=== PATIENT | male | born 1955 | race Caucasian/White ===

== ENCOUNTER → 2016-09-07 | Outpatient (CLI) | payer BC ==
[~2016-09-07] MED LIST: ALL180 PO; ASPCH81X PO; FLUT0.15 NAE; LISI5TAB3 PO; TPRSR/25 PO; VTMD1000 PO
[2016-09-07 17:47] LABS: URINE APPEARANCE CLEAR (CLEAR); URINE BILIRUBIN NEG (NEG); URINE COLOR YELLOW; URINE NITRITE NEG (NEG); URINE SPECIFIC GRAVITY 1.018 (1.000-1.030); UROBILINOGEN NEG (NEG)
[2016-09-07 17:56] LABS: BLOOD UREA NITROGEN 14 mg/dl (7-18); BUN/CREATININE RATIO 14.5 (10-20); CALCIUM 9.4 mg/dl (8.5-10.1); CARBON DIOXIDE 28 mmol/L (21-32); CHLORIDE 106 mmol/L (98-107); CREATININE 0.98 mg/dl (0.60-1.40); GLUCOSE 93 mg/dl (70-99); POTASSIUM 4.2 mmol/L (3.5-5.1); SODIUM 141 mmol/L (136-145)
[2016-09-07 17:58] LABS: MANUAL MICROSCOPIC REQUIRED? NO; REVIEW REQ? NO
== END | disposition home or self-care (01) ==
LOC: C.LAB 16:54
DX: N40.0 Benign prostatic hyperplasia without lower urinary tract symptoms (principal); R35.1 Nocturia

== ENCOUNTER → 2016-09-25 | Outpatient (CLI) | payer BC ==
--- NOTE | 2016-09-25 15:17 | DIAGNOSTIC IMAGING REPORT ---
KUB HISTORY: Generalized abdominal pain. COMPARISON: None. FINDINGS: The bowel gas pattern is unremarkable. There are no dilated loops of small bowel to suggest an obstruction. No renal calculi. No ureteral calculi. Calcifications in the deep pelvis likely represent phleboliths. No pneumoperitoneum or pneumatosis. Moderate well-formed stool seen within the colon. IMPRESSION: No evidence for bowel obstruction. Moderate well-formed stool seen within the colon. Electronically signed by: Sriram Choi M.D. 09/25/2016 3:16 PM Dictated Date/Time: 09/25/2016 3:15 PM
[2016-09-25 15:56] LABS: URINE APPEARANCE CLEAR (CLEAR); URINE BILIRUBIN NEG (NEG); URINE COLOR YELLOW; URINE NITRITE NEG (NEG); URINE SPECIFIC GRAVITY 1.023 (1.000-1.030); UROBILINOGEN NEG (NEG)
[2016-09-25 16:02] LABS: MANUAL MICROSCOPIC REQUIRED? NO; REVIEW REQ? NO
== END | disposition home or self-care (01) ==
LOC: C.RAD 14:26
DX: R10.9 Unspecified abdominal pain (principal); R30.0 Dysuria; K59.00 Constipation, unspecified

== ENCOUNTER → 2016-10-07 | Outpatient (CLI) | payer BC ==
--- NOTE | 2016-11-08 06:52 | CODING QUERY NO DIAGNOSIS ---
TREATMENT RENDERED WITHOUT A DIAGNOSIS To promote full compliance with coding requirements relating to patient care, physician participation is requested in all cases of drug abuse treatment specialist uncertainty. Please assist us with providing a diagnosis/symptom for the test(s) below: A diagnosis/symptom was not documented on your Order. A valid diagnosis/symptom is required to bill all insurances. Please remember that we are unable to code a diagnosis of rule out, probable, possible, questionable, or suspected. Tests that require a diagnosis: DOS 10/07 * Fecal Occult Blood DIAGNOSIS: Provider Signature: Date: Thank you Izzy Collazo [facility] Information Management Once completed, please kindly fax back to [phone] For questions please call [phone]
== END | disposition home or self-care (01) ==
LOC: C.LABSPEC 21:15
DX: Z01.89 Encounter for other specified special examinations (principal)

== ENCOUNTER → 2017-02-27 | Outpatient (CLI) | payer BC | END | disposition home or self-care (01) | LOC: C.LABSPEC 16:57 | PROVIDERS: ATTEND Urology | DX: R30.0 Dysuria (principal) ==

== ENCOUNTER → 2017-05-22 | Outpatient (CLI) | payer BC ==
--- NOTE | 2017-05-22 19:55 | DIAGNOSTIC IMAGING REPORT ---
KUB CLINICAL HISTORY: 61 years-old Male presenting with ABDOMINAL PAIN, CONSTIPATION. TECHNIQUE: Single supine view of the abdomen was obtained. COMPARISON: 09/25/2016. FINDINGS: Moderate stool burden primarily in the right and transverse colon. No bowel obstruction. No gross evidence of free intraperitoneal gas. Allowing for gas and stool, no calcifications project over the renal shadows or along the courses of the ureters. Left hemipelvis phlebolith noted, unchanged in position. Osseous structures normal. Lung bases clear. IMPRESSION: 1. Moderate stool burden in the right and transverse colon. No bowel obstruction. Electronically signed by: Kj Mcmahon M.D. 05/22/2017 7:54 PM Dictated Date/Time: 05/22/2017 7:52 PM
== END | disposition home or self-care (01) ==
LOC: C.RAD 18:49
DX: R10.9 Unspecified abdominal pain (principal); K59.00 Constipation, unspecified

== ENCOUNTER 2024-10-08 16:39 | Observation (INO) ==
[2024-10-08 17:07] LABS: Basophils # (auto) 0.03 K/uL (0.00-0.20); Basophils % (auto) 0.4 %; Eosinophils # (auto) 0.27 K/uL (0.00-0.50); Eosinophils % (auto) 3.5 %; Hematocrit (blood only) 33.5 % (42.0-52.0); Hemoglobin 10.4 g/dl (14.0-18.0); Immature Granulocytes % (auto) 1.3 %; Lymphocytes # (auto) 1.02 K/uL (1.20-3.40); Lymphocytes % (auto) 13.2 %; Mean Corpuscular Hemoglobin 29.4 pg (25.0-34.0); Mean Corpuscular Volume 94.6 fL (80.0-100.0); Mean Platelet Volume 8.1 fL (9.4-12.4); Monocytes # (auto) 0.99 K/uL (0.11-0.59); Monocytes % (auto) 12.8 %; Neutrophils # (auto) 5.32 K/uL (1.40-6.50); Neutrophils % (auto) 68.8 %; Platelet Count 310 K/uL (130-400); RDW Coefficient of Variation 14.9 % (11.5-14.5); RDW Standard Deviation 52.3 fL (36.4-46.3); Red Blood Count 3.54 M/uL (4.70-6.10); White Blood Count 7.73 K/ul (4.8-10.8)
--- NOTE | 2024-10-08 17:23 | Emergency Department Note ---
History of Present Illness General Chief Complaint: Cardiac Assessment Stated Complaint: CARDIAC ASSESSMENT Time Seen by Provider: 10/08/24 17:08 History of Present Illness Provider Complaint: chest pain Duration: improved and now resolved Onset: during rest Pain Location: substernal Maximum Pain Intensity: 1 Current Pain Intensity: 1 Quality: + sharp Relieved By: + nitroglycerin Exacerbated By: + nothing Context: + recent surgery (Recent type a aortic dissection repair); no recent illness, no recent travel or no trauma/injury Associated symptoms: + nausea; no diaphoresis, no dyspnea, no palpitations, no fever or no cough Patient is also reporting pain in his left lower extremity where he had to have a fasciotomy done after his dissection repair. Patient reports he was on wound VAC until yesterday. Home Medications Medication Instructions Recorded Confirmed Type montelukast 10 mg tablet 10 mg PO HS Congestion 04/29/19 10/08/24 History (Singulair) cholecalciferol (vitamin D3) 25 2,000 unit PO QAM 08/29/22 10/08/24 History mcg (1,000 unit) capsule (Vitamin D3) ezetimibe 10 mg tablet (Zetia) 10 mg PO DAILY 05/03/23 10/08/24 History finasteride 5 mg tablet 5 mg PO QAM 05/03/23 10/08/24 History fluticasone propionate 50 1 spray intranasal DAILY 06/26/24 10/08/24 History mcg/actuation nasal spray,suspension (Flonase Allergy Relief) ipratropium bromide 21 mcg (0.03 2 spray intranasal BID PRN nasal 09/12/24 10/08/24 Rx %) nasal spray drainage 90 days #3 BTLS acetaminophen 325 mg tablet 650 mg PO Q4H PRN Pain (Scale 10/08/24 10/08/24 History (Tylenol) Score 1-3) acetaminophen 500 mg tablet 1,000 mg PO Q4H PRN TEMP > 100.5 F 10/08/24 10/08/24 History (Tylenol Extra Strength) acetaminophen 500 mg tablet 1,000 mg PO Q8H 10/08/24 10/08/24 History (Tylenol Extra Strength) albuterol sulfate 2.5 mg/3 mL 2.5 mg inhalation Q4H PRN Wheezing 10/08/24 10/08/24 History (0.083 %) solution for nebulization albuterol sulfate 90 mcg/actuation 1 inh inhalation Q4H PRN Wheezing 10/08/24 10/08/24 History aerosol inhaler apixaban 5 mg tablet (Eliquis) 5 mg PO BID 10/08/24 10/08/24 History atorvastatin 40 mg tablet 80 mg PO HS 10/08/24 10/08/24 History baclofen 5 mg tablet 5 mg PO TID 10/08/24 10/08/24 History bisacodyl 10 mg rectal suppository 10 mg ME DAILY PRN Constipation 10/08/24 10/08/24 History calcium carbonate 500 mg PO Q8H PRN Indigestion 10/08/24 10/08/24 History carvedilol 6.25 mg tablet 6.25 mg PO BIDM 10/08/24 10/08/24 History cephalexin 500 mg capsule 500 mg PO QID 10/08/24 10/08/24 History docusate sodium 100 mg capsule 100 mg PO BID PRN Constipation 10/08/24 10/08/24 History furosemide 40 mg tablet (Lasix) 40 mg PO DAILY 10/08/24 10/08/24 History guaifenesin 600 mg tablet, 600 mg PO BID 10/08/24 10/08/24 History extended release 12 hr (Mucinex) hydrocortisone 2.5 % topical cream 1 applic topical BID PRN 10/08/24 10/08/24 History Hemorrhoids loratadine 10 mg tablet (Claritin) 10 mg PO DAILY PRN 10/08/24 10/08/24 History CONGESTION/ALLERGY SYMPTOMS lorazepam 0.5 mg tablet 0.5 mg PO TID PRN Anxiety 10/08/24 10/08/24 History naloxone 4 mg/actuation nasal spray 4 mg intranasal DIRECTED PRN 10/08/24 10/08/24 History Opioid Overdose nitroglycerin 0.4 mg sublingual 0.4 mg sublingual DIRECTED PRN 10/08/24 10/08/24 History tablet (Nitrostat) Chest Pain ondansetron HCl 4 mg tablet 4 mg PO Q6H PRN NAUSEA/VOMITING 10/08/24 10/08/24 History oxycodone 5 mg tablet 5 mg PO Q4H PRN Pain (Scale Score 10/08/24 10/08/24 History 4-6) oxycodone 5 mg tablet 10 mg PO Q4H PRN Pain (Scale Score 10/08/24 10/08/24 History 7-10) pantoprazole 40 mg tablet,delayed 40 mg PO DAILYBB 10/08/24 10/08/24 History release polyethylene glycol 3350 17 17 g PO DAILY 10/08/24 10/08/24 History gram/dose oral powder (Miralax) polyethylene glycol 3350 17 17 g PO QDL PRN Constipation 10/08/24 10/08/24 History gram/dose oral powder (Miralax) potassium chloride 20 mEq 20 meq PO BID 10/08/24 10/08/24 History tablet,extended release sennosides 8.6 mg-docusate sodium 1 tab-cap PO QDL PRN Constipation 10/08/24 10/08/24 History 50 mg tablet (Senokot-S) simethicone 80 mg chewable tablet 120 mg PO ACHS PRN GAS DISCOMFORT 10/08/24 10/08/24 History sodium chloride 0.65 % nasal spray 1 spray intranasal .Q 30 MINUTES 10/08/24 10/08/24 History aerosol PRN Congestion sodium phosphates 19 gram-7 118 ml ME DAILY PRN Constipation 10/08/24 10/08/24 History gram/118 mL enema (Fleet Enema) Allergies Allergy/AdvReac Type Severity Reaction Status Date / Time No Known Allergies Allergy Verified 10/08/24 19:00 Past Med/Surg History Problem List Chest pain (Acute) Sensorineural hearing loss, bilateral Left knee DJD Arthritis Bilateral groin pain Hearing difficulty of both ears Upper airway cough syndrome Exertional shortness of breath Chronic cough Allergic rhinitis with postnasal drip Chronic sinusitis Low back pain Nasal septal deviation Chronic rhinitis Pulmonary nodule Arthritis of carpometacarpal (CMC) joint of right thumb Bilateral hand numbness Trigger finger, right middle finger Prostate cancer screening Cervical facet syndrome (Chronic) Cervical spondylosis (Chronic) CAD (coronary artery disease) (Chronic) STENT X 1 TO LCX (2010) Per 06/05/18 records- cardiac cath in Jul 2010- lead to PCI to LCx (had significant and complex LCx disease in a dominant Cx vessel; RCA appeared chronically occluded with left to right collaterals; some residual non obstructive disease to LAD Hx of lipoma (Chronic) S/P EXCISION (BACK) History of herniorrhaphy (Chronic) DOUBLE HERNIA REPAIR Degenerative disc disease (Chronic) CERVICAL Osteoarthritis (Chronic) Sleep apnea (Chronic) PRIOR CPAP; RE-TEST S/P WEIGHT LOSS "NEGATIVE" History of cystoscopy (Chronic) Encounter for pre-operative examination History of bunionectomy (Chronic) RIGHT Osteoarthritis (Chronic) BPH (benign prostatic hyperplasia) (Chronic) H/O hemorrhoidectomy (Chronic) History of surgery (Chronic) ?TURBT History of colonoscopy (Chronic) GERD (gastroesophageal reflux disease) (Chronic) no meds > mild per pt > diet changed to correct History of appendectomy (Chronic) History of tooth extraction (Chronic) WISDOM TEETH History of tonsillectomy (Chronic) History of cardiac cath (Chronic) STENT X 1 TO LCX (2010) Hypertension (Chronic) MANAGED ON MEDICATIONS Hyperlipidemia (Chronic) MANAGED ON MEDICATIONS Asthma (Chronic) SEASONAL > only used res inh one time History of heart artery stent Medical History Adverse effect of anesthesia During one surgery had hard time regaining feeling in legs - possibly hemorrhoidectomy Diverticular disease incidental finding on colonoscopy - no issues/hospitalizations Hx of Lyme disease completed antibiotic tx Cervical spondylosis Limited ROM "I get a lot of crunching and crackles" as per patient Restless leg Pulmonary nodule Hx of sleep apnea "has had 2+ sleep studies - unable to tolerate cpap - recently did at home study and I never heard back. My says I snore." Osteoarthritis Hypertension Hyperlipidemia GERD (gastroesophageal reflux disease) Mild - "I haven't really had much in years, or any" Dyspnea pt denies Hypertrophy of nasal turbinates Chronic rhinitis Deviated septum CAD (coronary artery disease) x1 stent 2010 - [facility] Bronchitis "Chronic in the winter - no issues at present Asthma "it was just once" Ascending aorta dilatation 4.1cm per pt with last echo 06/2024 BPH (benign prostatic hyperplasia) "I put finasteride on temp hold" Surgical History Hx of bilateral inguinal hernia repair S/P excision of lipoma right shoulder Hx of wisdom tooth extraction Hx of tonsillectomy Hx of hemorrhoidectomy Hx of colonoscopy History of bunionectomy Bilateral History of bilateral cataract extraction Hx of appendectomy Status post coronary artery stent placement x1 2011 [facility] Hx of cardiac catheterization (2011) x1 stent [facility] History of transurethral resection of bladder tumor (TURBT) History of transurethral resection of prostate S/P trigger finger release right Hx of foot surgery Left Foot [employer] Bunion Correction Social History Smoking Status: Never smoker Second Hand Exposure: No; Do You Dip or Chew Tobacco: No; Hx Alcohol Use: Yes Alcohol type: beer and wine Hx Substance Use: No Preferred Language: [place] Communication Ability: Effective Visual Impairment: No Limitations Automation Tester Required: No Beliefs That Will Affect Care: Gnosticism Gnosticism Beliefs: CONFUCIANISM Current Living Situation: Spouse current occupational status: employed current occupation: Self employed programmer engineering and scientific Feels Safe at Home: Yes Assistive Devices: Glasses Physical Exam Vital Signs Vital Signs - 24 hr 10/08/24 16:39 10/08/24 16:42 10/08/24 16:42 Temperature 36.7 C Temperature Source Oral Pulse Rate 97 H 98 H Pulse Rate [Apical] Respiratory Rate 18 Respiratory Effort / Characteristics Non-Labored Spontaneous Respiratory Depth Normal Respiratory Pattern Regular Blood Pressure 165/110 H Blood Pressure [Left Arm] Blood Pressure Mean 128 Blood Pressure Mean [Left Arm] Blood Pressure Position [Left Arm] Pulse Oximetry 96 96 Oxygen Delivery Method Room Air Room Air Sepsis Recent Fever Within 48 Hours No Sepsis New/Unexplained Change in Mental Status N/A Sepsis Action Taken by Nursing No Action Required 10/08/24 16:42 10/08/24 16:51 10/08/24 16:51 Temperature Temperature Source Pulse Rate 96 H Pulse Rate [Apical] 96 H Respiratory Rate 17 17 Respiratory Effort / Characteristics Non-Labored Spontaneous Respiratory Depth Normal Respiratory Pattern Blood Pressure Blood Pressure [Left Arm] 160/106 H Blood Pressure Mean Blood Pressure Mean [Left Arm] 124 Blood Pressure Position [Left Arm] Semi-fowlers Pulse Oximetry 97 97 Oxygen Delivery Method Room Air Room Air Room Air Sepsis Recent Fever Within 48 Hours Sepsis New/Unexplained Change in Mental Status Sepsis Action Taken by Nursing 10/08/24 18:00 10/08/24 19:00 10/08/24 19:30 Temperature Temperature Source Pulse Rate Pulse Rate [Apical] 97 H 101 H 112 H Respiratory Rate 18 18 20 Respiratory Effort / Characteristics Non-Labored Spontaneous Respiratory Depth Normal Respiratory Pattern Blood Pressure Blood Pressure [Left Arm] 146/103 H 151/114 H 109/90 Blood Pressure Mean Blood Pressure Mean [Left Arm] 117 126 96 Blood Pressure Position [Left Arm] Semi-fowlers Pulse Oximetry 98 97 97 Oxygen Delivery Method Room Air Room Air Room Air Sepsis Recent Fever Within 48 Hours Sepsis New/Unexplained Change in Mental Status Sepsis Action Taken by Nursing 10/08/24 20:00 10/08/24 20:30 10/08/24 20:35 Temperature Temperature Source Pulse Rate 113 H Pulse Rate [Apical] 106 H 113 H Respiratory Rate 22 20 Respiratory Effort / Characteristics Respiratory Depth Respiratory Pattern Blood Pressure Blood Pressure [Left Arm] 156/113 H 138/102 H Blood Pressure Mean Blood Pressure Mean [Left Arm] 127 114 Blood Pressure Position [Left Arm] Pulse Oximetry 97 97 Oxygen Delivery Method Room Air Sepsis Recent Fever Within 48 Hours Sepsis New/Unexplained Change in Mental Status Sepsis Action Taken by Nursing 10/08/24 21:00 10/08/24 21:30 Temperature Temperature Source Pulse Rate Pulse Rate [Apical] 100 H 104 H Respiratory Rate 20 20 Respiratory Effort / Characteristics Respiratory Depth Respiratory Pattern Blood Pressure Blood Pressure [Left Arm] 136/101 H 150/98 H Blood Pressure Mean Blood Pressure Mean [Left Arm] 112 115 Blood Pressure Position [Left Arm] Pulse Oximetry 96 95 Oxygen Delivery Method Room Air Room Air Sepsis Recent Fever Within 48 Hours Sepsis New/Unexplained Change in Mental Status Sepsis Action Taken by Nursing Physical Exam GENERAL: Patient is in no acute distress listening music on his phone. HENT: Exam performed. - Head: Normocephalic and atraumatic. EYES: Conjunctivae and EOM are normal. Pupils are equal, round, and reactive to light. Right eye exhibits no discharge. Left eye exhibits no discharge. No scleral icterus. NECK: Normal range of motion. Neck supple. No JVD present. CV: Normal rate, regular rhythm, normal heart sounds and intact distal pulses. Palpable radial pulses bue. PULM/CHEST: Effort normal and breath sounds normal. No respiratory distress. No stridor. He has no wheezes. He has no rales. ABD: The abdomen is soft. MUSC/SKEL: Left lower extremity is wrapped in a bandage which he states he does not want me to remove. Under the bandage there is a palpable DP pulse. NEURO: He is alert and oriented to person, place, and time. He has normal strength. No cranial nerve deficit or sensory deficit. Course Course 1707: The patient was evaluated in room B10. A complete history and physical exam was performed Cardiac monitoring: An order was placed for continuous cardiac monitoring. The monitor shows a rate of 90 with sinus rhythm interpreted by me 1852: Vital signs stable. Labs show white blood cell count of 7.73 hemoglobin 10.4 platelet count 310 coagulation studies unremarkable. Electrolytes unremarkable. AST 61 ALT 72 alk phos 172 high-sensitivity troponin 44.3. Imaging shows an ascending thoracic aortic graft repair with surrounding blood products which are most likely postoperative without contrast extravasation or evidence of leak. 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 I discussed these cases with [facility] Dr. Vences. He states he was assisting the surgeon during his initial surgery earlier this month. I read him the reports of the CT verbatim and he states these are expected findings. He stated that the residual dissection was normal and the type of procedure that they performed to repair the patient's aorta. 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 I asked him if the patient need to be transferred to their facility at this time and he stated there is no need to transfer the patient at this time from a cardiothoracic surgery standpoint. Patient will be admitted to the hospitalist team for chest pain rule out ACS. Administered Medications Acetaminophen (Acetaminophen 500 Mg Tab) 1,000 mg PO TID PRN PRN Reason: Pain Stop: 11/07/24 20:59 Last Admin: 10/08/24 19:41 Dose: 1,000 mg Documented By: SHABNAM Discontinued Medications Ioversol (Optiray 320 125ml) 115 ml IV ONCE ONE Stop: 10/08/24 17:34 Last Admin: 10/08/24 17:33 Dose: 115 ml Documented By: MADELEINE Medical Decision Making Laboratory Data Attestation: I reviewed the patient's lab results. 10/08/24 16:46 10/08/24 16:46 Labs: Lab Results 10/08/24 10/08/24 10/08/24 Range/Units 16:46 17:20 18:50 WBC 7.73 (4.8-10.8) K/ul RBC 3.54 L (4.70-6.10) M/uL Hgb 10.4 L (14.0-18.0) g/dl POC Hgb 10.9 L (14.0-18.0) g/dl Hct 33.5 L (42.0-52.0) % POC Hct 32 L (42-52) % MCV 94.6 (80.0-100.0) fL MCH 29.4 (25.0-34.0) pg MCHC 31.0 L (32.0-36.0) g/dL RDW Std Deviation 52.3 H (36.4-46.3) fL RDW Coeff of Derrick 14.9 H (11.5-14.5) % Plt Count 310 (130-400) K/uL MPV 8.1 L (9.4-12.4) fL Immature Gran % (Auto) 1.3 % Neut % (Auto) 68.8 % Lymph % (Auto) 13.2 % Peach % (Auto) 12.8 % Eos % (Auto) 3.5 % Baso % (Auto) 0.4 % Neut # (Auto) 5.32 (1.40-6.50) K/uL Lymph # (Auto) 1.02 L (1.20-3.40) K/uL Peach # (Auto) 0.99 H (0.11-0.59) K/uL Eos # (Auto) 0.27 (0.00-0.50) K/uL Baso # (Auto) 0.03 (0.00-0.20) K/uL Immature Gran # (Auto) 0.10 (0.01-0.20) K/uL PT 11.6 (9.0-12.0) Seconds INR 1.1 (0.9-1.1) APTT 25 (21-31) Seconds PTT Ratio 0.9 POC Sodium 134 L (135-144) mmol/L Sodium 134 L (136-145) mmol/L POC Potassium 3.7 (3.3-5.0) mmol/L Potassium 4.2 (3.5-5.1) mmol/L POC Chloride 90 L (101-112) mmol/L Chloride 93 L (98-107) mmol/L Carbon Dioxide 37 H (21-32) mmol/L POC Total CO2 32 H (24-31) mmol/L Anion Gap 4 (3-11) POC Anion Gap 16.0 (16-25) mmol/L POC BUN 29 H (7-18) mg/dl BUN 33 H (6-23) mg/dl Creatinine 0.97 (0.6-1.4) mg/dl POC Creatinine 1.1 (0.6-1.3) mg/dl Est Cr Clr Drug Dosing 63.9 ml/min eGFR 83.98 BUN/Creatinine Ratio 34.0 H (10-20) Glucose 104 H (70-99(Fasting)) mg/dl POC Glucose (other) 101 H (70-99) mg/dl Calcium 9.6 (8.6-10.3) mg/dl POC Ioniz Calcium Jordan 1.20 (1.12-1.32) mmol/l Total Bilirubin 0.7 (0.2-1.0) mg/dl AST 61 H (13-39) U/L ALT 72 H (7-52) U/L Alkaline Phosphatase 172 H (34-104) U/L Troponin I High Sens 44.3 H 44.3 H (0-20) pg/ml Total Protein 6.4 (6.0-8.3) gm/dl Albumin 3.3 L (3.4-5.0) gm/dl Globulin 3.1 (2.5-4.0) gm/dl Albumin/Globulin Ratio 1.1 (0.9-2) Imaging Data Chest x-ray: Attestation: I personally reviewed and interpreted this imaging study as follows: My impression: Chest x-ray negative. Airway clear. No pneumothorax. No consolidation. No cardiomegaly or cephalization.. No free air under the diaphragm. No fractures of the skeletal structures. Radiologist's impression: Chest radiograph, one view History: Chest pain Comparison: 12/06/2021 Findings: Single AP view of the chest performed. No focal consolidation or pleural effusion. No pneumothorax. The cardiomediastinal silhouette is within normal limits. Normal pulmonary vascularity. No evidence for lymphadenopathy. No visualized bony or soft tissue abnormality. Median sternotomy wires in place. Impression: Normal chest radiograph Electronically signed by Carlos Mcclelland 10-08-2024 5:40 PM Dictated: 10/08/24 3027 Transcribed: CT scan - abdomen: Radiologist's impression: EXAMINATION: CT angiogram of the chest, abdomen and pelvis performed after the administration of IV contrast TECHNIQUE: Helical CT angiogram images from the lung apices through the symphysis pubis were obtained with and without contrast. Coronal and sagittal reformatted images were generated at a workstation for further assessment. Dose reduction techniques were achieved by using automatic exposure control and/or adjustment of mA and/or kV according to patient size and/or use of iterative reconstruction technique. COMPARISON: CT of the chest from September 11, 2024 HISTORY: Chest pain FINDINGS: Lines and tubes: None Mediastinum/Neck Base: The heart is enlarged. Evidence of an ascending thoracic aortic graft repair. High density blood products is seen to surround the ascending thoracic aorta. On the postcontrast angiographic images, there is no evidence for contrast extravasation. A dissection remains beyond the repair, extending from the proximal arch, and into the right brachiocephalic artery as well as the right subclavian artery, and also into the left common carotid artery. The dissection extends distally into the aorta, including the descending thoracic aorta into the abdominal aorta, and extending into the left common iliac and the left external and internal iliac arteries. There is relative decreased enhancement of the left sided iliac arteries, likely as it is supplied primarily by the false lumen. The true lumen is seen to supply the right sided iliac arteries. The true lumen supplies of the celiac artery, SMA, right renal artery, and the BRETT. The left renal artery is supplied by the false lumen. A femorofemoral bypass is seen. Extensive surgical clips seen throughout the left groin, as well as soft tissue fullness and fluid density, likely related to evolving hematoma. Normal thoracic vasculature. No thoracic lymphadenopathy. The heart size is enlarged, especially the right atrium. There are heavy coronary calcifications. Lungs: No consolidation. There are trace pleural effusions. No pneumothorax. There is a solid nodule in the lingula measuring 13 mm not significantly changed from 04/09/2023. Bibasilar subsegmental atelectasis. Liver: No suspicious liver lesions. Portal veins appear patent. Gallbladder: No gallstones. No evidence of acute cholecystitis. Spleen: Normal size. Pancreas: No suspicious pancreatic lesions. The pancreatic duct is not dilated. Adrenal glands: No adrenal nodules. Kidneys: No hydronephrosis or obstructing renal stones. Horseshoe morphology of the kidney. Extensive hypoenhancement throughout the periphery of the left renal moiety, suggesting infarct. Nonobstructing tiny stone is seen in the left renal moiety. Bladder / Pelvic organs: Unremarkable. Bowel: No bowel obstruction. No abnormal bowel wall thickening. The appendix is unremarkable. Lymph nodes: No retroperitoneal, mesenteric, or pelvic lymphadenopathy. Peritoneum / Retroperitoneum: No free fluid or air within the abdomen. Vessels: See above discussion concerning the abdominal aorta and major branch vessels. Bones and soft tissues: Degenerative changes of the spine. No acute osseous normality. Median sternotomy wires are in place. The bones of the sternal portions appear grossly unremarkable without destruction. No overlying fluid collection. IMPRESSION: 1. Interval changes of an ascending thoracic aortic graft repair. There is surrounding blood products, which is likely postoperative without contrast extravasation or evidence for leak. 2. Persistent dissection involving the great vessels, the descending thoracic aorta, abdominal aorta, and branch vessels, as above. 3. Evolving left renal moiety infarct, appears decreased from September 11, 2024. Electronically signed by Carlos Mcclelland 10-08-2024 6:28 PM Dictated: 10/08/24 [id number] Transcribed: CT scan - chest: Radiologist's impression: EXAMINATION: CT angiogram of the chest, abdomen and pelvis performed after the administration of IV contrast TECHNIQUE: Helical CT angiogram images from the lung apices through the symphysis pubis were obtained with and without contrast. Coronal and sagittal reformatted images were generated at a workstation for further assessment. Dose reduction techniques were achieved by using automatic exposure control and/or adjustment of mA and/or kV according to patient size and/or use of iterative reconstruction technique. COMPARISON: CT of the chest from September 11, 2024 HISTORY: Chest pain FINDINGS: Lines and tubes: None Mediastinum/Neck Base: The heart is enlarged. Evidence of an ascending thoracic aortic graft repair. High density blood products is seen to surround the ascending thoracic aorta. On the postcontrast angiographic images, there is no evidence for contrast extravasation. A dissection remains beyond the repair, extending from the proximal arch, and into the right brachiocephalic artery as well as the right subclavian artery, and also into the left common carotid artery. The dissection extends distally into the aorta, including the descending thoracic aorta into the abdominal aorta, and extending into the left common iliac and the left external and internal iliac arteries. There is relative decreased enhancement of the left sided iliac arteries, likely as it is supplied primarily by the false lumen. The true lumen is seen to supply the right sided iliac arteries. The true lumen supplies of the celiac artery, SMA, right renal artery, and the BRETT. The left renal artery is supplied by the false lumen. A femorofemoral bypass is seen. Extensive surgical clips seen throughout the left groin, as well as soft tissue fullness and fluid density, likely related to evolving hematoma. Normal thoracic vasculature. No thoracic lymphadenopathy. The heart size is enlarged, especially the right atrium. There are heavy coronary calcifications. Lungs: No consolidation. There are trace pleural effusions. No pneumothorax. There is a solid nodule in the lingula measuring 13 mm not significantly changed from 04/09/2023. Bibasilar subsegmental atelectasis. Liver: No suspicious liver lesions. Portal veins appear patent. Gallbladder: No gallstones. No evidence of acute cholecystitis. Spleen: Normal size. Pancreas: No suspicious pancreatic lesions. The pancreatic duct is not dilated. Adrenal glands: No adrenal nodules. Kidneys: No hydronephrosis or obstructing renal stones. Horseshoe morphology of the kidney. Extensive hypoenhancement throughout the periphery of the left renal moiety, suggesting infarct. Nonobstructing tiny stone is seen in the left renal moiety. Bladder / Pelvic organs: Unremarkable. Bowel: No bowel obstruction. No abnormal bowel wall thickening. The appendix is unremarkable. Lymph nodes: No retroperitoneal, mesenteric, or pelvic lymphadenopathy. Peritoneum / Retroperitoneum: No free fluid or air within the abdomen. Vessels: See above discussion concerning the abdominal aorta and major branch vessels. Bones and soft tissues: Degenerative changes of the spine. No acute osseous normality. Median sternotomy wires are in place. The bones of the sternal portions appear grossly unremarkable without destruction. No overlying fluid collection. IMPRESSION: 1. Interval changes of an ascending thoracic aortic graft repair. There is surrounding blood products, which is likely postoperative without contrast extravasation or evidence for leak. 2. Persistent dissection involving the great vessels, the descending thoracic aorta, abdominal aorta, and branch vessels, as above. 3. Evolving left renal moiety infarct, appears decreased from September 11, 2024. Electronically signed by Carlos Mcclelland 10-08-2024 6:28 PM Dictated: 10/08/24 [id number] Transcribed: ECG Data Attestation: I personally reviewed and interpreted this ECG as follows: Rate (beats per minute): 96 Rhythm: normal sinus Findings: no ST depression, no ST elevation or no prolonged QT [facility] Narrative 1708: The patient was evaluated in room B10. A complete history and physical exam was performed Cardiac monitoring: An order was placed for continuous cardiac monitoring. The monitor shows a rate of 90 with sinus rhythm interpreted by me 1852: Vital signs stable. Labs show white blood cell count of 7.73 hemoglobin 10.4 platelet count 310 coagulation studies unremarkable. Electrolytes unremarkable. AST 61 ALT 72 alk phos 172 high-sensitivity troponin 44.3. Imaging shows an ascending thoracic aortic graft repair with surrounding blood products which are most likely postoperative without contrast extravasation or evidence of leak. 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 I discussed these cases with [facility] Dr. Vences. He states he was assisting the surgeon during his initial surgery earlier this month. I read him the reports of the CT verbatim and he states these are expected findings. He stated that the residual dissection was normal and the type of procedure that they performed to repair the patient's aorta. 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 I asked him if the patient need to be transferred to their facility at this time and he stated there is no need to transfer the patient at this time from a cardiothoracic surgery standpoint. Patient will be admitted to the hospitalist team for chest pain rule out ACS. Impression & Plan Chest pain Discharge Plan Visit Data Chief Complaint: Cardiac Assessment Stated Complaint: CARDIAC ASSESSMENT ED Provider: Len Snell Discharge Problem: Chest pain Patient Disposition: Admitted As Inpatient Forms Stand Alone Forms: My [facility] Prescriptions Prescriptions: No Action ipratropium bromide 21 mcg (0.03 %) spray,non-aerosol 2 spray intranasal BID PRN (Reason: nasal drainage) 90 Days Qty: 3 4RF Rx Instructions: administer into each nostril cholecalciferol (vitamin D3) [Vitamin D3] 25 mcg (1,000 unit) capsule 2,000 unit PO QAM montelukast [Singulair] 10 mg Tablet 10 mg PO HS ezetimibe [Zetia] 10 mg Tablet 10 mg PO DAILY finasteride 5 mg tablet 5 mg PO QAM Patient Comments: "Temporary hold" fluticasone propionate [Flonase Allergy Relief] 50 mcg/actuation spray,suspension 1 spray intranasal DAILY Rx Instructions: administer into each nostril furosemide [Lasix] 40 mg Tablet 40 mg PO DAILY atorvastatin 40 mg Tablet 80 mg PO HS acetaminophen [Tylenol] 325 mg Tablet 650 mg PO Q4H PRN (Reason: Pain (Scale Score 1-3)) carvedilol 6.25 mg Tablet 6.25 mg PO BIDM Rx Instructions: must administer with a meal/food albuterol sulfate 2.5 mg /3 mL (0.083 %) Solution For Nebulization 2.5 mg INHALATION Q4H PRN (Reason: Wheezing) ondansetron HCl [Zofran] 4 mg Tablet 4 mg PO Q6H PRN (Reason: NAUSEA/VOMITING) sennosides-docusate sodium [Senokot-S] 8.6-50 mg Tablet 1 tab-cap PO QDL PRN (Reason: Constipation) acetaminophen [Tylenol Extra Strength] 500 mg Tablet 1,000 mg PO Q4H PRN (Reason: TEMP > 100.5 F) acetaminophen [Tylenol Extra Strength] 500 mg Tablet 1,000 mg PO Q8H lorazepam 0.5 mg Tablet 0.5 mg PO TID PRN (Reason: Anxiety) bisacodyl 10 mg Suppository 10 mg ME DAILY PRN (Reason: Constipation) cephalexin 500 mg Capsule 500 mg PO QID Rx Instructions: STARTED 10/05/24 pantoprazole 40 mg Tablet,Delayed Release (Dr/Ec) 40 mg PO DAILYBB Fleet Enema 19-7 gram/118 mL Enema 118 ml ME DAILY PRN (Reason: Constipation) nitroglycerin [Nitrostat] 0.4 mg Tablet, Sublingual 0.4 mg sublingual DIRECTED PRN (Reason: Chest Pain) docusate sodium 100 mg Capsule 100 mg PO BID PRN (Reason: Constipation) hydrocortisone 2.5 % Cream 1 applic TOPICAL BID PRN (Reason: Hemorrhoids) calcium carbonate [Tums 500] 500 mg calcium (1,250 mg) Tablet,Chewable 500 mg PO Q8H PRN (Reason: Indigestion) polyethylene glycol 3350 [Miralax] 17 gram/dose Powder 17 g PO QDL PRN (Reason: Constipation) polyethylene glycol 3350 [Miralax] 17 gram/dose Powder 17 g PO DAILY albuterol sulfate 90 mcg/actuation Hfa Aerosol Inhaler 1 inh INHALATION Q4H PRN (Reason: Wheezing) loratadine [Claritin] 10 mg Tablet 10 mg PO DAILY PRN (Reason: CONGESTION/ALLERGY SYMPTOMS) simethicone 80 mg Tablet,Chewable 120 mg PO ACHS PRN (Reason: GAS DISCOMFORT) oxycodone 5 mg Tablet 10 mg PO Q4H PRN (Reason: Pain (Scale Score 7-10)) oxycodone 5 mg Tablet 5 mg PO Q4H PRN (Reason: Pain (Scale Score 4-6)) sodium chloride 0.65 % Aerosol,[place] 1 spray INTRANASAL .Q 30 MINUTES PRN (Reason: Congestion) Eliquis 5 mg Tablet 5 mg PO BID guaifenesin [Mucinex] 600 mg Tablet Extended Release 12hr 600 mg PO BID potassium chloride 20 mEq Tablet Extended Release 20 meq PO BID naloxone 4 mg/actuation [place],Non-Aerosol 4 mg INTRANASAL DIRECTED PRN (Reason: Opioid Overdose) baclofen 5 mg Tablet 5 mg PO TID Referrals Referrals: Renee Perez MD [Primary Care Provider] - Discharge Problem: Chest pain Qualifiers: Chest pain type: unspecified Qualified Code(s): R07.9 - Chest pain, unspecified
[2024-10-08 17:32] LABS: iSTAT Creatinine 1.1 mg/dl (0.6-1.3); iSTAT Hemoglobin 10.9 g/dl (14.0-18.0); iSTAT Ionized Calcium 1.2 mmol/l (1.12-1.32); iSTAT Potassium 3.7 mmol/L (3.3-5.0)
[2024-10-08] MEDS: OPTIRAY 320 125ml IV ONE (17:33)
[2024-10-08 17:41] LABS: INR 1.1 (0.9-1.1); Partial Thromboplastin Ratio 0.9; Partial Thromboplastin Time 25 Seconds (21-31); Prothrombin Time 11.6 Seconds (9.0-12.0)
--- NOTE | 2024-10-08 17:42 | XRay Report ---
Chest radiograph, one view History: Chest pain Comparison: 12/06/2021 Findings: Single AP view of the chest performed. No focal consolidation or pleural effusion. No pneumothorax. The cardiomediastinal silhouette is within normal limits. Normal pulmonary vascularity. No evidence for lymphadenopathy. No visualized bony or soft tissue abnormality. Median sternotomy wires in place. Impression: Normal chest radiograph Electronically signed by Carlos Mcclelland 10-08-2024 5:40 PM
[2024-10-08 18:18] LABS: Albumin Globulin Ratio 1.1 (0.9-2); Albumin Level 3.3 gm/dl (3.4-5.0); Bilirubin,Total 0.7 mg/dl (0.2-1.0); Calcium 9.6 mg/dl (8.6-10.3); Creatinine Clr Calc Pharmacy 63.9 ml/min; Globulin 3.1 gm/dl (2.5-4.0); Potassium 4.2 mmol/L (3.5-5.1); Total Protein 6.4 gm/dl (6.0-8.3)
[2024-10-08 18:21] LABS: Troponin I High Sensitivity 44.3 pg/ml (0-20)
--- NOTE | 2024-10-08 18:28 | CT Scan Report ---
EXAMINATION: CT angiogram of the chest, abdomen and pelvis performed after the administration of IV contrast TECHNIQUE: Helical CT angiogram images from the lung apices through the symphysis pubis were obtained with and without contrast. Coronal and sagittal reformatted images were generated at a workstation for further assessment. Dose reduction techniques were achieved by using automatic exposure control and/or adjustment of mA and/or kV according to patient size and/or use of iterative reconstruction technique. COMPARISON: CT of the chest from September 11, 2024 HISTORY: Chest pain FINDINGS: Lines and tubes: None Mediastinum/Neck Base: The heart is enlarged. Evidence of an ascending thoracic aortic graft repair. High density blood products is seen to surround the ascending thoracic aorta. On the postcontrast angiographic images, there is no evidence for contrast extravasation. A dissection remains beyond the repair, extending from the proximal arch, and into the right brachiocephalic artery as well as the right subclavian artery, and also into the left common carotid artery. The dissection extends distally into the aorta, including the descending thoracic aorta into the abdominal aorta, and extending into the left common iliac and the left external and internal iliac arteries. There is relative decreased enhancement of the left sided iliac arteries, likely as it is supplied primarily by the false lumen. The true lumen is seen to supply the right sided iliac arteries. The true lumen supplies of the celiac artery, SMA, right renal artery, and the BRETT. The left renal artery is supplied by the false lumen. A femorofemoral bypass is seen. Extensive surgical clips seen throughout the left groin, as well as soft tissue fullness and fluid density, likely related to evolving hematoma. Normal thoracic vasculature. No thoracic lymphadenopathy. The heart size is enlarged, especially the right atrium. There are heavy coronary calcifications. Lungs: No consolidation. There are trace pleural effusions. No pneumothorax. There is a solid nodule in the lingula measuring 13 mm not significantly changed from 04/09/2023. Bibasilar subsegmental atelectasis. Liver: No suspicious liver lesions. Portal veins appear patent. Gallbladder: No gallstones. No evidence of acute cholecystitis. Spleen: Normal size. Pancreas: No suspicious pancreatic lesions. The pancreatic duct is not dilated. Adrenal glands: No adrenal nodules. Kidneys: No hydronephrosis or obstructing renal stones. Horseshoe morphology of the kidney. Extensive hypoenhancement throughout the periphery of the left renal moiety, suggesting infarct. Nonobstructing tiny stone is seen in the left renal moiety. Bladder / Pelvic organs: Unremarkable. Bowel: No bowel obstruction. No abnormal bowel wall thickening. The appendix is unremarkable. Lymph nodes: No retroperitoneal, mesenteric, or pelvic lymphadenopathy. Peritoneum / Retroperitoneum: No free fluid or air within the abdomen. Vessels: See above discussion concerning the abdominal aorta and major branch vessels. Bones and soft tissues: Degenerative changes of the spine. No acute osseous normality. Median sternotomy wires are in place. The bones of the sternal portions appear grossly unremarkable without destruction. No overlying fluid collection. IMPRESSION: 1. Interval changes of an ascending thoracic aortic graft repair. There is surrounding blood products, which is likely postoperative without contrast extravasation or evidence for leak. 2. Persistent dissection involving the great vessels, the descending thoracic aorta, abdominal aorta, and branch vessels, as above. 3. Evolving left renal moiety infarct, appears decreased from September 11, 2024. Electronically signed by Carlos Mcclelland 10-08-2024 6:28 PM
--- NOTE | 2024-10-08 19:33 | History & Physical Report ---
Date of Service October 08, 2024 Assessment & Plan (1) CAD (coronary artery disease): (2) Asthma: (3) BPH (benign prostatic hyperplasia): Plan 68-year-old male presents with chest pain after recent aortic dissection repair. Patient had repair done at [facility]. He has residual distal dissection that involve most of his descending aorta. He is a femorofemoral bypass. He had a wound VAC in place from fasciotomy on his lower extremity which is currently on cephalexin for infection. He has a mildly elevated troponin and presentation and an abnormal EKG although has some similar T wave changes to the postoperative EKG to compare. There appears to be no acute curre nt of injury. 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 #Chest pain elevated troponin. Patient has known history of coronary disease with a previous stent to his circumflex artery. Will trend his troponins we will get an echocardiogram will continue his carvedilol. Aspirin. Atorvastatin 40 apixaban 5 Zetia 10. The patient typically follows with [facility] cardiology #Peripheral artery disease with femorofemoral bypass and fasciotomies of his left lower extremity currently on cephalexin for antibiotic therapy with daily wound changes required. #Asthma patient follows with pulmonary medicine he does have pulmonary nodules with are stable. He will continue on his Singulair and have as needed Flonase for nasal congestion. #History of BPH patient has previously been on Proscar therapy but currently not receiving any he has previously had prostate procedures done to improve his flow. #DVT prevention is apixaban therapy at this time History of Present Illness Primary Care Provider: Renee Perez MD 68-year-old male who presented on September [address] [place] [address] was found to have a type B aortic dissection involving the aortic arch and extending to the great vessels. He was transferred emergently to [facility] for repair and was convalescing at [facility] when he developed some chest discomfort. His initial presenting symptoms was chest and jaw discomfort so he presented to our facility. He has a mildly elevated troponin to the 40s and an abnormal EKG although we do not have a postop EKG to compare to. He had a wound VAC on his leg from the bypass insertion site does not appear to be actively infected he is mildly anemic but his hemoglobin in the 10 g range, his renal function is stable and he is a known horseshoe kidney. The emergency room physician Dr. Snell reportedly discussed his imaging of his chest abdomen pelvis with [facility] and they feel his repair is intact. This also notes of femorofemoral bypass and that the dissection is still extended distally through the descending aorta into the iliac arteries including the renal arteries in the arteries of the gut some being supplied by the true lumen some being supplied by the false lumen Allergies Allergy/AdvReac Type Severity Reaction Status Date / Time No Known Allergies Allergy Verified 10/08/24 19:00 Home Medications Medication Instructions Recorded Confirmed Type montelukast 10 mg tablet 10 mg PO HS Congestion 04/29/19 10/08/24 History (Singulair) cholecalciferol (vitamin D3) 25 2,000 unit PO QAM 08/29/22 10/08/24 History mcg (1,000 unit) capsule (Vitamin D3) ezetimibe 10 mg tablet (Zetia) 10 mg PO DAILY 05/03/23 10/08/24 History finasteride 5 mg tablet 5 mg PO QAM 05/03/23 10/08/24 History fluticasone propionate 50 1 spray intranasal DAILY 06/26/24 10/08/24 History mcg/actuation nasal spray,suspension (Flonase Allergy Relief) ipratropium bromide 21 mcg (0.03 2 spray intranasal BID PRN nasal 09/12/24 10/08/24 Rx %) nasal spray drainage 90 days #3 BTLS acetaminophen 325 mg tablet 650 mg PO Q4H PRN Pain (Scale 10/08/24 10/08/24 H istory (Tylenol) Score 1-3) acetaminophen 500 mg tablet 1,000 mg PO Q4H PRN TEMP > 100.5 F 10/08/24 10/08/24 History (Tylenol Extra Strength) acetaminophen 500 mg tablet 1,000 mg PO Q8H 10/08/24 10/08/24 History (Tylenol Extra Strength) albuterol sulfate 2.5 mg/3 mL 2.5 mg inhalation Q4H PRN Wheezing 10/08/24 10/08/24 History (0.083 %) solution for nebulization albuterol sulfate 90 mcg/actuation 1 inh inhalation Q4H PRN Wheezing 10/08/24 10/08/24 History aerosol inhaler apixaban 5 mg tablet (Eliquis) 5 mg PO BID 10/08/24 10/08/24 History atorvastatin 40 mg tablet 80 mg PO HS 10/08/24 10/08/24 History baclofen 5 mg tablet 5 mg PO TID 10/08/24 10/08/24 History bisacodyl 10 mg rectal suppository 10 mg DE DAILY PRN Constipation 10/08/24 10/08/24 History calcium carbonate 500 mg PO Q8H PRN Indigestion 10/08/24 10/08/24 History carvedilol 6.25 mg tablet 6.25 mg PO BIDM 10/08/24 10/08/24 History cephalexin 500 mg capsule 500 mg PO QID 10/08/24 10/08/24 History docusate sodium 100 mg capsule 100 mg PO BID PRN Constipation 10/08/24 10/08/24 History furosemide 40 mg tablet (Lasix) 40 mg PO DAILY 10/08/24 10/08/24 History guaifenesin 600 mg tablet, 600 mg PO BID 10/08/24 10/08/24 History extended release 12 hr (Mucinex) hydrocortisone 2.5 % topical cream 1 applic topical BID PRN 10/08/24 10/08/24 History Hemorrhoids loratadine 10 mg tablet (Claritin) 10 mg PO DAILY PRN 10/08/24 10/08/24 History CONGESTION/ALLERGY SYMPTOMS lorazepam 0.5 mg tablet 0.5 mg PO TID PRN Anxiety 10/08/24 10/08/24 History naloxone 4 mg/actuation nasal spray 4 mg intranasal DIRECTED PRN 10/08/24 10/08/24 History Opioid Overdose nitroglycerin 0.4 mg sublingual 0.4 mg sublingual DIRECTED PRN 10/08/24 10/08/24 History tablet (Nitrostat) Chest Pain ondansetron HCl 4 mg tablet 4 mg PO Q6H PRN NAUSEA/VOMITING 10/08/24 10/08/24 History oxycodone 5 mg tablet 5 mg PO Q4H PRN Pain (Scale Score 10/08/24 10/08/24 History 4-6) oxycodone 5 mg tablet 10 mg PO Q4H PRN Pain (Scale Score 10/08/24 10/08/24 History 7-10) pantoprazole 40 mg tablet,delayed 40 mg PO DAILYBB 10/08/24 10/08/24 History release polyethylene glycol 3350 17 17 g PO DAILY 10/08/24 10/08/24 History gram/dose oral powder (Miralax) polyethylene glycol 3350 17 17 g PO QDL PRN Constipation 10/08/24 10/08/24 History gram/dose oral powder (Miralax) potassium chloride 20 mEq 20 meq PO BID 10/08/24 10/08/24 History tablet,extended release sennosides 8.6 mg-docusate sodium 1 tab-cap PO QDL PRN Constipation 10/08/24 10/08/24 History 50 mg tablet (Senokot-S) simethicone 80 mg chewable tablet 120 mg PO ACHS PRN GAS DISCOMFORT 10/08/24 10/08/24 History sodium chloride 0.65 % nasal spray 1 spray intranasal .Q 30 MINUTES 10/08/24 10/08/24 History aerosol PRN Congestion sodium phosphates 19 gram-7 118 ml DE DAILY PRN Constipation 10/08/24 10/08/24 History gram/118 mL enema (Fleet Enema) Past Med/Surg History Problem List Sensorineural hearing loss, bilateral Left knee DJD Arthritis Bilateral groin pain Hearing difficulty of both ears Upper airway cough syndrome Exertional shortness of breath Chronic cough Allergic rhinitis with postnasal drip Chronic sinusitis Low back pain Nasal septal deviation Chronic rhinitis Pulmonary nodule Arthritis of carpometacarpal (CMC) joint of right thumb Bilateral hand numbness Trigger finger, right middle finger Prostate cancer screening Cervical facet syndrome (Chronic) Cervical spondylosis (Chronic) CAD (coronary artery disease) (Chronic) STENT X 1 TO LCX (2010) Per 06/05/18 records- cardiac cath in Jul 2010- lead to PCI to LCx (had significant and complex LCx disease in a dominant Cx vessel; RCA appeared chronically occluded with left to right collaterals; some residual non obstructive disease to LAD Hx of lipoma (Chronic) S/P EXCISION (BACK) History of herniorrhaphy (Chronic) DOUBLE HERNIA REPAIR Degenerative disc disease (Chronic) CERVICAL Osteoarthritis (Chronic) Sleep apnea (Chronic) PRIOR CPAP; RE-TEST S/P WEIGHT LOSS "NEGATIVE" History of cystoscopy (Chronic) Encounter for pre-operative examination History of bunionectomy (Chronic) RIGHT Osteoarthritis (Chronic) BPH (benign prostatic hyperplasia) (Chronic) H/O hemorrhoidectomy (Chronic) History of surgery (Chronic) ?TURBT History of colonoscopy (Chronic) GERD (gastroesophageal reflux disease) (Chronic) no meds > mild per pt > diet changed to correct History of appendectomy (Chronic) History of tooth extraction (Chronic) WISDOM TEETH History of tonsillectomy (Chronic) History of cardiac cath (Chronic) STENT X 1 TO LCX (2010) Hypertension (Chronic) MANAGED ON MEDICATIONS Hyperlipidemia (Chronic) MANAGED ON MEDICATIONS Asthma (Chronic) SEASONAL > only used res inh one time History of heart artery stent Medical History Adverse effect of anesthesia During one surgery had hard time regaining feeling in legs - possibly hemorr hoidectomy Diverticular disease incidental finding on colonoscopy - no issues/hospitalizations Hx of Lyme disease completed antibiotic tx Cervical spondylosis Limited ROM "I get a lot of crunching and crackles" as per patient Restless leg Pulmonary nodule Hx of sleep apnea "has had 2+ sleep studies - unable to tolerate cpap - recently did at home study and I never heard back. My says I snore." Osteoarthritis Hypertension Hyperlipidemia GERD (gastroesophageal reflux disease) Mild - "I haven't really had much in years, or any" Dyspnea pt denies Hypertrophy of nasal turbinates Chronic rhinitis Deviated septum CAD (coronary artery disease) x1 stent 2010 - [facility] Bronchitis "Chronic in the winter - no issues at present Asthma "it was just once" Ascending aorta dilatation 4.1cm per pt with last echo 06/2024 BPH (benign prostatic hyperplasia) "I put finasteride on temp hold" Surgical History Hx of bilateral inguinal hernia repair S/P excision of lipoma right shoulder Hx of wisdom tooth extraction Hx of tonsillectomy Hx of hemorrhoidectomy Hx of colonoscopy History of bunionectomy Bilateral History of bilateral cataract extraction Hx of appendectomy Status post coronary artery stent placement x1 2011 [facility] Hx of cardiac catheterization (2010) x1 stent [facility] Card[facility] Fragin History of transurethral resection of bladder tumor (TURBT) History of transurethral resection of prostate S/P trigger finger release right Hx of foot surgery Left Foot [employer] Bunion Correction Social History Smoking Status: Never smoker Second Hand Exposure: No; Do You Dip or Chew Tobacco: No; Hx Alcohol Use: Yes Alcohol type: beer and wine Hx Substance Use: No Preferred Language: Slovenian Communication Ability: Effective Visual Impairment: No Limitations Art Specialist Required: No Beliefs That Will Affect Care: Faith Faith Beliefs: WORSHIP Current Living Situation: Spouse current occupational status: employed current occupation: Self employed civil transportation engineer Feels Safe at Home: Yes Assistive Devices: Glasses Review of Systems Review of Systems: Mild distress and fatigue no headache, no visual changes no speech or swallowing issues no chest pain, pressure or palpitations no shortness of breath, cough or wheezes no abdominal pain, nausea or vomiting, diarrhea or constipation no dysuria, hematuria or frequency no focal joint pain or swelling no back pain, CVA tenderness or radicular pain no bruising, bleeding or rashes no focal signs of weakness or numbness or altered sensation no complaints of anxiety or depression.. Physical Exam Physical Exam: The patient appeared well nourished and normally developed. Vital signs as documented. Head exam is normocephalic atraumatic Neck is without JVD, thyromegaly, or carotid bruits. Lungs are clear to auscultation, no focal loss of breath sounds Cardiac exam, Rhythm is regular.. No murmurs, rubs or gallops. Abdominal exam reveals normal bowel sounds, soft non tender, no masses Extremities are nonedematous and both pedal pulses are present Neurologic exam is alert and oriented, no focal loss of strength or sensation Skin is without bruises or rashes Psychologically is without concerns for anxiety or depression.. Results & Data Results & Data Vital Signs (Past 12 Hours) Vital Signs Temp Pulse Pulse Resp BP BP Pulse Ox 10/08/24 18:00 97 H 18 146/103 H 98 10/08/24 16:51 96 H 17 97 10/08/24 16:51 10/08/24 16:42 96 H 17 160/106 H 97 10/08/24 16:42 96 10/08/24 16:42 98.1 F 98 H 18 165/110 H 96 10/08/24 16:39 97 H O2 Del Method 10/08/24 18:00 Room Air 10/08/24 16:51 Room Air 10/08/24 16:51 Room Air 10/08/24 16:42 Room Air 10/08/24 16:42 Room Air 10/08/24 16:42 Room Air 10/08/24 16:39 Code Status & VTE Plan VTE Prophylaxis Plan VTE Prophylaxis will be ordered: Yes PG Care Time/CCT Total # of Minutes Spent Total Time Spent with Patient: Total time spent is greater than 50% in coordination of care (as documented) at patient's floor/unit and/or counseling patient: Coding Level of Care Code 69373 INT INP/OBS CARE 375MIN Diagnoses CAD (coronary artery disease) I25.10 Asthma J45.909 BPH (benign prostatic hyperplasia) N40.0
[2024-10-08] MEDS: ACETAMINOPHEN 500 MG TAB PO PRN (19:41)
[2024-10-08] MEDS ORDERED: MoRPHine SULFATE 2 MG/ML CARP IV PRN (22:39)
[2024-10-08] MEDS ORDERED: hydrALAZINE HCL 20 MG/ML VIAL IV PRN (22:39)
[2024-10-08] MEDS ORDERED: ALUMINUM/MAGNESIUM SUSP 30 ML UDC PO PRN (22:39)
[2024-10-08] MEDS ORDERED: ALBUTEROL HFA 8 GM INHALER INH PRN (22:39)
[2024-10-08] MEDS ORDERED: NITROGLYCERIN SL 0.4 MG/TAB TAB SL PRN (22:39)
[2024-10-08] MEDS ORDERED: ONDANSETRON INJ 2 MG/ML 2 ML VIAL IV PRN (22:39)
[2024-10-08] MEDS: oxyCODONE HCL IR 5 MG TAB (IMMEDIATE RELEASE) PO PRN (23:07)
[2024-10-08] MEDS: LORazepam 0.5 MG TAB PO PRN (23:08)
[2024-10-08] MEDS: MONTELUKAST SODIUM 10 MG TABLET PO SCH (23:09)
[2024-10-08] MEDS: EZETIMIBE 10 MG TAB PO SCH (23:12)
[2024-10-08] MEDS: cephALEXin 500 MG CAP PO SCH (23:12)
[2024-10-08] MEDS: BACLOFEN 10 MG TAB PO SCH (23:12)
[2024-10-08] MEDS: ATORVASTATIN 40 MG TAB PO SCH (23:13)
[2024-10-08] MEDS: guaiFENesin 600 MG TABCR PO SCH (23:14)
[2024-10-08] MEDS: APIXABAN 5 MG TABLET PO SCH (23:14)
[2024-10-08] MEDS: ROSUVASTATIN CALCIUM 20 MG TAB PO SCH (23:15)
[2024-10-08] MEDS: POTASSIUM CHLORIDE CRTAB 20 MEQ TABCR PO SCH (23:24)
[2024-10-08] MEDS: ACETAMINOPHEN 500 MG TAB PO SCH (23:28)
[2024-10-09] MEDS: ACETAMINOPHEN 500 MG TAB PO SCH (06:04)
--- OUTSIDE RECORDS SUMMARY | 2024-10-09 06:52 | External Medical Summary | Continuity of Care Document ---
Author Name Unknown Organization [facility] Address [address] [place] [address] [phone] Care Team Providers Care Building Rental Superintendent Name Role Phone Renee Perez Primary Care Physician [phone] [facility]counter [facility] [id number] Date(s): 09/11/24 - 09/23/[address] [id number] [phone] Encounter Diagnosis Type A aortic dissection(Discharge Diagnosis) - 09/11/24 S/P aortic dissection repair(Discharge Diagnosis) - 09/11/24 Lactic acidosis(Discharge Diagnosis) - 09/11/24 Hypotension(Discharge Diagnosis) - 09/11/24 Right ventricular dysfunction(Discharge Diagnosis) - 09/11/24 Acute blood loss as cause of postoperative anemia(Discharge Diagnosis) - 09/11/24 Thrombocytopenia(Discharge Diagnosis) - 09/11/24 Hyperglycemia(Discharge Diagnosis) - 09/11/24 Respiratory acidosis(Discharge Diagnosis) - 09/12/24 Hypercarbia(Discharge Diagnosis) - 09/12/24 Aortic aneurysm(Discharge Diagnosis) - 09/11/24 Dissection of ascending aorta(Final) - Postprocedural cardiogenic shock, initial encounter(Final) - Other secondary thrombocytopenia(Final) - Ankylosing spondylitis of multiple sites in spine(Final) - Essential (primary) hypertension(Final) - Acute posthemorrhagic anemia(Final) - Atelectasis(Final) - Acute kidney failure, unspecified(Final) - Hypo-osmolality and hyponatremia(Final) - Other acidosis(Final) - Hyperosmolality and hypernatremia(Final) - Unspecified jaundice(Final) - Hyperlipidemia, unspecified(Final) - Atherosclerotic heart disease of [place] coronary artery without angina pectoris (Final) - Benign prostatic hyperplasia without lower urinary tract symptoms(Final) - Postprocedural hypotension(Final) - Other disorders of electrolyte and fluid balance, not elsewhere classified (Final) - Fluid overload, unspecified(Final) - Solitary pulmonary nodule(Final) - Acute bronchitis, unspecified(Final) - Hyperglycemia, unspecified(Final) - Chronic total occlusion of coronary artery(Final) - exterminator termite (current) use of aspirin(Final) - Other intermediate (current) drug therapy(Final) - Coronary angioplasty status(Final) - Discharge Disposition: Inpatient Rehab Facility/Unit Attending Physician: MD Cesar Jonathan M Admitting Physician: JOSSE Trotter, Susana Croft Referring Physician: MD Kwasi, Aminata Montesinos Encounter Type: Inpatient Allergies, Adverse Reactions, Alerts No Known Medication Allergies Functional Status 09/23/24 Neurological Symptoms Numbness, Tingling, Weakness ADLs Moderate assistance Facial Symmetry Symmetric Gait Shuffling, Unsteady Swallowing Difficulty None Level of Consciousness Neuro Alert Hallucinations Present None Speech Pattern Clear 09/23/24 History of Fall in Last 3 Months Sagastume N o Presence of Secondary Diagnosis Sagastume Ye s Use of Ambulatory Aid Sagastume Crutches/can e/walker IV/Heparin Lock Fall Risk Sagastume Yes Gait/Transferring Fall Risk Sagastume Weak Mental Status Fall Risk Sagastume Oriented t o own ability Sagastume Fall Risk Score 60 Sagastume Fall Risk High risk Immunizations Given and Recorded Vaccine Date Status Refusal Reason SARS-CoV-2 mRNA (arianan 5y-11y) 1 04/04/22 Re corded SARS-CoV-2 (COVID-19) mRNA BNT-162b2 vax 2 04/15/21 Recorded SARS-CoV-2 (COVID-19) mRNA BNT-162b2 vax 3 09/14/20 Recorded SARS-CoV-2 (COVID-19) mRNA BNT-162b2 vax 4 08/17/20 Recorded tetanus/diphtheria/pertuss, acel (Tdap) 02/27/21 R ecorded tetanus/diphtheria/pertuss, acel (Tdap) 08/05/18 R ecorded tetanus/diphtheria/pertuss, acel (Tdap) 06/23/04 R ecorded zoster vaccine, inactivated 05/23/19 Recorded pneumococcal 23-valent vaccine 06/02/15 Recorded pneumococcal 23-valent vaccine 5 05/18/98 Recorded tetanus toxoids-diphtheria, Td (Adult) 6 01/10/94 Recorded 1Result Comment: [facility] 2Result Comment: 2022-01-24: Historical information-source unspecified 3Result Comment: 2022-01-24: Historical information-source unspecified 4Result Comment: 2022-01-24: Historical information-source unspecified 5Result Comment: 2022-01-24: Historical information-source unspecified 6Result Comment: 2022-01-24: Historical information-source unspecified Medications albuterol 0.5% for nebulization Start: 09/23/24 8:45:00 AM EDT, 0.5 mL, NEB, q4h, PRN: wheezing Start Date: 09/23/24 Status: Ordered Repeat number: 1 aspirin 81 mg oral delayed release tablet Start: 09/23/24 8:45:00 AM EDT, 1 tab, PO, Daily Start Date: 09/23/24 Status: Ordered Repeat number: 1 Ativan 0.5 mg oral tablet Start: 09/23/24 8:45:00 AM EDT, 1 tab, PO, tid, PRN: anxiety Start Date: 09/23/24 Status: Ordered Repeat number: 1 calcium gluconate Start: 09/23/24 8:45:00 AM EDT, 2,000 mg =, IV, As indicated, PRN: see order comments Start Date: 09/23/24 Status: Ordered Repeat number: 1 Colace 100 mg oral capsule Start: 09/23/24 8:45:00 AM EDT, 1 cap, PO, bid Start Date: 09/23/24 Status: Ordered Repeat number: 1 Coreg 3.125 mg oral tablet Start: 09/23/24 8:45:00 AM EDT, 1 tab, PO, bid Start Date: 09/23/24 Status: Ordered Repeat number: 1 cyclobenzaprine 5 mg oral tablet Start: 09/23/24 8:45:00 AM EDT, 1 tab, PO, tid, PRN: spasms Start Date: 09/23/24 Status: Ordered Repeat number: 1 Dilaudid 0.2 mg/mL injectable solution Start: 09/23/24 8:45:00 AM EDT, 1 mL, IV Push, ONCE, Refills: 0, PRN: dressing changes Start Date: 09/23/24 Status: Ordered Repeat number: 1 Dulcolax Laxative (vegetable base) 10 mg rectal suppository Start: 09/23/24 8:45:00 AM EDT, 1 supp, IL, Daily Start Date: 09/23/24 Status: Ordered Repeat number: 1 Eliquis 5 mg oral tablet Start: 09/23/24 8:45:00 AM EDT, 1 tab, PO, bid Start Date: 09/23/24 Status: Ordered Repeat number: 1 ezetimibe 10 mg oral tablet Start: 07/01/24 10:26:00 AM EST, 1 tab, PO, Daily, Disp# 90 tab, Refills: 2, Pharmacy: [facility] [id number] Start Date: 07/01/24 Status: Ordered Quantity: 90.0 Unit: tab Repeat number: 1 fexofenadine Start: 12/20/21 10:08:00 AM EDT, 180 mg =, PO, Daily, will prn take BID Start Date: 12/20/21 Status: Ordered Repeat number: 1 finasteride 5 mg oral tablet Start: 09/23/24 8:45:00 AM EDT, 1 tab, PO, Daily Start Date: 09/23/24 Status: Ordered Repeat number: 1 fluticasone 50 mcg/inh nasal spray Start: 12/26/22 11:33:00 AM EDT, 1 spray, each nostril, Daily Start Date: 12/26/22 Status: Ordered Repeat number: 1 guaiFENesin 600 mg oral tablet, extended release Start: 09/23/24 8:45:00 AM EDT, 1 tab, PO, bid Start Date: 09/23/24 Status: Ordered Repeat number: 1 HumaLOG Sliding Scale Low Dose Range: SSI, injection, subQ, 09/16/24 7:30:00 AM EDT, 09/16/24 7:20:04 AM EDT, Estimated correction need for patients using total insulin daily dose between 31 and 60 units., 09/15/24 10:59:00 EDT Start Date: 09/16/24 Stop Date: 09/16/24 Status: Completed Repeat number: 1 HumaLOG Sliding Scale Low Dose Range: SSI, injection, subQ, 09/16/24 4:30:00 PM EDT, 09/16/24 4:26:08 PM EDT, Estimated correction need for patients using total insulin daily dose between 31 and 60 units., 09/15/24 10:59:00 EDT Start Date: 09/16/24 Stop Date: 09/16/24 Status: Completed Repeat number: 1 HumaLOG Sliding Scale Low Dose Range: SSI, injection, subQ, 09/17/24 11:30:00 AM EDT, 09/17/24 12:38:18 PM EDT, Estimated correction need for patients using total insulin daily dose between 31 and 60 units., 09/15/24 10:59:00 EDT Start Date: 09/17/24 Stop Date: 09/17/24 Status: Completed Repeat number: 1 ipratropium 21 mcg/inh (0.03%) nasal spray Start: 12/26/22 11:35:00 AM EDT, 2 spray, each nostril, tid, PRN: as needed for allergy symptoms Start Date: 12/26/22 Status: Ordered Repeat number: 1 ketoconazole 2% topical cream Start: 09/27/23 11:59:00 AM EDT, 1 appl, topical, bid, Disp# 30 g, Refills: 5, to right foot, Pharmacy: [facility]/pharmacy #[id number] Start Date: 09/27/23 Status: Ordered Quantity: 30.0 Unit: g Repeat number: 6 Indication: Tinea pedis loratadine 10 mg oral capsule Start: 06/20/23 11:22:00 AM EST, 1 cap, PO, Daily Start Date: 06/20/23 Status: Ordered Repeat number: 1 magnesium sulfate Start: 09/23/24 8:45:00 AM EDT, 2,000 mg =, IV, As indicated, PRN: see order comments Start Date: 09/23/24 Status: Ordered Repeat number: 1 magnesium sulfate Start: 09/23/24 8:45:00 AM EDT, 4,000 mg =, IV, As indicated, PRN: see order comments Start Date: 09/23/24 Status: Ordered Repeat number: 1 Milk of Magnesia Start: 09/23/24 8:45:00 AM EDT, 30 mL, PO, Daily Start Date: 09/23/24 Status: Ordered Repeat number: 1 MiraLax Start: 09/23/24 8:45:00 AM EDT, 17 g =, PO, Daily Start Date: 09/23/24 Status: Ordered Repeat number: 1 montelukast 10 mg oral tablet Start: 02/22/24 8:27:00 PM EDT, 1 tab, PO, qPM, Disp# 90 tab, Refills: 1, Pharmacy: [facility] [id number] Start Date: 02/22/24 Status: Ordered Quantity: 90.0 Unit: tab Repeat number: 1 oxyCODONE 10 mg oral tablet Start: 09/23/24 8:46:00 AM EDT, 10 mg =, PO, ONCE, Refills: 0, PRN: dressing changes Start Date: 09/23/24 Status: Ordered Repeat number: 1 oxyCODONE 10 mg oral tablet Start: 09/23/24 8:46:00 AM EDT, 10 mg =, PO, q4h, Refills: 0, PRN: pain - severe (7-10) Start Date: 09/23/24 Status: Ordered Repeat number: 1 oxyCODONE 5 mg oral tablet Start: 09/23/24 8:46:00 AM EDT, 5 mg =, PO, q4h, Refills: 0, PRN: pain - moderate (4-6) Start Date: 09/23/24 Status: Ordered Repeat number: 1 potassium chloride Start: 09/23/24 8:46:00 AM EDT, 20 mEq =, IV, As indicated, PRN: see order comments Start Date: 09/23/24 Status: Ordered Repeat number: 1 Protonix 40 mg oral delayed release tablet Start: 09/23/24 8:45:00 AM EDT, 1 tab, PO, Daily Start Date: 09/23/24 Status: Ordered Repeat number: 1 rosuvastatin 40 mg oral tablet Start: 09/23/24 8:45:00 AM EDT, 1 tab, PO, Daily Start Date: 09/23/24 Status: Ordered Repeat number: 1 simethicone 80 mg oral tablet, chewable Start: 09/23/24 8:46:00 AM EDT, 1.5 tab, PO, ac and hs, PRN: Abdominal bloating - gas pain Start Date: 09/23/24 Status: Ordered Repeat number: 1 sodium chloride nasal 0.65% spray ([place]) Start: 09/23/24 8:46:00 AM EDT, 1 spray, each nostril, q30min, PRN: Discomfort Start Date: 09/23/24 Status: Ordered Repeat number: 1 Tylenol 500 mg oral tablet Start: 09/23/24 8:45:00 AM EDT, 2 tab, PO, q6h, PRN: fever/mild pain (1-3) Start Date: 09/23/24 Status: Ordered Repeat number: 1 Vitamin D3 Start: 12/20/21 10:06:00 AM EDT, 50 mcg =, PO, Daily Start Date: 12/20/21 Status: Ordered Repeat number: 1 Zofran 2 mg/mL injectable solution Start: 09/23/24 8:45:00 AM EDT, 2 mL, IV Push, q6h, PRN: nausea and vomiting Start Date: 09/23/24 Status: Ordered Repeat number: 1 Mental Status 09/22/24 Primary Language Yoruba Problem List Condition Confirmation Course Effective Dates Status H ealth Status Informant Acute bronchitis Confirmed Active Acute conjunctivitis Confirmed Active Allergic rhinitis Confirmed Active Ascending aorta dilation Confirmed Active Benign essential HTN Confirmed Active BPH (benign prostatic hyperplasia) Confirmed Active CAD in [place] artery Confirmed Active DDD (degenerative disc disease), cervical Confirmed Active DDD (degenerative disc disease), lumbar Confirmed Active ED (erectile dysfunction) Confirmed Active Hemorrhoid Confirmed Active Hyperlipidemia LDL goal <70 Confirmed Active Groin pain, chronic, left Confirmed Active Lesion of liver Confirmed Active Lipoma of right thigh Confirmed Active Indeterminate pulmonary nodules Confirmed Active Pain of right calf Confirmed Active Annual physical exam Confirmed Active Benign lymphoid polyp of colon Confirmed Active Diagnosis Diagnosis Type Effective Dates Health Status Clinical Service Informant Aortic aneurysm Discharge Diagnosis 09/11/24 Non-Specified Lactic acidosis Discharge Diagnosis 09/11/24 Non-Specified Hypotension Discharge Diagnosis 09/11/24 Non-Specified S/P aortic dissection repair Discharge Diagnosis 09/11/24 Non-Specified Thrombocytopenia Discharge Diagnosis 09/11/24 Non-Specified Hyperglycemia Discharge Diagnosis 09/11/24 Non-Specified Right ventricular dysfunction Discharge Diagnosis 09/11/24 Non-Specified Acute blood loss as cause of postoperative anemia Discharge Diagnosis 09/11/24 Non-Specified Type A aortic dissection Discharge Diagnosis 09/11/24 Non-Specified Respiratory acidosis Discharge Diagnosis 09/12/24 Non-Specified Hypercarbia Discharge Diagnosis 09/12/24 Non-Specified Procedures Procedure Date Related Diagnosis Body Site Status Shave biopsy of skin 09/27/[address] of abdomen 1 04/09/23 Completed Computed tomography (CT) of liver with contrast 2 03/24/[address] of chest without contrast 3 12/14/21 Completed EMG - Electromyography 4 12/06/21 Completed Trigger finger of right hand [address] of cervical spine 6 05/10/20 Co mpleted Plain X-ray of right hand 7 01/23/20 Completed Plain X-ray of sacroiliac joint 8 01/23/20 Completed X-ray of lumbosacral spine 9 01/23/20 Completed TURP - Transurethral resecti on of prostate 2017 Completed Hemorrhoidectomy 2016 Complete d Colonoscopy 10/25/15 Completed Transurethral incision of bladder neck 2015 Completed Repair of inguinal hernia 2011 Completed Angioplasty 2010 Completed Tonsillotomy 1958 Completed Bunionectomy Completed CT of chest 10 Completed Excision of lipoma Comple stephani 11. Numerous hepatic lesions have not significantly changed as compared to the 03/24/2022 examination. The larger lesions represent hemangiomas. The smaller lesions also likely represent hemangiomas but are not definitively characterized. 2. No new or enlarging liver lesion seen. 3. Horseshoe kidney noting bilateral nephrolithiasis. 4. Cardiomegaly with advanced coronary artery atherosclerosis. 5. a 14mm lingular pulmonary nodule is unchanged. See report of chest CT. 6. Additional findings as above. 2numerous hepatic lesions, larger ones c/w hemangiomas, smaller ones more difficult to categorize, but likely hemangiomas; horseshoe kidney, several L calculi; no change in lower lung nodules 3few scattered low suspicion solid pulm nodules up to 4mm; subpleural/fissural nodule in lingula 1.2cm, no change from 2015; 1.8 X 0.9 cm nodulein ant mediastinum, nonenlarged lymph node vs thymic nodule; indeterminant scattered ill-defined hypodense hepatic lesions, up to 4cm; fusiform dilatation of ascending aorta 4.1 X 4.0 cm 4normal 5middle finger 6[facility] Impression: 1. No acute bony abnormality seen involving the cervical spine 2. Multilevel spondylotic change 7[facility] Impression: 1. No fracture 8[facility] Impression: 1. No radiographic evidence of sacroiliitis 9[facility] Impression: 1. No acute findings. Degenerative changes 10[facility] Impression: 1 No acute intrathoracic abnormality 2 Stable scattered low suspicion solid pulmonary nodules measuring up to 4 mm Follow-up guidelines provided below. 3 Subpleural/fissural nodule within the lingula measuring 1 2 cm is also unchanged. As previously stated, in retrospect this nodule was likely present dating back to the 2014 chest radiographs Based on stability a benign lesion is favored 4. Hepatic leions are redemonstrated, previously described as hemangiomata on the 03/24/2022 exam. Results Laboratory List Name Date Basic Metabolic Panel (BMP) 09/23/24 Complete Blood Count (CBC w Platelets) Magnesium Level 09/23/24 Basic Metabolic Panel (BMP) 09/22/24 Complete Blood Count (CBC w Platelets) Magnesium Level 09/22/24 Complete Blood Count (CBC w Platelets) Magnesium Level 09/21/24 Nephrology Panel 09/21/24 Partial Thromboplastin Time (PTT) 5 Added on Lab order 09/20/24 Glucose Meter (GLUCOSE METER) 09/20/24 Nephrology Panel 09/20/24 Partial Thromboplastin Time (PTT) 5 Nephrology Panel (NEPHROLOGY PANEL) 09/20 Glucose Meter (GLUCOSE METER) 09/19/24 Added on Lab order 09/19/24 Partial Thromboplastin Time (PTT) 5 Glucose Meter (GLUCOSE METER) 09/17/24 HIT PF4 IgG Antibody 09/17/24 Complete Blood Count w Differential (CBC w Platelets and Diff) 09/16/24 Hemoglobin A1C 09/16/24 ALT Level (ALT) 09/15/24 AST Level (AST) 09/15/24 Alkaline Phosphatase (ALKALINE PHOSPHATA SE) 09/15/24 Bilirubin, Direct (BILIRUBIN, DIRECT) 05/02 Bilirubin, Total (BILIRUBIN, TOTAL) 09/15 Protein, Total (PROTEIN) 09/15/24 Arterial Blood Gases w/ Hgb and O2 Sat ( ABGs, w/ Hgb and O2 Sat) 09/15/24 Arterial Blood Gases w/ Hgb and O2 Sat ( ABGs, w/ Hgb and O2 Sat) 09/14/24 ALT Level (ALT) 09/14/24 AST Level (AST) 09/14/24 Alkaline Phosphatase (ALKALINE PHOSPHATA SE) 09/14/24 Bilirubin, Direct (BILIRUBIN, DIRECT) 09/14/24 Bilirubin, Total (BILIRUBIN, TOTAL) Protein, Total (PROTEIN) 09/14/24 Venous Blood Gases w/ Hgb, O2Sat (VBG Ve nous Blood Gas with HGB and O2SAT) 09/14/24 Arterial Blood Gases w/ Hgb and O2 Sat ( ABGs, w/ Hgb and O2 Sat) 09/14/24 Lactic Acid Level, Whole Blood 09/14/24 Venous Blood Gases w/ Hgb, O2Sat (VBG Ve nous Blood Gas with HGB and O2SAT) 09/14/24 ALT Level (ALT) 09/14/24 AST Level (AST) 09/14/24 Alkaline Phosphatase (ALKALINE PHOSPHATA SE) 09/14/24 Bilirubin, Direct (BILIRUBIN, DIRECT) 09/14/24 Bilirubin, Total (BILIRUBIN, TOTAL) Protein, Total (PROTEIN) 09/14/24 Blood Type/Antibody Screen (for possible transfusion) (TYPE AND SCREEN) 09/14/24 Lactic Acid Level, Whole Blood 09/14/24 Venous Blood Gases w/ Hgb, O2Sat (VBG Ve nous Blood Gas with HGB and O2SAT) 09/14/24 Lactic Acid Level, Whole Blood 09/13/24 Calcium, Ionized (Ionized Calcium) 5 Arterial Blood Gases w/ Hgb and O2 Sat ( ABGs, w/ Hgb and O2 Sat) 09/12/24 Venous Blood Gases w/ Hgb, O2Sat (VBG Ve nous Blood Gas with HGB and O2SAT) 09/12/24 Prothrombin Time w/ INR (PT/INR) 09/12/24 Arterial Blood Gases w/ Hgb and O2 Sat ( ABGs, w/ Hgb and O2 Sat) 09/12/24 Venous Blood Gases w/ Hgb, O2Sat (VBG Ve nous Blood Gas with HGB and O2SAT) 09/12/24 Venous Blood Gases w/ Hgb, O2Sat (VBG Ve nous Blood Gas with HGB and O2SAT) 09/12/24 Arterial Blood Gases w/ Hgb and O2 Sat ( ABGs, w/ Hgb and O2 Sat) 09/12/24 Potassium Level, Whole Blood (K Level, W hole Blood) 09/12/24 MRSA Surveillance (Nasal Swab) 09/12/24 Prothrombin Time w/ INR (PT/INR) 09/12/24 Arterial Blood Gases w/ Hgb and O2 Sat ( ABGs, w/ Hgb and O2 Sat) 09/12/24 Arterial Blood Gases w/ Hgb and O2 Sat ( ABGs, w/ Hgb and O2 Sat) 09/11/24 Calcium, Ionized (Ionized Calcium) 5 Venous Blood Gases w/ Hgb, O2Sat (VBG Ve nous Blood Gas with HGB and O2SAT) 09/11/24 Prothrombin Time w/ INR (Protime/INR) 09/11/24 Fibrinogen 09/11/24 Calcium, Ionized 09/11/24 Fibrinogen 09/11/24 ACT, by IStat (OR) (ACT KAOLIN ISTAT (OR )) 09/11/24 IStat Testing, Arterial (OR) (I-STAT GUERRERO EL,ART(OR)) 09/11/24 ACT, by IStat (OR) (ACT KAOLIN ISTAT (OR )) 09/11/24 IStat Testing, Arterial (OR) (I-STAT GUERRERO EL,ART(OR)) 09/11/24 ACT, by IStat (OR) (ACT KAOLIN ISTAT (OR )) 09/11/24 IStat Testing, Arterial (OR) (I-STAT GUERRERO EL,ART(OR)) 09/11/24 Prepare Cryoprecipitate. 09/11/24 IStat Testing, Arterial (OR) (I-STAT GUERRERO EL,ART(OR)) 09/11/24 Prepare Cryoprecipitate. 09/11/24 Prepare Platelets. 09/11/24 IStat Testing, Venous (OR) (I-STAT PANEL ,ANGIE(OR)) 09/11/24 Blood Type (ABO/Rh) (ABO/RH) 09/11/24 Blood Type/Antibody Screen (for possible transfusion) (TYPE AND SCREEN) 09/11/24 Blood Type/Antibody Screen (for possible transfusion) (TYPE AND SCREEN) 09/11/24 Most recent to oldest [Reference Range]: 1 2 3 4 Hct, POC [38-51 %] 34 % *LOW* (09/11/24 8:32 PM) 34 % *LOW* (09/11/24 7:51 PM) 35 % *LOW* (09/11/24 6:45 PM) Hgb, POC [12-17 g/dL] 11.6 g/dL *LOW* (09/11/24 8:32 PM) 11.6 g/dL *LOW* (09/11/24 7:51 PM) 11.9 g/dL *LOW* (09/11/24 6:45 PM) ABO/Rh O POSITIVE (09/14/24 3:30 AM) O POSITIVE (09/11/24 1:21 PM) O POSITIVE (09/11/24 1:20 PM) Antibody Scr NEGATIVE (09/14/24 3:30 AM) NEGATIVE (09/11/24 1:20 PM) NOT DONE (09/11/24 1:10 PM) Expires at 0600AM on 09/17/2024 (09/14/24 3:30 AM) 09/14/2024 (09/11/24 1:20 PM) 09/14/2024 (09/11/24 1:10 PM) # Units 2 (09/14/24 3:30 AM) 10 (09/11/24 5:28 PM) 15 (09/11/24 4:00 PM) 2 (09/11/24 4:00 PM) R Number NRQ (09/14/24 3:30 AM) NRQ (09/11/24 1:20 PM) NRQ (09/11/24 1:10 PM) HIT PF4 IgG Antibody Semi-Quantitati ve [<0.399 OD] 0.142 OD 1 (09/17/24 11:08 AM) eGFR CKD-EPI [>60 mL/min/1.73 m2] >90 mL/min/1.73 m2 (09/23/24 4:27 AM) 78 mL/min/1.73 m2 (09/22/24 4:35 AM) 72 mL/min/1.73 m2 (09/21/24 3:56 AM) Base Deficit, POC [0-2 mmol/L] 1 mmol/L (09/11/24 8:32 PM) 1 mmol/L (09/11/24 7:51 PM) 4 mmol/L *HI* (09/11/24 6:45 PM) Base Deficit (v), POC [0-2 mmol/L] 3 mmol/L *HI* (09/11/24 3:15 PM) Blood Glucose [70-120 mg/dL] 131 mg/dL 2 *HI* (09/17/24 12:38 PM) 143 mg/dL 3 *HI* (09/16/24 4:25 PM) 131 mg/dL 4 *HI* (09/16/24 7:19 AM) Estimated Average Glucose 117 mg/dL (09/16/24 3:31 AM) SaO2(a), POC [95-98 %] 100 % *HI* (09/11/24 8:32 PM) 100 % *HI* (09/11/24 7:51 PM) 100 % *HI* (09/11/24 6:45 PM) SaO2(v), POC [20-90 %] 100 % *HI* (09/11/24 3:15 PM) Lactate, Whole Blood [0.6-1.8 mmol/L] 1.5 mmol/L (09/14/24 3:18 AM) 1.6 mmol/L (09/14/24 12:08 AM) 1.7 mmol/L (09/13/24 8:09 PM) Request of Physician CBC with Platelets (09/20/24 5:03 AM) CBC with platelets (09/19/24 4:45 AM) Action Taken YES (09/20/24 5:03 AM) YES (09/19/24 4:45 AM) FiO2 (a) ROOM AIR % (09/12/24 2:00 AM) 60 % (09/11/24 11:43 PM) FiO2 (v) 60 % (09/11/24 11:43 PM) O2 Flow (a) 3 L/min (09/15/24 3:08 AM) 4 L/min (09/14/24 3:16 PM) 4 L/min (09/14/24 3:18 AM) O2 Flow (v) 4 L/min (09/14/24 7:59 AM) 4 L/min (09/14/24 3:18 AM) 4 L/min (09/14/24 12:08 AM) Estimated CrCl 73.19 mL/min (09/23/24 5:17 AM) 63.24 mL/min (09/22/24 11:13 AM) 63.24 mL/min (09/22/24 5:23 AM) MPV [9.0-12.2 fL] 8.4 fL *LOW* (09/23/24 4:27 AM) 8.5 fL *LOW* (09/22/24 4:35 AM) 8.9 fL *LOW* (09/21/24 2:10 PM) Immature Gran% 3.0 % (09/16/24 6:36 PM) Neut% 73.7 % (09/16/24 6:36 PM) Lymph% 12.5 % (09/16/24 6:36 PM) Coos% 10.2 % (09/16/24 6:36 PM) Baso% 0.2 % (09/16/24 6:36 PM) Eos% 0.4 % (09/16/24 6:36 PM) Immat Gran, Abs [0-0.4 K/uL] 0.41 K/uL *HI* (09/16/24 6:36 PM) Neut, Abs [2.0-7.7 K/uL] 10.19 K/uL *HI* (09/16/24 6:36 PM) Lymph, Abs [1.0-3.4 K/uL] 1.73 K/uL (09/16/24 6:36 PM) Coos, Abs [0-1.0 K/uL] 1.41 K/uL *HI* (09/16/24 6:36 PM) Baso, Abs [0-0.1 K/uL] 0.03 K/uL (09/16/24 6:36 PM) Eos, Abs [0-0.5 K/uL] 0.05 K/uL (09/16/24 6:36 PM) Type of Diff: AUTO (09/16/24 6:36 PM) RDW [11.5-14.2 %] 16.5 % *HI* (09/23/24 4:27 AM) 16.3 % *HI* (09/22/24 4:35 AM) 16.0 % *HI* (09/21/24 2:10 PM) Base Deficit 3.9 mmol/L (09/12/24 8:22 PM) 1.5 mmol/L (09/12/24 3:58 PM) 4.5 mmol/L (09/12/24 11:56 AM) Base Defic(v) 1.2 mmol/L (09/12/24 8:22 PM) 1.6 mmol/L 5 (09/12/24 3:58 PM) 4.3 mmol/L (09/12/24 11:56 AM) K, wb [3.5-5.0 mmol/L] 4.0 mmol/L (09/12/24 8:13 AM) B Comments CROSSMATCHED WITH ACC B60018 (09/11/24 1:10 PM) pH (a), POC [7.35-7.45 unit] 7.329 unit *LOW* (09/11/24 8:32 PM) 7.321 unit *LOW* (09/11/24 7:51 PM) 7.259 unit *LOW* (09/11/24 6:45 PM) pCO2 (a), POC [35-45 mmHg] 49.1 mmHg *HI* (09/11/24 8:32 PM) 49.9 mmHg *HI* (09/11/24 7:51 PM) 51.6 mmHg *HI* (09/11/24 6:45 PM) pO2 (a), POC [80-105 mmHg] 315 mmHg *HI* (09/11/24 8:32 PM) 365 mmHg *HI* (09/11/24 7:51 PM) 465 mmHg *HI* (09/11/24 6:45 PM) Base XS(a), POC [0-3 mmol/L] 0 mmol/L (09/11/24 4:12 PM) HCO3(a), POC [22-26 mmol/L] 25.8 mmol/L (09/11/24 8:32 PM) 25.8 mmol/L (09/11/24 7:51 PM) 23.1 mmol/L (09/11/24 6:45 PM) Ion Ca(wb), POC [1.12-1.32 mmol/L] 1.16 mmol/L (09/11/24 8:32 PM) 1.17 mmol/L (09/11/24 7:51 PM) 1.03 mmol/L *LOW* (09/11/24 6:45 PM) Na (wb), POC [138-146 mmol/L] 141 mmol/L (09/11/24 8:32 PM) 142 mmol/L (09/11/24 7:51 PM) 142 mmol/L (09/11/24 6:45 PM) K (wb), POC [3.5-4.9 mmol/L] 4.8 mmol/L (09/11/24 8:32 PM) 4.6 mmol/L (09/11/24 7:51 PM) 3.7 mmol/L (09/11/24 6:45 PM) pH (v), POC [7.31-7.41 unit] 7.487 unit *HI* (09/11/24 3:15 PM) pCO2 (v), POC [41-51 mmHg] 26.9 mmHg *LOW* (09/11/24 3:15 PM) pO2 (v), POC [15-60 mmHg] 186 mmHg *HI* (09/11/24 3:15 PM) HCO3(v), POC [23-28 mmol/L] 23.4 mmol/L (09/11/24 3:15 PM) Component RED CELLS (09/14/24 3:30 AM) CRYOPRECIPITATE (09/11/24 5:28 PM) CRYOPRECIPITATE (09/11/24 4:00 PM) PLATELETS (09/11/24 4:00 PM) MRSA Surveillance, on Admission [MSND] MRSA NOT detected (09/12/24 5:46 AM) Anion Gap [5-14 mmol/L] 10 mmol/L (09/23/24 4:27 AM) 10 mmol/L (09/22/24 4:35 AM) 6 mmol/L (09/21/24 3:56 AM) Hgb(a) [12.0-18.0 g/dL] 7.7 g/dL *LOW* (09/15/24 3:08 AM) 9.0 g/dL *LOW* (09/14/24 3:16 PM) 9.0 g/dL *LOW* (09/14/24 3:18 AM) Alb [3.5-5.2 g/dL] 3.1 g/dL *LOW* (09/21/24 3:56 AM) Lab orders combined with other orders received on the same specimen. g/dL 6 (09/20/24 5:02 AM) 3.1 g/dL *LOW* (09/20/24 5:01 AM) Alk Phos [40-130 unit/L] 132 unit/L 7 *HI* (09/15/24 3:09 AM) 89 unit/L 8 (09/14/24 3:17 PM) 65 unit/L 9 (09/14/24 3:44 AM) ALT [0-41 unit/L] 248 unit/L *HI* (09/15/24 3:09 AM) 192 unit/L *HI* (09/14/24 3:17 PM) 130 unit/L *HI* (09/14/24 3:44 AM) AST [0-40 unit/L] 229 unit/L *HI* (09/15/24 3:09 AM) 189 unit/L *HI* (09/14/24 3:17 PM) 168 unit/L *HI* (09/14/24 3:44 AM) Base XS(a) 3.9 mmol/L (09/15/24 3:08 AM) 2.6 mmol/L (09/14/24 3:16 PM) 2.6 mmol/L (09/14/24 3:18 AM) BUN [6-23 mg/dL] 24 mg/dL *HI* (09/23/24 4:27 AM) 24 mg/dL *HI* (09/22/24 4:35 AM) 29 mg/dL *HI* (09/21/24 3:56 AM) Ca [8.4-10.2 mg/dL] 9.5 mg/dL (09/23/24 4:27 AM) 9.2 mg/dL (09/22/24 4:35 AM) 9.0 mg/dL (09/21/24 3:56 AM) Ion Ca [1.15-1.27 mmol/L] 1.22 mmol/L (09/12/24 8:22 PM) 1.24 mmol/L (09/11/24 11:43 PM) 1.09 mmol/L *LOW* (09/11/24 8:49 PM) Cl- [98-107 mmol/L] 95 mmol/L *LOW* (09/23/24 4:27 AM) 90 mmol/L *LOW* (09/22/24 4:35 AM) 92 mmol/L *LOW* (09/21/24 3:56 AM) HCO3 [22-29 mmol/L] 29 mmol/L (09/23/24 4:27 AM) 29 mmol/L (09/22/24 4:35 AM) 32 mmol/L *HI* (09/21/24 3:56 AM) Cret [0.70-1.30 mg/dL] 0.89 mg/dL (09/23/24 4:27 AM) 1.03 mg/dL (09/22/24 4:35 AM) 1.10 mg/dL (09/21/24 3:56 AM) D Bili [<0.2 mg/dL] 0.2 mg/dL *HI* (09/15/24 3:09 AM) 0.2 mg/dL *HI* (09/14/24 3:17 PM) 0.2 mg/dL *HI* (09/14/24 3:44 AM) ACT (Kaolin), POC [74-137 seconds] 210 seconds *HI* (09/11/24 8:34 PM) 227 seconds *HI* (09/11/24 7:53 PM) 216 seconds *HI* (09/11/24 7:26 PM) Fibr [208-435 mg/dL] 278 mg/dL (09/11/24 9:53 PM) 280 mg/dL (09/11/24 8:49 PM) HbA1c [<5.7 %] 5.7 % 10 *HI* (09/16/24 3:31 AM) Glu [74-109 mg/dL] 122 mg/dL 11 *HI* (09/23/24 4:27 AM) 129 mg/dL 12 *HI* (09/22/24 4:35 AM) 136 mg/dL 13 *HI* (09/21/24 3:56 AM) Gluc Meter [74-109 mg/dL] 129 mg/dL *HI* (09/20/24 6:53 AM) 128 mg/dL *HI* (09/19/24 9:17 PM) 142 mg/dL *HI* (09/17/24 5:29 PM) HCO3(a) [21-28 mmol/L] 26.9 mmol/L (09/15/24 3:08 AM) 25.7 mmol/L (09/14/24 3:16 PM) 26.1 mmol/L (09/14/24 3:18 AM) Hct [39-48 %] 23.8 % *LOW* (09/23/24 4:27 AM) 22.8 % *LOW* (09/22/24 4:35 AM) 22.2 % *LOW* (09/21/24 2:10 PM) Hgb [13.0-17.0 g/dL] 7.5 g/dL *LOW* (09/23/24 4:27 AM) 7.2 g/dL *LOW* (09/22/24 4:35 AM) 7.2 g/dL *LOW* (09/21/24 2:10 PM) INR [0.9-1.1] 1.3 14 *HI* (09/12/24 3:59 PM) 1.2 15 *HI* (09/12/24 3:11 AM) 1.3 16 *HI* (09/11/24 9:53 PM) K [3.5-5.1 mmol/L] 4.5 mmol/L (09/23/24 4:27 AM) 4.0 mmol/L (09/22/24 4:35 AM) 4.2 mmol/L (09/21/24 3:56 AM) MCH [28-33 pg] 30.7 pg (09/23/24 4:27 AM) 30.4 pg (09/22/24 4:35 AM) 31.4 pg (09/21/24 2:10 PM) MCHC [32-36 g/dL] 31.5 g/dL *LOW* (09/23/24 4:27 AM) 31.6 g/dL *LOW* (09/22/24 4:35 AM) 32.4 g/dL (09/21/24 2:10 PM) MCV [81-96 fL] 97.5 fL *HI* (09/23/24 4:27 AM) 96.2 fL *HI* (09/22/24 4:35 AM) 96.9 fL *HI* (09/21/24 2:10 PM) Mg [1.6-2.6 mg/dL] 2.3 mg/dL (09/23/24 4:27 AM) 2.3 mg/dL (09/22/24 4:35 AM) 2.3 mg/dL (09/21/24 3:56 AM) Na [136-145 mmol/L] 134 mmol/L *LOW* (09/23/24 4:27 AM) 129 mmol/L *LOW* (09/22/24 4:35 AM) 130 mmol/L *LOW* (09/21/24 3:56 AM) SaO2(a) [95.0-98.0 %] 98.7 % *HI* (09/15/24 3:08 AM) 97.9 % (09/14/24 3:16 PM) 97.9 % (09/14/24 3:18 AM) pCO2(a) [35-48 mmHg] 33.0 mmHg *LOW* (09/15/24 3:08 AM) 33.0 mmHg *LOW* (09/14/24 3:16 PM) 35.0 mmHg (09/14/24 3:18 AM) pH(a) [7.35-7.45 unit] 7.520 unit *HI* (09/15/24 3:08 AM) 7.500 unit *HI* (09/14/24 3:16 PM) 7.480 unit *HI* (09/14/24 3:18 AM) PO4 [2.5-4.5 mg/dL] 2.2 mg/dL *LOW* (09/21/24 3:56 AM) Lab orders combined with other orders received on the same specimen. mg/dL 17 (09/20/24 5:02 AM) 1.8 mg/dL *LOW* (09/20/24 5:01 AM) Plts [150-350 K/uL] 326 K/uL (09/23/24 4:27 AM) 309 K/uL (09/22/24 4:35 AM) 305 K/uL (09/21/24 2:10 PM) pO2(a) [83-108 mmHg] 94.0 mmHg (09/15/24 3:08 AM) 67.0 mmHg *LOW* (09/14/24 3:16 PM) 83.0 mmHg (09/14/24 3:18 AM) PT [12.0-14.2 seconds] 16.4 seconds *HI* (09/12/24 3:59 PM) 15.3 seconds *HI* (09/12/24 3:11 AM) 16.1 seconds *HI* (09/11/24 9:53 PM) PTT [23-35 seconds] 41 seconds 18 *HI* (09/21/24 3:56 AM) 59 seconds 19 *HI* (09/20/24 5:01 AM) 66 seconds 20 *HI* (09/19/24 4:45 AM) RBC [4.40-5.60 M/uL] 2.44 M/uL *LOW* (09/23/24 4:27 AM) 2.37 M/uL *LOW* (09/22/24 4:35 AM) 2.29 M/uL *LOW* (09/21/24 2:10 PM) T Bili [0.0-1.2 mg/dL] 0.5 mg/dL (09/15/24 3:09 AM) 0.6 mg/dL (09/14/24 3:17 PM) 0.5 mg/dL (09/14/24 3:44 AM) Temp(a) 36.9 C (09/15/24 3:08 AM) 36.9 C (09/14/24 3:16 PM) 36.8 C (09/14/24 3:18 AM) Prot [6.4-8.3 g/dL] 5.2 g/dL *LOW* (09/15/24 3:09 AM) 5.0 g/dL *LOW* (09/14/24 3:17 PM) 4.8 g/dL *LOW* (09/14/24 3:44 AM) Temp(v) 36.5 C (09/14/24 7:59 AM) 36.8 C (09/14/24 3:18 AM) 36.8 C (09/14/24 12:08 AM) Base XS(v) 0.1 mmol/L (09/14/24 7:59 AM) 4.0 mmol/L (09/14/24 3:18 AM) 3.8 mmol/L (09/14/24 12:08 AM) HCO3(v) [24-28 mmol/L] 24.7 mmol/L (09/14/24 7:59 AM) 29.2 mmol/L *HI* (09/14/24 3:18 AM) 29.1 mmol/L *HI* (09/14/24 12:08 AM) Hgb(v) [12.0-18.0 g/dL] 8.4 g/dL *LOW* (09/14/24 7:59 AM) 9.1 g/dL *LOW* (09/14/24 3:18 AM) 8.9 g/dL *LOW* (09/14/24 12:08 AM) SaO2(v) 38.4 % (09/14/24 7:59 AM) 56.4 % (09/14/24 3:18 AM) 60.1 % (09/14/24 12:08 AM) pCO2(v) [41-51 mmHg] 39.0 mmHg *LOW* (09/14/24 7:59 AM) 46.0 mmHg (09/14/24 3:18 AM) 47.0 mmHg (09/14/24 12:08 AM) pH(v) [7.33-7.43 unit] 7.410 unit (09/14/24 7:59 AM) 7.410 unit (09/14/24 3:18 AM) 7.400 unit (09/14/24 12:08 AM) pO2(v) 24.0 mmHg (09/14/24 7:59 AM) 32.0 mmHg (09/14/24 3:18 AM) 32.0 mmHg (09/14/24 12:08 AM) WBC [4.0-10.4 K/uL] 16.59 K/uL *HI* (09/23/24 4:27 AM) 18.55 K/uL *HI* (09/22/24 4:35 AM) 17.52 K/uL *HI* (09/21/24 2:10 PM) 1Result Comment: Results <0.399 have a good negative predictive value for HIT with very rare false negative results. Positive ERICKSON OD results (>0.4) are sensitive but not veryspecific for HIT. Higher optical density (OD) values in the IgG ERICKSON test correlate wtih a higher likelihood of positivity in platelet activation assays, suchas the serotonin release assay (JUANA), and an increased likelihood of clinical HIT. For further testing on positive results, kindly call [phone] 2Result Comment: Performed at: [address] [place] [address] 3Result Comment: Performed at: [address] [place] [address] 4Result Comment: Performed at: [address] [place] [address] 5Result Comment: AIR BUBBLE IN SAMPLE; QUESTIONABLE RESULTS 6Result Comment: REQUEST CREDITED 7Result Comment: Low levels of ALKP may indicate a deficiency in zinc, magnesium, or malnutritionbutcan also be an indicator of a rare genetic disease hypophosphatasia (HPP). 8Result Comment: Low levels of ALKP may indicate a deficiency in zinc, magnesium, or malnutritionbutcan also be an indicator of a rare genetic disease hypophosphatasia (HPP). 9Result Comment: Low levels of ALKP may indicate a deficiency in zinc, magnesium, or malnutritionbutcan also be an indicator of a rare genetic disease hypophosphatasia (HPP). 10Result Comment: ADA Recommended Zearing Reference Range: Normal: <5.7% Prediabetes: 5.7-6.4% Diabetes: >6.4% Hb A1c results in patients with severe anemia or recent RBC transfusion are unreliable and do not represent the patient glycemic control. 11Result Comment: ADA recommendation for FASTING Serum/Plasma Glucose: Normal: 70-100 mg/dL Prediabetes: 100-125 mg/dL Diabetes: 126 mg/dL or higher 12Result Comment: ADA recommendation for FASTING Serum/Plasma Glucose: Normal: 70-100 mg/dL Prediabetes: 100-125 mg/dL Diabetes: 126 mg/dL or higher 13Result Comment: ADA recommendation for FASTING Serum/Plasma Glucose: Normal: 70-100 mg/dL Prediabetes: 100-125 mg/dL Diabetes: 126 mg/dL or higher 14Result Comment: Suggested therapeutic range for low-intensity Coumadin therapy for venous thromboembolism is INR 2.0-3.0 (ex: atrial fibrillation, history of TIA/stroke). For high risk patients, the suggested therapeutic range is INR 2.5-3.5 (ex: mechanical prosthetic valves). 15Result Comment: Suggested therapeutic range for low-intensity Coumadin therapy for venous thromboembolism is INR 2.0-3.0 (ex: atrial fibrillation, history of TIA/stroke). For high risk patients, the suggested therapeutic range is INR 2.5-3.5 (ex: mechanical prosthetic valves). 16Result Comment: Suggested therapeutic range for low-intensity Coumadin therapy for venous thromboembolism is INR 2.0-3.0 (ex: atrial fibrillation, history of TIA/stroke). For high risk patients, the suggested therapeutic range is INR 2.5-3.5 (ex: mechanical prosthetic valves). 17Result Comment: REQUEST CREDITED 18Result Comment: Heparin therapeutic range for Anti XA Activity from 0.3 to 0.7 IU/mL is 65-105 seconds. 19Result Comment: Heparin therapeutic range for Anti XA Activity from 0.3 to 0.7 IU/mL is 65-105 seconds. 20Result Comment: Heparin therapeutic range for Anti XA Activity from 0.3 to 0.7 IU/mL is 65-105 seconds. Radiology Reports (Most Recent Ten) * Exam Date Time Procedure Performing Provider Status 09/22/24 6:12 AM XR Chest 1 View Tabitha Viera; Ana islas Notes: (XR Chest 1 View) Reason For Exam: s/p aortic dissection XR Chest 1 View EXAMINATION: XR Chest 1 View CLINICAL HISTORY: s/p aortic dissection COMPARISON: 09/17/2024 FINDINGS: Intact midline sternotomy wires. Bilateral small pleural effusions with adjacent atelectasis. No pneumothorax. Mild interstitial pulmonary opacities. Unchanged moderate cardiomegaly. There are atherosclerotic calcifications of the aorta. The mediastinal silhouette is unchanged. Slightly enlarged central pulmonary vascularity. Unchanged osseous structures. IMPRESSION: 1. Mild pulmonary vascular congestion and unchanged small bilateral pleural effusions with adjacentatelectasis. 2. Stable moderate cardiomegaly. 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 CTA of the abdomen with intravenous contrast. Coronal, sagittal, 3-D MIP reformats. CONTRAST: Contrast Type (IV): Omnipaque 350 Contrast Volume (IV) in ml: 100.00 FINDINGS: CTA: AORTIC MEASUREMENTS: Annulus: 24 mm Sinus of Valsalva: 40 mm Sinotubular junction: 34 bone Maximum ascending diameter: 33 mm (repaired, opacified portion) Maximum descending diameter: 25 mm (opacified true lumen) AORTA: Status post aortic arch replacement with valve resuspension. Residual dissection flap withinthe aortic root terminating at the sinotubular junction. Normal caliber of the ascending aortic replacement. Circumferential periaortic hematoma surrounding the ascending aorta from the sinotubular junction to the proximal arch. Hematoma measures up to 3.5 cm in thickness with a few foci of intermixed gas. Arch dissection flap originates at the origin of the innominate artery. Dissection extends into theinnominate and bilateral proximal common carotid arteries. Moderate innominate and severe bilateralcommon carotid artery narrowing of the true lumen. Dissection extends throughout the visualized distal common carotid arteries and terminates at the origin of the right subclavian artery. No involvement of the left subclavian artery. Dissection extends throughout the thoracic and abdominal aorta to the level of the left external iliac artery as well as the proximal left internal iliac artery. Celiac, superior mesenteric, right renal and inferior mesenteric arteries arise from the true lumen and are patent. Left renal artery arises from the false lumen. Postsurgical changes of a femorofemoral bypass with normal opacification of the bypass graft. Normal caliber and opacification of the femoral trifurcations. Normal caliber and opacification of the right iliac arteries. CHEST: LUNGS/PLEURA: Moderate bilateral pleural effusions with overlying lower lobe compressive atelectasis. No pneumothorax. CENTRAL AIRWAYS: Dependent mucoid debris within the trachea. MEDIASTINUM/LYMPH NODES: Periaortic hematoma as above. No central pulmonary artery filling defect. 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 Lumen with minimal proximal opacification. Severe coronary artery calcification of the left anterior descending and circumflex arteries. No central pulmonary artery filling defect. Mild right atrial dilation. Reversal of the RV/LV ratio. CHEST WALL: Mild anasarca. Postsurgical changes of a median sternotomy. ABDOMEN/PELVIS: LIVER: Ill-defined hypodensities in the central and medial left hepatic lobe. These regions do not demonstrate simple fluid attenuation and are ultimately indeterminate. GALLBLADDER/DUCTS: Unremarkable SPLEEN: Unremarkable PANCREAS: Unremarkable ADRENALS: Unremarkable KIDNEYS/URETERS: Horseshoe kidney. Geographic hypodensity of the lateral and inferior left kidney in keeping with acute renal infarct, region of hyperperfusion is improved from preoperative CTA. Leftnephrolithiasis. No hydronephrosis. BLADDER: Distended. Intraluminal gas is consistent with recent Cardona. REPRODUCTIVE: Partially marked scrotal edema and/or hydroceles. BOWEL: No obstruction. No focal mural thickening. PERITONEUM/RETROPERITONEUM: No free fluid or free air. LYMPH NODES: No lymphadenopathy. VESSELS: As above. BODY WALL: Confluent anasarca. BONES: Median sternotomy. No acute osseous abnormality. IMPRESSION: 1. Postsurgical changes of a aortic arch replacement. Circumferential periaortic hematoma surrounding the ascending aorta measuring up to 3.5 cm in thickness. No evidence of extravasation from the graft replacement. 2. Residual dissection flap within the aortic root. Right coronary artery appears to arise from theaortic root false lumen with minimal opacification of the proximal artery. Severe calcification of the left coronary artery. 3. Arch dissection flap now originates at the innominate artery origin with extension into the innominate and bilateral common carotid arteries. Moderate innominate and severe proximal bilateral common carotid artery true luminal narrowing. 4. Dissection extends throughout the thoracic and abdominal aorta to the level of the distal left external iliac artery. 5. Left renal artery arises from the false lumen with a developing left renal infarct. Region of infarct/hypoperfusion appears improved/decreased from preoperative CTA. Horseshoe kidney morphology. 6. Patent bilateral femorofemoral bypass graft and visualized proximal femoral arteries. 7. Moderate bilateral simple pleural effusions with lower lobe compressive atelectasis. 8. Anasarca and marked scrotal edema/hydroceles. Findings discussed with JOSSE Farah at 09/17/2024 1:50 PM EDT via telephone. [place] Act 112: This study does not meet the requirements of [place] Act 112. 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 CTA of the abdomen with intravenous contrast. Coronal, sagittal, 3-D MIP reformats. CONTRAST: Contrast Type (IV): Omnipaque 350 Contrast Volume (IV) in ml: 100.00 FINDINGS: CTA: AORTIC MEASUREMENTS: Annulus: 24 mm Sinus of Valsalva: 40 mm Sinotubular junction: 34 bone Maximum ascending diameter: 33 mm (repaired, opacified portion) Maximum descending diameter: 25 mm (opacified true lumen) AORTA: Status post aortic arch replacement with valve resuspension. Residual dissection flap withinthe aortic root terminating at the sinotubular junction. Normal caliber of the ascending aortic replacement. Circumferential periaortic hematoma surrounding the ascending aorta from the sinotubular junction to the proximal arch. Hematoma measures up to 3.5 cm in thickness with a few foci of intermixed gas. Arch dissection flap originates at the origin of the innominate artery. Dissection extends into theinnominate and bilateral proximal common carotid arteries. Moderate innominate and severe bilateralcommon carotid artery narrowing of the true lumen. Dissection extends throughout the visualized distal common carotid arteries and terminates at the origin of the right subclavian artery. No involvement of the left subclavian artery. Dissection extends throughout the thoracic and abdominal aorta to the level of the left external iliac artery as well as the proximal left internal iliac artery. Celiac, superior mesenteric, right renal and inferior mesenteric arteries arise from the true lumen and are patent. Left renal artery arises from the false lumen. Postsurgical changes of a femorofemoral bypass with normal opacification of the bypass graft. Normal caliber and opacification of the femoral trifurcations. Normal caliber and opacification of the right iliac arteries. CHEST: LUNGS/PLEURA: Moderate bilateral pleural effusions with overlying lower lobe compressive atelectasis. No pneumothorax. CENTRAL AIRWAYS: Dependent mucoid debris within the trachea. MEDIASTINUM/LYMPH NODES: Periaortic hematoma as above. No central pulmonary artery filling defect. 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 Lumen with minimal proximal opacification. Severe coronary artery calcification of the left anterior descending and circumflex arteries. No central pulmonary artery filling defect. Mild right atrial dilation. Reversal of the RV/LV ratio. CHEST WALL: Mild anasarca. Postsurgical changes of a median sternotomy. ABDOMEN/PELVIS: LIVER: Ill-defined hypodensities in the central and medial left hepatic lobe. These regions do not demonstrate simple fluid attenuation and are ultimately indeterminate. GALLBLADDER/DUCTS: Unremarkable SPLEEN: Unremarkable PANCREAS: Unremarkable ADRENALS: Unremarkable KIDNEYS/URETERS: Horseshoe kidney. Geographic hypodensity of the lateral and inferior left kidney in keeping with acute renal infarct, region of hyperperfusion is improved from preoperative CTA. Leftnephrolithiasis. No hydronephrosis. BLADDER: Distended. Intraluminal gas is consistent with recent Cardona. REPRODUCTIVE: Partially marked scrotal edema and/or hydroceles. BOWEL: No obstruction. No focal mural thickening. PERITONEUM/RETROPERITONEUM: No free fluid or free air. LYMPH NODES: No lymphadenopathy. VESSELS: As above. BODY WALL: Confluent anasarca. BONES: Median sternotomy. No acute osseous abnormality. IMPRESSION: 1. Postsurgical changes of a aortic arch replacement. Circumferential periaortic hematoma surrounding the ascending aorta measuring up to 3.5 cm in thickness. No evidence of extravasation from the graft replacement. 2. Residual dissection flap within the aortic root. Right coronary artery appears to arise from theaortic root false lumen with minimal opacification of the proximal artery. Severe calcification of the left coronary artery. 3. Arch dissection flap now originates at the innominate artery origin with extension into the innominate and bilateral common carotid arteries. Moderate innominate and severe proximal bilateral common carotid artery true luminal narrowing. 4. Dissection extends throughout the thoracic and abdominal aorta to the level of the distal left external iliac artery. 5. Left renal artery arises from the false lumen with a developing left renal infarct. Region of infarct/hypoperfusion appears improved/decreased from preoperative CTA. Horseshoe kidney morphology. 6. Patent bilateral femorofemoral bypass graft and visualized proximal femoral arteries. 7. Moderate bilateral simple pleural effusions with lower lobe compressive atelectasis. 8. Anasarca and marked scrotal edema/hydroceles. Findings discussed with JOSSE Farah at 09/17/2024 1:50 PM EDT via telephone. [place] 112: This study does not meet the requirements of [place] 112. Workstation ID: [id number] Final Dictated by:MD Mcdaniel Luke A Dictated DT/TM:09/17/2024 1:55 Signed by:MD Mcdaniel Luke A Signed (Electronic Signature):09/17/2024 1:53 p * Exam Date Time Procedure Performing Provider Status 09/17/24 7:04 AM XR Chest 1 View Clementina Jackson Notes: (XR Chest 1 View) Reason For Exam: s/p OHS, postop cough with incisional/rib pain XR Chest 1 View EXAMINATION: XR Chest 1 View CLINICAL HISTORY: s/p OHS, postop cough with incisional/rib pain COMPARISON: Chest radiograph 09/16/2024. FINDINGS: Upright AP chest. Right IJ approach central catheter tip lower SVC. Mediastinal surgical clips. Intact and aligned sternotomy wires. Rotated left. Partially obscured cardiac silhouette, though with improved visualization from prior. Improved lung aeration with decreased bibasilar atelectasis. Decreased small pleural effusions. No pneumothorax. Unchanged osseous structures. IMPRESSION: Improved small pleural effusions and bibasilar atelectasis. Workstation ID: [id number] Final Dictated by:DO Barone Matthew D Dictated DT/TM:09/17/2024 8:47 Signed by:DO Barone Matthew D Signed (Electronic Signature):09/17/2024 8:46 a * Exam Date Time Procedure Performing Provider Status 09/16/24 1:04 PM XR Chest 2 Views Eyal Scanlon; Final Notes: (XR Chest 2 Views) Reason For Exam: sp ohs, ct removal XR Chest 2 Views EXAMINATION: XR Chest 2 Views CLINICAL HISTORY: sp ohs, ct removal COMPARISON: Chest radiograph 09/15/2024. FINDINGS: Upright AP chest. Right IJ approach central venous catheter tip lower SVC. Unchanged sternotomy wires accounting for leftward rotation on frontal image. Partially obscured cardiac silhouette by bibasilar atelectasis adjacent small pleural effusions. Increased size of effusions from prior radiograph. Normal pulmonary vasculature. No pneumothorax. Trace residual retrosternal postoperative air and presternal soft tissue emphysema. IMPRESSION: Increased small pleural effusions. Associated bibasilar atelectasis. Workstation ID: [id number] Final Dictated by:DO Barone Matthew D Dictated DT/TM:09/16/2024 1:10 Signed by:DO Barone Matthew D Signed (Electronic Signature):09/16/2024 1:09 p * Exam Date Time Procedure Performing Provider Status 09/15/24 5:30 AM XR Chest 1 View Alexia Ardon; Eric fontenot Notes: (XR Chest 1 View) Reason For Exam: Atelectasis XR Chest 1 View EXAMINATION: XR Chest 1 View CLINICAL HISTORY: Atelectasis COMPARISON: 09/14/2024 FINDINGS: AP radiographs of the chest. Right IJ central venous catheter with tip in the low SVC. Median sternotomy wires. Stable enlargement of the cardiomediastinal silhouette. Stable small right-sided and trace left-sided pleural effusion. Stable mild bibasilar atelectasis. Increasing perihilar opacities with interstitial markings. Biapical scarring. Unchanged osseous structures. IMPRESSION: 1. Perihilar and interstitial opacities, which may represent developing pulmonary edema. 2. Stable small right and trace left pleural effusions with adjacent atelectasis. Dr. Abhijeet Burgess is the dictating resident. Finalized reports status indicates that the attending has reviewed the images and report, and agrees with the interpretation. Preliminary report status should be regarded as NOT interpreted by the attending radiologist. Workstation ID: [id number] Final Dictated by:MD Burgess Aroh Jamanadas Dictated DT/TM:09/15/2024 10:12 Resident:MD Jenifer, Abhijeet Coley Signed by:MD Ankit, Bibi Islas Signed (Electronic Signature):09/15/2024 10:11 * Exam Date Time Procedure Performing Provider Status 09/14/24 7:15 AM XR Chest 1 View Alexia Ardon; Ana islas Notes: (XR Chest 1 View) Reason For Exam: Atelectasis XR Chest 1 View EXAMINATION: XR Chest 1 View CLINICAL HISTORY: Atelectasis COMPARISON: Prior study dated 09/13/2024 FINDINGS: AP supine radiograph of the chest. Sternotomy wires. Right IJ central venous catheter with tip in the low SVC. Normal cardiomediastinal silhouette. Bibasilar atelectasis. Small bilateral pleural effusions. No pneumothorax. Unchanged osseous structures. IMPRESSION: Bibasilar atelectasis and small bilateral pleural effusions Workstation ID: [id number] Final Dictated by:MD Mayen Eric A Dictated DT/TM:09/14/2024 10:06 Signed by:MD Mayen Eric A Signed (Electronic Signature):09/14/2024 10:05 * Exam Date Time Procedure Performing Provider Status 09/13/24 4:38 PM XR Chest 1 View Courtney Tucker; Final Notes: (XR Chest 1 View) Reason For Exam: s/p d/c Chest Tube XR Chest 1 View EXAMINATION: XR Chest 1 View CLINICAL HISTORY: S/P D/C Chest Tube COMPARISON: Prior study dated 09/13/2024 FINDINGS: AP upright portable radiograph of the chest. Sternotomy wires. Right IJ central venous catheter with tip in the low SVC. Normal cardiomediastinal silhouette. Bibasilar atelectasis. Small right pleural effusion. No pneumothorax. Unchanged osseous structures. IMPRESSION: Bibasilar atelectasis, mildly increased Workstation ID: [id number] Final Dictated by:MD Mayen Eric A Dictated DT/TM:09/13/2024 4:49 Signed by:MD Mayen Eric A Signed (Electronic Signature):09/13/2024 4:48 p * Exam Date Time Procedure Performing Provider Status 09/13/24 7:00 AM XR Chest 1 View Blayne Andrade; Eric fontenot Notes: (XR Chest 1 View) Reason For Exam: s/p Ao arch replacement XR Chest 1 View EXAMINATION: XR Chest 1 View CLINICAL HISTORY: Status post aortic arch replacement COMPARISON: Prior study dated 09/12/2024 FINDINGS: AP 80 degrees semierect portable radiograph of the chest. Postoperative chest. Surgical drains. Right IJ central venous catheter with tip in the low SVC. Inferior approach pulmonary artery catheter with tip in the left pulmonary artery. Normal cardiomediastinal silhouette. Bibasilar atelectasis. No pneumothorax or large pleural effusion. Unchanged osseous structures. IMPRESSION: Bibasilar atelectasis, mildly increased Workstation ID: [id number] Final Dictated by:MD Mayen Eric A Dictated DT/TM:09/13/2024 12:03 Signed by:MD Mayen Eric A Signed (Electronic Signature):09/13/2024 12:02 * Exam Date Time Procedure Performing Provider Status 09/12/24 6:00 AM XR Chest 1 View Tabitha Jackson; Final Notes: (XR Chest 1 View) Reason For Exam: Post Procedure Post Open Heart Surgery POD 1 XR Chest 1 View EXAMINATION: XR Chest 1 View CLINICAL HISTORY: Post Procedure Post Open Heart Surgery POD 1 COMPARISON: 09/11/2024 FINDINGS: AP upright portable radiographs of the chest. Postoperative chest. Surgical drains. Right IJ central venous catheter with tip in the low SVC. Unchanged cardiomediastinal silhouette. Bibasilar atelectasis, mildly increased on the right. No pneumothorax or large pleural effusion. Unchanged osseous structures. IMPRESSION: Bibasilar atelectasis, mildly increased on the right since yesterday. Dr. Abhijeet Burgess is the dictating resident. Finalized reports status indicates that the attending has reviewed the images and report, and agrees with the interpretation. Preliminary report status should be regarded as NOT interpreted by the attending radiologist. Workstation ID: [id number] Final Dictated by:MD Jenifer, Abhijeet Coley Dictated DT/TM:09/12/2024 9:42 Resident:MD Jenifer, Abhijeet Coley Signed by:MD Pham Kathryn L Signed (Electronic Signature):09/12/2024 9:41 a Anatomic Pathology Reports * Report Case Number Specimen Responsible Pathologist Report Status Surgical Pathology Report [id number] MD Morales Jozef; Final * Event Display: SP Disclaimer [facility] performs the technical component for work verified at [facility]([address] [place] [address]; CLIA [id number]), [facility] ([address] [facility] [address]; CLIA [id number]), and [facility] ([address] [place] [id number]; CLIA [id number]). [facility] performs the technical component for work verified at [facility] ([address], [address], [place] [address]; CLIA [id number]) and [facility] ([address] [place] [id number]; CLIA [id number]). All laboratories are under the Clinical Laboratory Improvement Amendments of 1988 (CLIA-88) as qualified to perform high complexity clinical laboratory testing. The following statement applies to flow cytometry, immunohistochemical, histochemical, molecular genetics, immunofluorescence, and in situ hybridization assays. These tests were developed and their performance characteristics determined by a [facility] Department of Pathology Laboratory. All controls show appropriate reactivity. Not all tests have been cleared or approved by the U.S. Food and Drug Administration. The FDA has determined that such clearance or approval is not necessary. For decalcified specimen types, focused validation may have been done that may or may not apply to all decalcified specimen types. Results should be interpreted with caution. MD Morales Jozef:VERIFY; Authored Date: [id number] * Event Display: SP Gross 1. Received fresh labeled patient's name, medical record number, and "ascending aorta", consists ofmultiple fragments of large-caliber vessel measuring 9.5 x 4.5 x 1.5 cm in aggregate. The adventitial surfaces are pink-purple, glistening with focal areas of possible red-brown hemorrhage. The innerwall shows focal yellow streaking. Sectioning reveals red-brown blood clot between the adventitial surface and the underlying vessel wall. Team Physician sections are submitted. Block summary: 1A ([facility])_ MD Morales Jozef:VERIFY; Authored Date: * Event Display: SP Dx 1. Aorta, ascending, dissection repair: - Aortic dissection. - Atherosclerosis. Delbert Morales MD (Electronically signed by) Verified: 09/17/2024 15:51 EDT Performing Location: [facility] MD Morales Jozef:VERIFY; Authored Date: * Event Display: SP Clinical History Ascending aortic dissection MD Morales Jozef:VERIFY; Authored Date: * Event Display: SP Micro 1. Histologic sections of the aorta demonstrate aortic dissection within the background of myxoid degeneration and fragmentation of elastin meshwork, confirmed by elastin stain. Atherosclerotic changes with mild intimal thickening are also noted (see comment). Comment: Aortic dilation and dissection may be associated with atherosclerosis and arterial hypertension. Itis also common in connective tissue disorders, such as Marfan syndrome and a variety of non-Marfan connective tissue defects in the setting of familial or sporadic mutations. Correlation with clinical, imaging and other patient data is recommended. MD Morales Jozef:VERIFY; Authored Date: Vital Signs Most recent to oldest [Reference Range]: 1 2 3 Height 175 cm (09/11/24 11:00 PM) Patient Weight 70.9 kg (09/23/24 4:17 AM) 73.2 kg (09/22/24 4:02 AM) 74.4 kg (09/21/24 2:22 AM) Body Mass Index 24.42 kg/m2 (09/12/24 6:00 AM) 24.13 kg/m2 (09/11/24 11:00 PM) Temperature [36.5-37.9 DegC] 36.6 DegC (09/23/24 12:06 PM) 36.5 DegC (09/23/24 8:00 AM) 36.7 DegC (09/23/24 4:11 AM) Heart Rate 88 bpm (09/23/24 12:06 PM) 101 bpm (09/23/24 8:00 AM) 88 bpm (09/23/24 4:11 AM) Respiratory Rate 16 br/min (09/23/24 12:06 PM) 22 br/min (09/23/24 8:00 AM) 15 br/min (09/23/24 4:11 AM) Blood Pressure 112/71mmHg (09/23/24 12:07 PM) 133/61mmHg (09/23/24 9:07 AM) 95/67mmHg (09/23/24 4:11 AM) Mean Blood Pressure 80 mmHg (09/23/24 12:07 PM) 82 mmHg (09/23/24 9:07 AM) 75 mmHg (09/23/24 4:11 AM) Cuff Pulse Pressure 28 mmHg (09/23/24 4:11 AM) 44 mmHg (09/23/24 12:13 AM) 50 mmHg (09/22/24 8:28 PM) BP Location # 1 Right Arm (09/23/24 12:07 PM) Right Arm (09/23/24 9:07 AM) Right Arm, Non-invasive (09/23/24 4:11 AM) Social History Social History Type Response Smoking Status Never smoked cigaret michael Sex Male Sex Representation Male (finding) Implantable Device List Procedure Provider Procedure Date Device Type Site Unknown Unknown 09/11/24 Unknown Unknown Device Identifier Serial Number Lot or Batch Number Manufacturing Date Expiration Date Distinct Identification Code MRI Safety Implantable Status Assigning Authority Unknown Unknown [id number] Unknown 03/08/27 Unknown Unknown Active Unknown Unknown Unknown N/A Unknown 10/30/28 Unknown Unknown Active Unkn own EKG study * Contributor_system, MUSE01: VERIFY, PERFORM Event Display: EKG Authored Date: [id number] Please click on link to see image. * Contributor_system, [email or web address]: VERIFY, PERFORM Event Display: EKG Authored Date: [id number] Please click on link to see image. * Contributor_system, MUSE01: VERIFY, PERFORM Event Display: EKG Authored Date: Please click on link to see image. Anes H&P * MD Culver Christopher A: MODIFY MD Culver Christopher A: MODIFY, PERFORM MD Culver Christopher A: PERFORM, SIGN MD Culver Christopher A: SIGN, VERIFY MD Culver Christopher A: VERIFY, MODIFY, MODIFY Event Display: Anes H&P Authored Date: [id number] Patient: MASOOD ORELLANA Age: 68 years Sex: Male : 1955 Associated Diagnoses: None Author: MD Culver Christopher A Preoperative Information Pre-Operative Diagnosis: Aortic dissection . Anesthiesia Preop Info: No Scheduled Surgeries Found. . History of Present Illness 68 year old, 67kg male w/ PMH of CAD (s/p angioplasty and stenting of LCX in 2009, known chronic total occlusion of RCA w/ L to R collaterals), prior ascending aorta dilation (Ao root 4.2 cm and descending Ao 4.1cm on 06/2024 CT scan), BPH, hyperlipidemia, pulmonary nodules who is a transfer form [facility] for emergent surgical repair of ascending aortic dissection. PRIOR AIRWAYS: - None on file PRIOR ECHO: -TTE 06/2024 Summary 1. Normal left ventricular size and systolic function with no regional wall motion abnormalities. 2. Ejection fraction as calculated by Biplane Simpsons method is 60%. 3. No left ventricular hypertrophy. 4. Grade I diastolic dysfunction of the left ventricle (impaired relaxation pattern) with Indterminate left atrial pressure. 5. Normal left atrial size. 6. Mildly dilated right atrium. 7. Mildly dilated right ventricle with normal systolic function. 8. Dilated aortic root (4.2 cm) and ascending aorta (4.1 cm) with effacement of the sinotubular junction. Normal aortic arch. 9. Trace to mild aortic insufficiency. 10. Mild mitral valve regurgitation. 11. Mild to moderate tricuspid valve regurgitation. 12. Mild pulmonary regurgitation. 13. Mildly elevated pulmonary artery pressures; estimated PASP is 41 mmHg and PAMP is 22 mmHg. 14. Compared to the previous study performed 12/12/2022, ascending aorta size is unchanged. ANTICOAGULATION/ANTIPLATELETS: - ASA 81mg (unknown when last dose) LABS: - Most recent labs 04/18/2024: Potassium 4.4, bicarb 31, creatinine 0.88, glucose 100 ALT 18, AST 22 No recent CBC in EMR or outside records. NPO: - Gianni Marshall MD PGY-3 Resident Anesthesiology & Perioperative Medicine 09/11/2024 12:44:45 Medical History Medical Devices: Medical Devices: none . Health Status Allergies: Allergic Reactions (Selected) No Known Medication Allergies. Medications: Medication List (Selected) Prescriptions Prescribed Metoprolol Succinate ER 25 mg oral tablet, extended release: 1 tab, PO, Daily, 360 tab, 0 Refill(s) ezetimibe 10 mg oral tablet: 1 tab, PO, Daily, 90 tab, 2 Refill(s) ketoconazole 2% topical cream: 1 appl, topical, bid, to right foot, 30 g, 5 Refill(s) lisinopril 40 mg oral tablet: 1 tab, PO, Daily, 90 tab, 2 Refill(s) meloxicam 7.5 mg oral tablet: 1 tab, PO, Daily, 90 tab, 3 Refill(s) montelukast 10 mg oral tablet: 1 tab, PO, qPM, 90 tab, 1 Refill(s) rosuvastatin 40 mg oral tablet: See Instructions, 1 tab PO Every other day, 90 tab, 3 Refill(s) Documented Medications Documented Aspir-Low 81 mg oral delayed release tablet: 1 tab, PO, Daily Fish Oil 1000 mg oral capsule: Vitamin D3: 50 mcg, PO, Daily fexofenadine: 180 mg, PO, Daily, will prn take BID fluticasone 50 mcg/inh nasal spray: 1 spray, each nostril, Daily ipratropium 21 mcg/inh (0.03%) nasal spray: 2 spray, each nostril, tid, PRN: as needed for allergy symptoms loratadine 10 mg oral capsule: 1 cap, PO, Daily. Histories Procedure History: Shave biopsy of skin ([id number]) on 09/27/[address] of abdomen ([id number]) on 04/09/2023 at 67 Years. Comments: 04/09/2023 14:57 TRAYT - CARL Hugo, Katey Buckner 1. Numerous hepatic lesions have not significantly changed as compared to the 03/24/2022 examination. The larger lesions represent hemangiomas. The smaller lesions also likely represent hemangiomas but are not definitively characterized. 2. No new or enlarging liver lesion seen. 3. Horseshoe kidney noting bilateral nephrolithiasis. 4. Cardiomegaly with advanced coronary artery atherosclerosis. 5. a 14mm lingular pulmonary nodule is unchanged. See report of chest CT. 6. Additional findings as above. Computed tomography (CT) of liver with contrast ([id number]) on 03/24/2022 at 66 Years. Comments: 04/05/2022 20:24 DIANN Perez MD, Renee L numerous hepatic lesions, larger ones c/w hemangiomas, smaller ones more difficult to categorize, but likely hemangiomas; horseshoe kidney, several L calculi; no change in lower lung nodules CT of chest without contrast ([id number]) on 12/14/2021 at 65 Years. Comments: 04/05/2022 20:19 DIANN Perez MD, Renee L few scattered low suspicion solid pulm nodules up to 4mm; subpleural/fissural nodule in lingula 1.2cm, no change from 2015; 1.8 X 0.9 cm nodulein ant mediastinum, nonenlarged lymph node vs thymic nodule; indeterminant scattered ill-defined hypodense hepatic lesions, up to 4cm; fusiform dilatation of ascending aorta 4.1 X 4.0 cm EMG - Electromyography ([id number]) on 12/06/2021 at 65 Years. Comments: 04/05/2022 20:20 DIANN Perez MD, Renee L normal Trigger finger of right hand ([id number]) in 2020 at 65 Years. Comments: 01/24/2022 15:21 TRAYT - JOSSE Prajapati, Mirna Sharma middle finger CT of cervical spine ([id number]) on 05/10/2020 at 64 Years. Comments: 05/05/2022 07:51 DIANN Baca LPN, [facility] Impression: 1. No acute bony abnormality seen involving the cervical spine 2. Multilevel spondylotic change X-ray of lumbosacral spine ([id number]) on 01/23/2020 at 64 Years. Comments: 05/05/2022 07:53 DIANN Baca LPN, [facility] Impression: 1. No acute findings. Degenerative changes Plain X-ray of right hand ([id number]) on 01/23/2020 at 64 Years. Comments: 05/05/2022 07:54 DIANN Baca LPN, [facility] Impression: 1. No fracture Plain X-ray of sacroiliac joint ([id number]) on 01/23/2020 at 64 Years. Comments: 05/05/2022 07:52 DIANN Baca LPN, [facility] Impression: 1. No radiographic evidence of sacroiliitis TURP - Transurethral resection of prostate ([id number]) in 2018 at 61 Years. Hemorrhoidectomy (99601868) in 2017 at 60 Years. Colonoscopy ([id number]) on 10/25/2015 at 59 Years. Transurethral incision of bladder neck (5570787248) in 2016 at 59 Years. Repair of inguinal hernia (03063515) in 2011 at 56 Years. Angioplasty (3459764074) in 2010 at 54 Years. Tonsillotomy (636147462) in 1958 at 3 Years. Bunionectomy (67724009). Excision of lipoma (295369535). CT of chest ([id number]). Comments: 04/09/2023 13:27 DIANN Baca LPN, [facility] Impression: 1 No acute intrathoracic abnormality 2 Stable scattered low suspicion solid pulmonary nodules measuring up to 4 mm Follow-up guidelines provided below. 3 Subpleural/fissural nodule within the lingula measuring 1 2 cm is also unchanged. As previously stated, in retrospect this nodule was likely present dating back to the 2015 chest radiographs Based on stability a benign lesion is favored 4. Hepatic leions are redemonstrated, previously described as hemangiomata on the 03/24/2022 exam.. Social History: Cigarrette Smoker? Other Tobacco Use: Alcohol: Recreational Drugs: . Physical Examination VS/Measurements: Reviewed Results: Vital Signs(Date Range: 09/11/2024 00:00 EST - 09/12/2024 13:36 EST) . Airway: Mallampati classification: UTO. Mouth: Teeth ( UTO ), UTO. Respiratory: Respirations are non-labored. Cardiovascular: Normal rate. Anesthesiologist Assessment and Plan Problems: UTO. ASA Classification: Class IV, E. Anesthetic Plan: Anesthetic technique discussed: General anesthesia. Airway plan discussed: UTO. Risks discussed: UTO. Informed consent: UTO. History, Physical Exam, Assessment and Plan Completed: 09/11/2024 12:30:00, MD Palomo, Carlos Macias Electronic Signature on File Electronically Reviewed/Signed by: Carlos Culver MD Author Signature Dt/Tm:09/12/2024 01:38 PM Department of Anesthesia [facility] Surgical operation note * MD Mulligan Aditya: PERFORM Event Display: .Operative Report Authored Date: [id number] OPERATIVE REPORT Name: MASOOD ORELLANA Patient Number: [id number] : 1955 Date of Service: September 11, 2024 SURGEON: Dr. Terry Mulligan HYDRAULIC ENGINEER(s): Dr. Zan Harrington PREOPERATIVE DIAGNOSIS: 1 coronary artery disease 2. Acute type a aortic dissection 3. Acute limb ischemia left lower extremity POSTOPERATIVE DIAGNOSIS: Same OPERATION PERFORMED: 1. Bilateral femoral artery exploration 2. Right common femoral to left common femoral artery bypass-8 mm PTFE graft 3. Left lower extremity 4 compartment fasciotomy ANESTHESIA: General COMPLICATIONS: None SPECIMENS: None ESTIMATED BLOOD LOSS: 300 cc INDICATIONS: Presenting here is a 68-year-old gentleman who was transferred from an outside hospital with concerns for acute type a dissection. Patient went to the operating room with cardiac surgery for type aortic dissection repair. Upon presentation it was found that the patient had sensory loss of the left lower extremity along with poikilothermia of the left lower extremity was cold with no signals on Doppler exam. Patient did not have a good femoral pulse on the left side as well and only had Doppler femoral signals. On the contralateral side the patient had palpable femoral pulse with good Doppler DP and PT signals. Decision was made at that time during examination for the patient to first have proximal dissection repair and reevaluate the patient intraoperatively to check for perfusion. Pleaserefer to cardiac surgery note regarding their part of the procedure. During reevaluation it was found that the patient continued not to have any DP PT signals on the left foot. Femoral artery had monophasic signals on the left side as compared to the right side which had palpable pulse. Hence a decision was made to perform a cutdown of the left femoral artery to explore and possibly perform a femorofemoral bypass with possible 4 compartment fasciotomy of the left lower extremity given reperfusion after many hours of nonperfusion. OPERATION: Nature and natural course of the disease and management plan including risks benefits and potentialcomplications and alternatives to the current management plan were explained to the patient. After answering all the questions posed by the patient the patient has chosen and given consent for this procedure. After ensuring presence of informed consent in the chart the patient was brought to the operating room and laid supine on the table. General anesthesia was administered after securing the airway with endotracheal intubation. Perioperative antibiotics were given. Patient was prepped and draped in usual sterile fashion. The surgeon and the rehabilitation assistant scrubbed in the usual sterile fashion. Auniversal timeout was carried out. Inguinal ligament was marked and a 5 cm vertical incision was made at the predetermined incision line in the groin crease. Incision was deepened down to the skin and subcutaneous tissue until the inguinal ligament was identified and cleaned off. Femoral sheath was then identified and incised. Common femoral artery was then identified and controlled with Vesseloops. Additional branches coming out of the common femoral artery were also controlled using Vesseloops. The dissection was then carried forward distally and superficial femoral artery and profundofemoral artery were then dissected and controlled with Vesseloops. It was found at this time that the left femoral artery was not pulsatile well compared to the rightfemoral artery that was pulsatile in nature. At this time right common femoral artery cutdown was done in a similar fashion as described above to the left common femoral artery. Right common femoral artery, profundofemoral artery and superficial femoral artery control was then obtained with Vesseloops. A tunnel was then bluntly created from the right side to the left side using a aortic clamp. And a rifampin soaked 8 mm PTFE graft was passed through the tunnel site. Patient at this time was systemically heparinized. Right common femoral artery was clamped and arteriotomy was made. Proximal anastomosis of the right common femoral artery was then created using 5-oGore suture prior to completion of the anastomosis the repair was blood proximally and retrograde to the area of the graft. Good bleeding was seen. SFA was pulsatile and profunda had good flow confirmed with Doppler. We then clamped the graft and diverted our attention towards the left side. The left common femoral artery was then clamped and then arteriotomy was made and anastomosis was completed at the distal site using a 5-0 [place] suture in a running fashion. Prior to completion of theanastomosis we blood antegrade and retrograde to de-air the graft and good antegrade bleeding and retrograde bleeding from the SFA was identified. Good flow in the left SFA and profunda was confirmedwith Doppler. At this time we also confirmed good Doppler signals in the left foot DP and PT. At this point the wound was thoroughly irrigated and the groin. Lymphatic vessels and lymph nodes that were appreciated were ligated with silk sutures. Hemostasis was achieved using electrocautery Bovie and hemostatic agents. Each groin was closed in layers. Femoral sheath was first closed using a 2-0 Vicryl in a running fashion. Heron's fascia was then closed using a 2-0 Vicryl in a running fashion. Subcutaneous tissue was then closed in a running 3-0 Vicryl fashion. Intradermal 3-0 Vicryl stitches were placed. Skin was closed using running nylon stitch. Along 20 cm incision was made on the lateral aspect of the leg and the intermuscular groove felt onthe skin between the anterior and the lateral compartments. The incision was deepened down to the skin and subcutaneous tissue. The fascia was encountered and then was incised and the anterior, apartm ent and the posterior compartment. This incision was then extended proximally and distally with thehelp of Metzenbaum scissors. Care was taken so as to be very careful extending the incision proximally to prevent damage to nerve structures. Once adequate muscles were released we performed by crusting of the fascia so as to give more room for the muscles to expand. For the medial aspect, a similar 15 to 20 cm incision was made longitudinally posterior to the tibial tuberosity. Incision was deepened down to the skin subcutaneous tissue fascia was then identified and and incised. Gastroc and soleus muscles were then released and the superficial and deeper compartments were then excised and rel eased. Care was taken to prevent laceration of the great saphenous vein of and vein. Hemostasis wasthen achieved using electrocautery Bovie. The fasciotomy site was packed with Kerlix and sterile dressings and Dexter wrap was applied. Patient tolerated the procedure well. I was present and scrubbed for the entirety of the case. At the end of the case and instrument and sponge count was performed and found to be accurate. FINDINGS: 1. Preaortic repair-left lower extremity cold no DP PT or popliteal signal. Monophasic femoral signal. 2. Palpable right femoral pulse. DP PT signals on the right foot. Postrepair findings: 1. Nonpulsatile left femoral artery as compared to right femoral artery that was pulsatile. Plan made to perform right and left femorofemoral bypass. 2. Multiphasic DP PT bilaterally postoperatively. 3. 4 compartment fasciotomy of the left lower extremity performed in anticipation of reperfusion injury given reperfusion after many hours of nonperfusion. 4. Anterior, lateral and posterior deep and superficial muscles reactive. Electronic Signature on File Electronically Reviewed/Signed by: Terry Mulligan M.D. Author Signature Dt/Tm:09/11/2024 09:18 PM Division of Vascular Surgery Vascular Surgery Inpt Consult * MD Mulligan Aditya: MODIFY MD Mulligan Aditya: MODIFY Event Display: Vascular Surgery Inpt Consult Authored Date: [id number] VASCULAR SURGERY INPATIENT CONSULTATION REPORT Name: MASOOD ORELLANA Patient Number: [id number] : 1955 Date of Service: 09/11/2024 REQUESTING SERVICE: cardiac surgery REASON FOR CONSULTATION: intraoperative consult for acute limb ischemia secondary to type A aortic dissection ASSESSMENT: The patient is a 68 yo male who was emergently transferred from [facility] for repair of type A dissection with CT surgery. Imaging shows L common iliac originating from false lumen and occlusion of L ext iliac. Vascular surgery consulted intraoperatively for acute limb ischemia of theLLE. RECOMMENDATIONS: 1 ) Emergent OR for repair of type A dissection with CT surgery. 2 ) Will plan for operative intervention of the LLE following CT portion of case. [facility] Vascular Surgery Emmett Resident labor union business representative with questions or concerns History of Present Illness: The patient is a 68yo male who was found to have type A aortic dissection at [facility], transferred to [facility] and taken emergently to OR with CT surgery. Vascular surgery engaged for evaluation of ALI of LLE. Pt was being prepped and draped in the OR, so unableto obtain hx. LLE is cool to touch with poor capillary refill. motor and sensory exam unable to be p erformed intraoperatively, but per reports from outside hospital, pt was insensate in LLE with decreased motor function in that extremity prior to transfer. No doppler pulses in L popliteal or distally in the LLE. RLE had triphasic signals distally and did not appear to be compromised. Past Medical History: unknown Surgical History: unknown Family History: unknown Social History: unknown Review Of Systems: unable to be obtained Allergies and Sensitivities: No Known Medication Allergies Active Inpt Meds: mupirocin topical (mupirocin 2% nasal ointment) 1 appl each nostril bid Active PRN Meds: None One Time Meds: (Completed) fentaNYL (fentaNYL (ANES)) w/ IV ONCE(Completed) heparin (heparin (ANES)) w/ IV ONCE(Completed) methadone (methadone (ANES)) w/ IV ONCE(Completed) phenylephrine (phenylephrine (ANES)) w/ IV ONCE(Completed) propofol (propofol (ANES)) w/ IV ONCE(Completed) rocuronium (rocuronium (ANES)) w/ IV ONCE Active IV Meds: None No Vital Signs Data Available Initial Wt: No Data Available Physical Exam: General: intubated and sedated in the operating room Extremity: RLE appears warm and well perfused. motor and sensory exam unable to be obtained. LLE iscool to touch, cap refill >3 sec, motor and sensory unable to be assessed (R) (L) x x femoral pulses doppler Femoral pulses palpable DP pulses palpable x DP pulses Doppler PT pulses palpable x PT pulses Doppler Other: Most Recent 24 Hour CBC/BMP Results No Latest CBC or BMP Found. Most Recent 24 Hour Labs: 09/11/24 1415 Gluc Meter 140 H 09/11/24 1321 ABO/Rh See Flowsheet 09/11/24 1320 Antibody Scr See Flowsheet Expires at 0600AM on See Flowsheet # Units 6 R Number See Flowsheet Component See Flowsheet Studies: Pending or Completed in the Last 24 Hours Echo TransESOPHageal KUSUM IntraOp - Anes Ordered Vascular Surgery Attending Addendum: IntraOp consultation for a 68-year-old gentleman undergoing surgery for type B aortic dissection. Upon presentation it seems he had left lower extremity weakness and numbness along with poor circulation evidenced by no evidence of Doppler signals at DP and PT. Intraoperative evaluation while the patient was already intubated showed no DP PT signals and a faint popliteal signal on the left side. Right side had a good DP and PT signal. At this point plan is made for the patient to undergo repair of the proximal aorta and to be reevaluated after to see if the patient's hemodynamics with respect to true and false lumens have changed enough to perfuse the left lower extremity if not, plan for fem orofemoral bypass revascularization followed by fasciotomy in emergent fashion. I have personally seen and examined the patient, independently reviewed the labs and interpreted the imaging and discussed the care and management plan of patient along with the vascular surgery teamand staff. I agree with the plans made above with modifications and addendum stated. The nature and natural history of disease, current clinical condition, laboratory work, imaging andcurrent treatment plan with available alternatives have been discussed with the care team and explained to the patient and their family and all the questions have been answered to their satisfaction as they have verbalized an understanding. Electronic Signature on File Electronically Reviewed/Signed by: Randi Hdez DO Author Signature Dt/Tm:09/11/2024 03:16 PM Resident Division of Vascular Surgery Electronically Reviewed/Signed by: Terry Mulligan M.D. Cosigner Signature Dt/Tm: 09/17/2024 10:50 AM Division of Vascular Surgery KG * MD Ese, Terry: PERFORM Event Display: Vascular Surgery Inpt Consult Authored Date: [id number] Of note, it was also discussed with the team and the patient's family that he remains at high risk for limb loss. Electronic Signature on File Electronically Reviewed/Signed by: Terry Mulligan M.D. Author Signature Dt/Tm:09/17/2024 10:50 AM Division of Vascular Surgery Facility Discharge Instructions * JOSSE Delgado, Flor Ventura: PERFORM, MODIFY Event Display: Facility Discharge Instructions Authored Date: [id number] MASOOD ORELLANA :1955 Visit Date:09/11/2024 Facility Discharge Instructions [facility] For medical concerns, call: . Date of Admission: 09/11/2024 Date of Discharge: 09/23/2024 Physician: MD Cesar Jonathan M Service: Cardiac Surgery Discharge Disposition: rehab Primary Care Provider/Phone: MD ANA, RENEE Islas (BUSINESS) [phone] (FAX BUSINESS) . Advance Directive: None Reason for Hospitalization Aortic aneurysm Your Diagnoses Aortic aneurysm Acute blood loss as cause of postoperative anemia Hypercarbia Hyperglycemia Hypotension Lactic acidosis Respiratory acidosis Right ventricular dysfunction S/P aortic dissection repair Thrombocytopenia Type A aortic dissection [facility] [facility] [facility] Patient Portal: WireOver makes it easy for you to manage your health information online. Qu[employer]hop is a free service that provides you instant, secure access to your medical information anytime, anywhere. Sign in or set up your account today at [email or web address] Thank you for allowing us to assist you with your healthcare needs. If you need additional community resources, [employer] can help at [email or web address] [email or web address]. 211 can assist you in connecting with social programs based on your unique needs and locations. 211 is an anonymous search that can help you locate resources for: Food, Housing, Transportation, Goods, Education and Healthcare. Hospital Course 68 y.o. 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 09/11: OR s/p Aortic Arch Replacementwith Hemiarch #30mm with Valve Resuspension, and a Right to Left Fem- Fem Bypass with 4 compartment Fasciotomies to LLE. Patient was extubated, vasoactive medications were weaned off appropriately and patient was downgraded to IMC status. CTs and wires were removed without issue. Blood transfusions were given as needed. Vascular followed for fem- fem bypass and fasciotomy site. The patient’s activity and diet were advanced. Medications were started as per protocol and titrated appropriately. Patient was seen by PT, OT, and [employer] and was discharged on 09/23/24 to rehab. Referral to cardiac rehab was placed. On day of discharge, patient was hemodynamically stable. WBC was noted to be elevated however it was a downtrend and appeared to have stabilized. No signs of infection: including no issues with wound, no fevers. Denied significant chest pain or shortness of breath. Incision appeared to be healing well. Pain controlled with oral medications only. Discharge discussed with attending who was in agreement. They were provided with education on wound care, diet, medicationchanges, and activity restrictions. Referral to cardiac rehab was placed. Patient to be dischargedwith wound vac and changes are to be done MWF. Per vascular patient to be discharged on ASA and NOAC (eliquis). Plan to followup with plastics for fasciotomy closure. Will need CTA (chest-gated Joni/P) in [address] Cesar dissection protocol. We thank you for the opportunity to participate in the care of your patient. Please do not hesitateto contact us with any questions. Sincerely, [facility] Cardiac Surgery Service Exam on Discharge Vitals & Measurements: T: 36.7 °C TMIN: 36.5 °C TMAX: 37.1 °C HR: 88 (Monitored) RR: 15 BP: 95/67 SpO2: 96% Oxygen Flow: 1 (L/Min) Oxygen Therapy: Nasal cannula WT: 70.9 kg Medications What How Much When Why Instructions Next Dose New acetaminophen (Tylenol 500 mg oral tablet) 2 tab(s) by mouth Every 6 hours as needed for fever/mild pain (1-3) New albuterol (albuterol 0.5% for nebulization) 0.5 Milliliter by nebulizer Every 4 hours as needed for wheezing New apixaban (Eliquis 5 mg oral tablet) 1 tab(s) by mouth 2 times daily New bisacodyl (Dulcolax Laxative (vegetable base) 10 mg rectal suppository) 1 suppository(ies) rectally Once daily New calcium gluconate 2,000 Milligram intravenously As indicated as needed for see order comments New carvedilol (Coreg 3.125 mg oral tablet) 1 tab(s) by mouth 2 times daily New cyclobenzaprine (cyclobenzaprine 5 mg oral tablet) 1 tab(s) by mouth 3 times daily as needed for spasms New docusate (Colace 100 mg oral capsule) 1 cap by mouth 2 times daily New finasteride (finasteride 5 mg oral tablet) 1 tab(s) by mouth Once daily New guaiFENesin (guaiFENesin 600 mg oral tablet, extended release) 1 tab(s) by mouth 2 times daily New HYDROmorphone (Dilaudid 0.2 mg/ mL injectable solution) 1 Milliliter by intravenous push Once as needed for dressing changes New LORazepam (Ativan 0.5 mg oral tablet) 1 tab(s) by mouth 3 times daily as needed for anxiety New magnesium hydroxide (Milk of Magnesia) 30 Milliliter by mouth Once daily New magnesium sulfate 4,000 Milligram intravenously As indicated as needed for see order comments New magnesium sulfate 2,000 Milligram intravenously As indicated as needed for see order comments New ondansetron (Zofran 2 mg/ mL injectable solution) 2 Milliliter by intravenous push Every 6 hours as needed for nausea and vomiting New oxyCODONE (oxyCODONE 10 mg oral tablet) 10 Milligram by mouth Once as needed for dressing changes New oxyCODONE (oxyCODONE 10 mg oral tablet) 10 Milligram by mouth Every 4 hours as needed for pain - severe (7-10) New oxyCODONE (oxyCODONE 5 mg oral tablet) 5 Milligram by mouth Every 4 hours as needed for pain - moderate (4-6) New pantoprazole (Protonix 40 mg oral delayed release tablet) 1 tab(s) by mouth Once daily New polyethylene glycol 3350 (MiraLax) 17 gram by mouth Once daily New potassium chloride 20 Milliequivalent intravenously As indicated as needed for see order comments New simethicone (simethicone 80 mg oral tablet, chewable) 1.5 tab(s) by mouth Before meals and at bedtime as needed for Abdominal bloating - gas pain New sodium chloride nasal (sodium chloride nasal 0.65% spray ([place])) 1 spray(s) in each nostril Every 30 minutes as needed for Discomfort Changed aspirin (aspirin 81 mg oral delayed release tablet) 1 tab(s) by mouth Once daily Changed rosuvastatin (rosuvastatin 40 mg oral tablet) 1 tab(s) by mouth Once daily Unchanged cholecalciferol (Vitamin D3) 50 Microgram by mouth Once daily Unchanged ezetimibe (ezetimibe 10 mg oral tablet) 1 tab(s) by mouth Once daily Unchanged fexofenadine 180 Milligram by mouth Once daily will prn take BID Unchanged fluticasone nasal (fluticasone 50 mcg/ inh nasal spray) 1 spray(s) in each nostril Once daily Unchanged ipratropium nasal (ipratropium 21 mcg/ inh (0.03%) nasal spray) 2 spray(s) in each nostril 3 times daily as needed for as needed for allergy symptoms Unchanged ketoconazole topical (ketoconazole 2% topical cream) 1 aracelis topically 2 times daily Tinea pedis to right foot Unchanged loratadine (loratadine 10 mg oral capsule) 1 cap by mouth Once daily Unchanged montelukast (montelukast 10 mg oral tablet) 1 tab(s) by mouth Every evening What How Much When Comments Stop Taking lisinopril (lisinopril 40 mg oral tablet) 1 tab(s) by mouth Once daily Stop Taking meloxicam (meloxicam 7.5 mg oral tablet) 1 tab(s) by mouth Once daily Stop Taking metoprolol (Metoprolol Succinate ER 25 mg oral tablet, extended release) 1 tab(s) by mouth Once daily Stop Taking omega-3 polyunsaturated fatty acids (Fish Oil 1000 mg oral capsule) Allergies No Known Medication Allergies What to do next Instructions From Your Doctor For fevers (higher than 101’F), chills, shortness of breath, chest pain, or any pain not relievedby prescribed medication, seek urgent evaluation and call the CT Surgery office at [phone]. Ifit is after-hours, weekends or holidays, please call [phone] to have the cardiothoracic surgery team physician on-call paged. For any scheduling questions, call [phone]. If you notice warmth, redness, swelling, incision opening, or drainage around your incision, seekurgent evaluation and call the [place] Surgery office at [phone] during business hours. For after-hours, weekends or holidays, call [phone]. Continue using your incentive spirometer for at least 1 to 2 weeks after discharge date to prevent pneumonia. Walking is encouraged. Use your walking assistive device if needed. Walking will help prevent clotsforming in your legs. No driving, no lifting/pushing/pulling more than 5-10 pounds (about a gallon of milk) for 4-6 weeks, or until cleared by your surgeon. After the initial 4-6 weeks, no lifting anything more than 15-20 pounds for the next 6 weeks. Take medications as prescribed. Please call the [place] Surgery office if you have any questions regarding your medications ([phone]). Refill requests on medications are to be sent to your primary care physician or your hiv nurse. Your prescription refills were sent to [facility], and if you would like them transferred to your local pharmacy please have you local pharmacy call [phone] for transfer assistance. If you were discharge on Coumadin, you will have an appointment with the Coumadin Clinic ([phone]), or your hiv nurse, for an INR check. It is very important to keep this appointment. *Please check your blood pressure twice daily and record the values in a log book. *Please check your weight daily and record the values in a log book. If you gain more than 2lbs in one day, or 3-5lbs in one week, call the surgery office immediately ([phone]). *Bring your log book with daily weights and blood pressure measurements with you to clinic appointments. Other reasons to call the surgery office: ([phone]) -Persistent cough with sputum -Increased swelling of legs and feet not relieved with elevation -Worsening shortness of breath while walking, lying flat or talking -Any concerns or questions -Always call 911 or go the Emergency room if you are concerned and cannot reach anyone in a physician’s office. Call 911 or go to the Emergency Room immediately if: -Chest pain similar to your chest pain before surgery -Heart beat faster than 110 beats per minute for greater than 20 minutes -Fainting spell -Sudden severe headache -Coughing up bright red blood -Dark or black sticky stools (bowel movement) - Shortness of breath not relieved by rest -Severe abdominal pain -Any other health issues for which you are concerned Call your Primary Care Physician for: -Burning with urination or urinary frequency -Skin rash -Sore throat Be aware that depression and mild fatigue is common after heart surgery and you will likely experience a slow recovery of your energy level. Caring for Your Incision Your incisions may itch or feel sore, tight, or numb for a few weeks. These are all normal signs ofhealing. Some bruising around the incisions is also normal. To care for your incisions: · Wash them gently with warm water and a mild soap. Keep your back to the water stream as much as possible. Do not scrub incision sites and pat dry. Don't soak the incisions or keep them in water such as in a bathtub, hot tub, or pool until cleared by your surgeon. -Leave incisions open to air. It is ok to place a small bandage on the incisions if there is small drainage. If you have a Prinio dressing in place, it is ok to shower as normal. The dressing will beevaluated at your next appointment. · To help prevent infection, don't use any lotions or creams, including Neosporin, near the incisions unless your healthcare provider tells you to do so. -Females should wear a bra to avoid stress on the incision. Keep a washcloth or gauze on incision where the bra lays. This will help keep the incision dry. Wounds breakdown when they are moist. -If you have tanya or sutures in place, these will be removed at your post- operative appointment. Reaching, Bending, and Lifting Moving carefully During your first few weeks at home, you need to move carefully. This is because your breastbone (sternum) was cut during surgery. The bone takes about 4 to 6 weeks to grow back together. It won't come apart if you move the wrong way, but you may feel pain around the incisions or hear a clicking sound in your chest. These are warning signs to move more carefully. Follow the tips below. Reaching Until your breastbone heals, twisting your upper body can be painful. When you reach for something,follow these steps: Turn with your entire body so that you face the object. Step close to it. Lean forward from the waist to pick it up. Bending and lifting For the first few weeks, keep the things you use most, such as clothing and dishes, at waist level.If you must bend down to lift something light, follow these steps: · Stand close to the object. · Put your feet shoulder-width apart, with one foot slightly in front of the other. · Hold on to something sturdy with one hand. · Bend at the knees. Keep your back and neck straight and your shoulders and hips in line. · gym supervisor the object and hold it close to your body. · Slowly push up with your legs. If you need anything that weighs more than 5 to 10 pounds or that is on the floor, ask someone to get it for you. Prevent Swelling in Your Legs After surgery, it's common for your legs to swell a little. To control the swelling: · Get up once an hour and walk around for a few minutes. · When you sit or lie down, put your feet on a footrest or on the arm of the couch. Your feet should be raised above the level of your heart. You can support your lower legs with pillows. · Your doctor may also want you to wear elastic compression stockings during the day. Take them off at night to sleep. Get plenty of rest Getting plenty of rest will help you get your strength back faster. · Try to get a good night's sleep. It helps to go to bed at the same time each night. · Don't get anxious if you can't sleep through an entire night. Your sleeping patterns will become more normal with time and as your recovery continues. You may also feel more comfortable sleeping in a different position or a recliner as you recover. Try to avoid sleeping on your side until the breastbone heals. · Stop and rest for a few minutes after each activity and whenever you feel tired. You can nap or just relax. Driving and Social Activities As you feel stronger, you can go out and do more. At first, keep activities to about an hour. And remember that it's OK to leave early or ask visitors to go home so you can rest. For your own safety and the safety of others, NO driving for 4-6 weeks, or while taking pain medications, or until your doctor says you can. There are several reasons for this: · Your reaction time is slower until you regain your strength. The medicines you take, along with sharp pain from sudden movements, may also slow your reaction time. · If you were to be in a crash, hitting the steering wheel could damage your breastbone. Eating healthy · Eat a heart healthy diet, or carb controlled diet if you are diabetic. Limit how much salt you get. You do not have to change your diet completely in one day. Make small changes over time to reach your goal. You need calories to heal from your surgery. · Eat small meals more often if you don't have a good appetite when you go home. It is normal to not have much of an appetite after surgery. Appetite will return as you heal. After Surgery: Visits with Your Healthcare Team After your surgery, you'll have regular follow-up visits with your healthcare team. Expect to schedule: · A visit with the surgeon to check your incisions · A visit with the Tailoring Teacher (heart doctor) to check your health and adjust your medicines · A visit with your primary care doctor to check your overall health and diabetes. Your prescription refills were sent to [facility], and if you would likethem transferred to your local pharmacy please have you local pharmacy call [phone] for transfer assistance. After Surgery: Your Role in Recovery Much of your recovery is up to you. Your doctor and other healthcare providers are there to help. But you need to care for your body and slowly rebuild your strength. That means doing a little more each day, without pushing yourself too hard. Following the guidelines from your doctor can help youremember what to do and what to expect along the road to recovery. Tips to remember During your first few weeks at home, keep these tips in mind: · Take your medicines as directed. These are important for your recovery. Call the office if you feel you are having side effects from medications. · Call your doctor if you have any sign of a problem, such as fever, increased pain, or drainage from the incision. · Move carefully to protect your incision and your breastbone. · Pace yourself so you don't feel rushed or get overtired. · Exercise 5 days a week. Increase your time and pace slowly. · Talk with your family and close friends about how you feel and what you need from them. © 3307-7569 [employer]. [address], [place] [address]. All rights reserved. This information is not intended as a substitute for professional medical care. Always follow your healthcare professional's instructions. IF you have a prineo dressing (clear mesh over your incision). You may shower daily with the dressing. It may fall off on its on or will be removed at follow up appointment. Please do not scrub thedressing or place any lotions/ creams on the area. INCISION CARE: Fasciotmy incision: L leg fasciotomy incisions should continue with MWF wound vac changes. large black sponge set to -125mmHg. during transport to facility will be changed to wet to dry dressing, but pt should resume vac therapy when arriving at facility. Diet Instructions Activity Instructions Follow-Up Appointments Scheduled Follow-Up Appointments Date/Time: Provider/Resource: Sep 02:05 pm Siri Hancock Location/Instructions: [facility], [address] [place] [address], [address] [address] Date/Time: Provider/Resource: Sep 04:15 pm DAVI Dunlap Karl M Location/Instructions: [facility] [place]лен[place] Metzger, [address], [address], [place] [address], [place] [address] . Please arrive 15 minutes earlier than your appointment time for the check in process. Date/Time: Provider/Resource: Oct 11:15 am JOSSE Perez Dawn M Location/Instructions: [facility], [facility], [facility] [address], [place] [address] Date/Time: Provider/Resource: Oct 08:30 am JOSSE Cohen Michelle L Location/Instructions: [facility], Entr[address], [address] [facility], [place] [address]. This appointment time has been reserved for your appointment. If you need to cancel or reschedule your visit call . Please arrive 15 minutesearlier than your appointment for check in process. Date/Time: Provider/Resource: Oct 09:00 am [facility] Rm2 Location/Instructions: 1. No Smoking, No Caffeine 1 hour prior to exam.2. You will be requiredto lie flat on a stretcher for this exam. Date/Time: Provider/Resource: Oct 10:30 am [facility] CV Rm2 Location/Instructions: 1. For this exam you may have nothing to eat or drink 10 hours prior to your exam. 2. No smoking, nicotine, or tobacco the night before and/or the morning of the exam. 3. Please contact the physician that provides your medications for any instructions on how to handle dosing prior to the test. If you are on insulin or take medications for diabetes, consult your physician as to how to handle dosing of this medication prior to the test. Date/Time: Provider/Resource: Oct 10:15 am DO Velasquez Jason D Location/Instructions: [facility], [facility] [address], [address], [place] [address] . Please arrive 15 min earlier than your appointment time for Check In Process. Date/Time: Provider/Resource: November 01:45 pm MD Mulligan Aditya Location/Instructions: [facility] [place] [facility], [address] [place] [address], [address], [place], [place] [address]. This appointment time has been reserved for your appointment. If you need to cancel or reschedule your visit call . Please arrive 15 min earlier than your appointment time for Check In Process. Date/Time: Provider/Resource: Jan 08:50 am MD Ana, Renee Islas Location/Instructions: [facility], [address], [address], [place] [address] . Please arrive 15 min earlier than your appointment time for Check In Process. You Need to Schedule the Following Appointments Follow Up with Follow up with plastic surgery Follow Up with Follow up with vascular. Follow Up with Follow up with hiv nurse. Follow Up with Follow up with primary care provider The Following Services Have Been Arranged for You Service: Organization: Business Address: Phone Number: Acute Rehab [facility] [address] [place], [address] Tests Pending Extra Lavender Extra Lavender To obtain results pending at hospital discharge, call and ask for the following Physician: MD Arsenio, Henok Montesinos Procedures Performed Aortic Arch Replacement with Hemiarch and valve re-suspension, Me 09/11/2024 Nursing Assessment Cardona: 09/11/2024 Indwelling 16 Fr Insert Date: 09/11/24 22:00 (No insertion activity documented) Removal Date: 09/14/24 17:59 Cardona: 09/15/2024 Straight Cath Insert Date: 09/15/24 01:09 (No insertion activity documented) Removal Date: No Removal Currently Documented. Cardona: Male External Urinary Device Insert Date: 09/18/24 23:39 (No insertion activity documented) Removal Date: 09/20/24 08:00 Line: Non-tunneled catheter (e.g. CVP, Areli, Cook, Arrow) Double Lumen Jugular, right Insert Date: 09/11/24 21:50 (No insertion activity documented) Removal Date: No Removal Currently Documented. SPECIAL NEEDS: Sensory Deficits: None Level of Consciousness Neuro: Alert Neurological Symptoms: Numbness, Tingling, Weakness ADLS: Moderate assistance Last BM: 09/22/2024 Basic Skin Assessment: [place], Warm, Dry Special Instructions Common Emergency Awareness Tips Call 911 immediately if: experiencing any of the warning signs and symptoms of stroke: B.E. F.A.S.T. Balance: is there trouble with walking or coordination Eyes: is there double vision or visual loss Face: Smile, do both sides of face move equally Arm: Raise arms, do both arms move equally Speech: Is speech slurred or inappropriate Time: Time is critical, call 911 immediately Heart Attack Signs Chest discomfort: Most heart attacks involve discomfort in the center of the chest and lasts more than a few minutes, or goes away and comes back. It can feel like uncomfortable pressure, squeezing, fullness or pain. Discomfort in upper body: Symptoms can include pain or discomfort in one or both arms, back, neck, jaw or stomach. Shortness of breath: With or without discomfort. Other signs: Breaking out in a cold sweat, nausea, or lightheaded. Remember, MINUTES DO MATTER. If you experience any of these heart attack warning signs, call to get immediate medical attention! Education Materials Aortic Dissection Aortic dissection happens when there is a tear in the wall of the body's main blood vessel (aorta).The aorta leads out of the heart (ascending aorta), curves around, and then goes down the chest (descending aorta) and into the abdomen to supply arteries with blood. The wall of the aorta has inner and outer layers. When aortic dissection occurs, blood collects along the tear, while one part of the aorta continuesto carry blood to the body. Blood can also flow into the tear between the layers of the aorta. The torn part of the aorta fills with blood and swells. This can reduce blood flow through the part of the aorta that is still supplying blood to the body. Aortic dissection is a medical emergency. What are the causes? This condition is commonly caused by weakening of the artery wall due to high blood pressure. Othercauses may include: • An injury, such as from a car crash. • A complication from heart surgery or from a diagnostic procedure called coronary catheterization. • Weakness of the artery wall due to defects or genetic problems that affect the connective tissues, such as Marfan syndrome. In some cases, the cause is not known. What increases the risk? The following factors may make you more likely to develop this condition: • Having certain medical conditions, such as: ◦ High blood pressure (hypertension). ◦ Hardening and narrowing of the arteries (atherosclerosis). ◦ A condition that causes inflammation of blood vessels, such as giant cell arteritis. • Having two cusps in the aortic valve instead of three (bicuspid aortic valve). • Having a bulge in the wall of the aorta (aortic aneurysm). • Being male. • Being . • Being older than age 60. • Using stimulants such as cocaine or methamphetamine. • Smoking. • Lifting heavy weights or doing other types of strength training, also called high-intensity resistance training. What are the signs or symptoms? Signs and symptoms of aortic dissection start suddenly. The most common symptoms are: • Severe, sharp chest pain that may feel like tearing or stabbing. • Severe pain that spreads to the back, neck, jaw, abdomen, or down the legs. • Severe pain between the shoulder blades in the back. Other symptoms may include: • Trouble breathing. • Dizziness or fainting. • Sudden weakness on one side of the body. • Nausea or vomiting. • Trouble swallowing. • Coughing up blood. • Vomiting blood. • Clammy skin. How is this diagnosed? This condition may be diagnosed based on: • Your symptoms and a physical exam. This may include: ◦ Listening for abnormal blood flow sounds (murmurs) in your chest or abdomen. ◦ Checking your pulse in your arms and legs. ◦ Checking your blood pressure to see whether it is low, or whether there is a difference between themeasurements from your right arm and left arm. ◦ Comparing your heart beat to your pulse in your arms and legs. • Electrocardiogram (ECG). This test measures the electrical activity in your heart. • Chest X-ray. • CT scan. • MRI. • Echocardiogram. This uses sound waves to make images of your heart. • Transesophageal echocardiography. This test takes images of your heart through the esophagus. • Blood tests. How is this treated? It is important to treat aortic dissection as quickly as possible. Treatment may start as soon as your health care provider thinks that you have aortic dissection. Treatment depends on where the dissection is, how severe it is, and your overall health. Treatment may include: • Medicines to lower your heart rate and blood pressure. • Surgery to repair your aorta using artificial material (syntheticgraft). • A procedure to insert a stent-graft into the aorta (endovascular procedure). During this procedure: 1. A long, thin tube (stent) is inserted into an artery near the groin (femoral artery). 2. The stent is moved up to the damaged part of the aorta. 3. The stent is opened to help improve blood flow and prevent future dissection. Follow these instructions at home: If you had surgery, follow instructions from your health care provider about home care after the procedure. Activity • You may have to avoid lifting. Ask your health care provider how much you can safely lift. • Avoid activities that could injure your chest or abdomen. Ask your health care provider what activities are safe for you. • After you have recovered, try to stay active. Ask your health care provider what activities are safe for you after recovery. • Enroll in cardiac rehabilitation. This is a program that helps to improve your health and well-being. It includes exercise training, education, and counseling to help you recover. Lifestyle • Eat a heart-healthy diet, which includes lots of fresh fruits and vegetables, low-fat (lean) protein, and whole grains. Limit unhealthy fats. Eat more healthy fats such as avocados, eggs, and oily fish. • Work with your health care provider to treat any other conditions that you may have, such as obesity, high blood pressure, or diabetes. • Do not use any products that contain nicotine or tobacco. These products include cigarettes, chewing tobacco, and vaping devices, such as e-cigarettes. If you need help quitting, ask your health careprovider. • Do not use illegal drugs, especially stimulants such as cocaine or methamphetamine. General instructions • Take ilwm-upx-atygpcm and prescription medicines only as told by your health care provider. • Talk with your health care provider about how to manage stress. • Keep all follow-up visits. This is important. Get help right away if: • You develop any symptoms of aortic dissection after treatment, including severe pain in your chest,back, or abdomen. • You have pain in your chest. • You have weakness in your arm or leg. • You have pain in your abdomen. • You have trouble breathing or you develop a cough. • You faint. • You develop a racing heartbeat (palpitations). These symptoms may be an emergency. Get help right away. Call 911. • Do not wait to see if the symptoms will go away. • Do not drive yourself to the hospital. Summary • Aortic dissection happens when there is a tear in the wall of the body's main blood vessel (aorta).It is a medical emergency. • The most common symptom is severe pain in the chest or pain that spreads (radiates) to the back, neck, jaw, or abdomen. • It is important to treat aortic dissection as quickly as possible. Treatment includes medicines andsurgery. • Take gcyo-eyr-dfzysnf and prescription medicines only as told by your health care provider. This information is not intended to replace advice given to you by your health care provider. Make sure you discuss any questions you have with your health care provider. Document Revised: 11/01/2022 Document Reviewed: 05/09/2022 [employer] Patient Education © 2023 [employer] Preventing Pressure Injuries A pressure injury, also called a pressure ulcer or bedsore, is an injury to the skin and the tissueunder the skin that is caused by pressure. It can happen when your skin presses against a surface, such as a mattress or the seat of a wheelchair, for too long. The pressure on the blood vessels causes reduced blood flow to your skin. Over time, this can make the tissue and break down, causing a wound. Pressure injuries often occur: • Over bony parts of the body, such as the tailbone, shoulders, elbows, hips, heels, spine, ankles, and back of the head. • Under medical devices, such as stockings, equipment to help with breathing, tubes, and splints. • Inside the mouth or nose from dentures or tubes. How can pressure injuries affect me? Pressure injuries are caused by a lack of blood supply to an area of the skin. These injuries beginas a red or dark area on the skin and can become an open sore. They can come from a lot of pressureon the skin over a short period of time or from less pressure over a long period of time. Pressure injuries may be mild, moderate, or severe. They can cause pain, damage to your muscles, and infection. What can increase my risk for pressure injuries? You are more likely to develop this condition if: • You are in the hospital or an extended care facility. • You are bedridden or in a wheelchair. • You have an injury or disease that keeps you from: ◦ Moving like normal. ◦ Feeling pain or pressure. ◦ Telling someone if you feel pain or pressure. • You have a condition that: ◦ Makes you sleepy or less alert. ◦ Causes poor blood flow. • You need to wear a medical underwriter. • You have poor control of your bladder or bowel movements (incontinence). • You are not getting enough fluid or nutrients (malnutrition). • You have had this condition before. What actions can I take to prevent pressure injuries? Reducing pressure • Do not lie or sit in one position for a long time. Move or change position as often as told by yourhealth care provider. You may need to move: ◦ Every hour when out of bed in a chair. ◦ Every 2 hours when in bed. • Use pillows or cushions to reduce pressure on certain areas of the body. Ask your health care provider to recommend a mattress, mattress cover, cushions, pads, or heel protectors. These may include products filled with air, foam, gel, or sand. • Use medical devices that do not rub your skin. Tell your health care provider if one of your medical devices is causing pain or irritation. Skin care in the hospital If you are in the hospital, your health care providers will help you care for your skin. They may: • Inspect your skin at least twice a day. This includes the areas under or around medical devices. • Assess your nutrition and consult a dietitian if needed. • Perform regular wound care. • Help you move into a different position every few hours and adjust any medical devices. • Keep your skin clean and dry. • Use gentle cleansers and skin protectants if you are incontinent. • Moisturize your dry skin. Skin care at home • Keep your skin clean and dry. Gently pat your skin dry. • Do not rub or massage skin that is on bony areas. • Moisturize dry skin. • Use foams, creams, or powders to protect your skin from sweat, urine, and stool and reduce rubbing (friction) on the skin. • Check your skin every day for any changes in color or any new blisters or sores. Check under and around any medical devices and between skinfolds. Have a caregiver do this for you if you are not able. Nutrition • Drink enough fluid to keep your urine pale yellow. • Eat a healthy diet that includes protein, vitamins, and minerals. Ask your health care provider what types of food you should eat. Lifestyle • Do not use drugs or drink alcohol. • Do not use any products that contain nicotine or tobacco. These products include cigarettes, chewing tobacco, and vaping devices, such as e-cigarettes. If you need help quitting, ask your health careprovider. • Try to be active every day. Ask your health care provider what exercises or activities are safe foryou. General instructions • Take czob-tdb-zwcoknz and prescription medicines only as told by your health care provider. • Keep all follow-up visits. Work with your health care provider to manage any long-term (chronic) conditions. Where to find more information • The National Pressure Injury Advisory Panel (NPIAP): npiap.com Contact a health care provider if: • You feel or see any changes to your skin. This information is not intended to replace advice given to you by your health care provider. Make sure you discuss any questions you have with your health care provider. Document Revised: 11/24/2022 Document Reviewed: 11/24/2022 [employer] Patient Education © 2023 [employer] Preventing Pressure Injuries A pressure injury, also called a pressure ulcer or bedsore, is an injury to the skin and the tissueunder the skin that is caused by pressure. It can happen when your skin presses against a surface, such as a mattress or the seat of a wheelchair, for too long. The pressure on the blood vessels causes reduced blood flow to your skin. Over time, this can make the tissue and break down, causing a wound. Pressure injuries often occur: • Over bony parts of the body, such as the tailbone, shoulders, elbows, hips, heels, spine, ankles, and back of the head. • Under medical devices, such as stockings, equipment to help with breathing, tubes, and splints. • Inside the mouth or nose from dentures or tubes. How can pressure injuries affect me? Pressure injuries are caused by a lack of blood supply to an area of the skin. These injuries beginas a red or dark area on the skin and can become an open sore. They can come from a lot of pressureon the skin over a short period of time or from less pressure over a long period of time. Pressure injuries may be mild, moderate, or severe. They can cause pain, damage to your muscles, and infection. What can increase my risk for pressure injuries? You are more likely to develop this condition if: • You are in the hospital or an extended care facility. • You are bedridden or in a wheelchair. • You have an injury or disease that keeps you from: ◦ Moving like normal. ◦ Feeling pain or pressure. ◦ Telling someone if you feel pain or pressure. • You have a condition that: ◦ Makes you sleepy or less alert. ◦ Causes poor blood flow. • You need to wear a medical underwriter. • You have poor control of your bladder or bowel movements (incontinence). • You are not getting enough fluid or nutrients (malnutrition). • You have had this condition before. What actions can I take to prevent pressure injuries? Reducing pressure • Do not lie or sit in one position for a long time. Move or change position as often as told by yourhealth care provider. You may need to move: ◦ Every hour when out of bed in a chair. ◦ Every 2 hours when in bed. • Use pillows or cushions to reduce pressure on certain areas of the body. Ask your health care provider to recommend a mattress, mattress cover, cushions, pads, or heel protectors. These may include products filled with air, foam, gel, or sand. • Use medical devices that do not rub your skin. Tell your health care provider if one of your medical devices is causing pain or irritation. Skin care in the hospital If you are in the hospital, your health care providers will help you care for your skin. They may: • Inspect your skin at least twice a day. This includes the areas under or around medical devices. • Assess your nutrition and consult a dietitian if needed. • Perform regular wound care. • Help you move into a different position every few hours and adjust any medical devices. • Keep your skin clean and dry. • Use gentle cleansers and skin protectants if you are incontinent. • Moisturize your dry skin. Skin care at home • Keep your skin clean and dry. Gently pat your skin dry. • Do not rub or massage skin that is on bony areas. • Moisturize dry skin. • Use foams, creams, or powders to protect your skin from sweat, urine, and stool and reduce rubbing (friction) on the skin. • Check your skin every day for any changes in color or any new blisters or sores. Check under and around any medical devices and between skinfolds. Have a caregiver do this for you if you are not able. Nutrition • Drink enough fluid to keep your urine pale yellow. • Eat a healthy diet that includes protein, vitamins, and minerals. Ask your health care provider what types of food you should eat. Lifestyle • Do not use drugs or drink alcohol. • Do not use any products that contain nicotine or tobacco. These products include cigarettes, chewing tobacco, and vaping devices, such as e-cigarettes. If you need help quitting, ask your health careprovider. • Try to be active every day. Ask your health care provider what exercises or activities are safe foryou. General instructions • Take znrx-owd-gtwmqop and prescription medicines only as told by your health care provider. • Keep all follow-up visits. Work with your health care provider to manage any long-term (chronic) conditions. Where to find more information • The National Pressure Injury Advisory Panel (NPIAP): npiap.com Contact a health care provider if: • You feel or see any changes to your skin. This information is not intended to replace advice given to you by your health care provider. Make sure you discuss any questions you have with your health care provider. Document Revised: 11/24/2022 Document Reviewed: 11/24/2022 [employer] Patient Education © 2023 [employer] Fasciotomy for Acute Compartment Syndrome, Care After The following information offers guidance on how to care for yourself after your procedure. Your health care provider may also give you more specific instructions. If you have problems or questions, contact your health care provider. What can I expect after the procedure? After the procedure, it is common to have: • Pain. • Itching. • Stiffness. • Numbness or tingling. • A small amount of fluid draining from the incision. Follow these instructions at home: Medicines • Take dorp-hut-glqcctb and prescription medicines only as told by your health care provider. Do not take aspirin or NSAIDs, such as ibuprofen, unless your health care provider has approved. These medicines increase your risk for dangerous bleeding. • Ask your health care provider if the medicine prescribed to you: ◦ Requires you to avoid driving or using machinery. ◦ Can cause constipation. You may need to take these actions to prevent or treat constipation: ▪ Drink enough fluid to keep your urine pale yellow. ▪ Take sypd-uyg-ikdmqqv or prescription medicines. ▪ Eat foods that are high in fiber, such as beans, whole grains, and fresh fruits and vegetables. ▪ Limit foods that are high in fat and processed sugars, such as fried or sweet foods. Incision care • Follow instructions from your health care provider about: ◦ How to take care of your incision or incisions. Fasciotomy closure incisions can take 2 weeks or longer to heal. ◦ When and how you should change your bandage (dressing). If your incision is open or if you have a type of dressing that uses a sponge or foamlike material that sucks fluid out of your incision (negative pressure wound therapy, or NPWT), a contract management specialist may come to your home to change the dressing. ◦ When you should remove your dressing. • Wash your hands often with soap and water. Make sure you wash them for at least 20 seconds before and after you change your dressing. • Keep the incision area dry. Do not take baths, swim, or use a hot tub until your health care provider approves. Ask your health care provider when you can take showers. You may only be allowed to take sponge baths. • Check your incision every day for signs of infection. Check for: ◦ Redness, swelling, or more pain. ◦ Blood or more fluid. ◦ Warmth. ◦ Pus or a bad smell. Managing pain, stiffness, and swelling • Move your fingers or toes often to avoid stiffness and swelling. • Raise (elevate) the injured area above the level of your heart while you are sitting or lying down. Activity • If the procedure was done on your hand or arm, avoid any activity that involves lifting, carrying, gripping, or twisting until your health care provider says it is safe. • Do not use your injured limb to support your body weight until your health care provider says that you can. Follow weight-bearing restrictions as told. Use crutches or other devices to help you move around as directed by your health care provider. • Ask your health care provider when it is safe to drive. • You may need to see a physical therapist or occupational therapist. These therapists will help you in your recovery. Do any exercises as told by your physical or occupational therapist. • Return to your normal activities as told by your health care provider. Ask your health care provider what activities are safe for you. General instructions • Do not use any products that contain nicotine or tobacco. These products include cigarettes, chewing tobacco, and vaping devices, such as e-cigarettes. These can delay incision healing after surgery.If you need help quitting, ask your health care provider. • Keep all follow-up visits. This is important. Contact a health care provider if: • You have a fever or chills. • Your pain is not controlled with medicine. • Your incision becomes red, swollen, or painful. • You have more fluid coming from your incision. • You have blood or pus coming from your incision. • You have nausea or you have vomiting that does not go away. Get help right away if: • You have more swelling in your arm or leg. • Your pain gets worse. • You have severe pain. • You have numbness or tingling. • You are not able to move the affected leg or arm. • You have chest pain. • You have trouble breathing. • You lose feeling in your arm or leg. These symptoms may represent a serious problem that is an emergency. Do not wait to see if the symptoms will go away. Get medical help right away. Call your local emergency services (911 in the [place] Do not drive yourself to the hospital. Summary • Follow instructions from your health care provider about how to take care of your incision or incisions. Fasciotomy closure incisions can take 2 weeks or longer to heal. • Move your fingers or toes often to avoid stiffness and swelling. • Do not use any products that contain nicotine or tobacco. These products include cigarettes, chewing tobacco, and vaping devices, such as e-cigarettes. These can delay incision healing after surgery. • Keep all follow-up visits. This is important. This information is not intended to replace advice given to you by your health care provider. Make sure you discuss any questions you have with your health care provider. Document Revised: 12/28/2020 Document Reviewed: 12/28/2020 [employer] Patient Education © 2023 [employer] Fasciotomy for Acute Compartment Syndrome Fasciotomy for acute compartment syndrome is a surgery that is done to quickly relieve pressure around a muscle and restore blood flow to the area. Muscles are surrounded by a thin but tough layer oftissue (fascia). If muscles begin to swell inside the fascia, blood flow to the muscles can be cut off, and the muscles may if the pressure is not relieved. This condition is called acute compartment syndrome. Trauma, such as a crushing injury or a broken bone, is the most common cause. The most common areas to have compartment syndrome are the leg below the knee and the arm below the elbow. In fasciotomy surgery, incisions are made in the fascia to relieve pressure and allow the muscle toexpand. This is an urgent procedure that is done as soon as possible to prevent muscle . In some cases, fasciotomy may be done along with the repair of bone, arteries, and veins in the affected area. Tell a health care provider about: • Any allergies you have. • All medicines you are taking, including vitamins, herbs, eye drops, creams, and icna-kso-lbpeqjt medicines. • Any problems you or family members have had with anesthetic medicines. • Any blood disorders you have. • Any surgeries you have had. • Any medical conditions you have. • Whether you are or may be . • Any tobacco use. What are the risks? Generally, this is a safe procedure. However, problems may occur, including: • Bleeding. • Scarring. • Muscle weakness or loss of the muscle. • Pain. • Nerve damage that causes a loss of feeling. • Infection. • The need for repeated procedures. What happens before the procedure? Acute compartment syndrome is a medical emergency that requires surgery to relieve pressure. This surgery needs to be done right away. First-aid treatment Until surgery can be performed, temporary first-aid treatment is done, which may include: • Treating any injury. • Loosening or removing any cast, bandage, or external wrap that may be causing pain. • Raising, or elevating, the painful arm or leg to the same level as the heart. • Giving oxygen. • Giving fluids through an IV. • Giving pain medicine. General instructions • Follow instructions from your health care provider about eating and drinking restrictions. When thediagnosis of acute compartment syndrome is made, you may be asked not to eat or drink anything until after the surgery. • Ask your health care provider: ◦ How your surgery site will be marked. ◦ What steps will be taken to help prevent infection. These may include: ▪ Removing hair at the surgery site. ▪ Washing skin with a germ-killing soap. ▪ Receiving antibiotic medicine. What happens during the procedure? Your exact procedure will depend on where your acute compartment syndrome is located. In general, the following occurs during this procedure: • An IV will be inserted into one of your veins. • You will be given one or more of the following: ◦ A medicine to help you relax (sedative). ◦ A medicine to make you fall asleep (general anesthetic). ◦ A medicine that is injected into an area of your body to numb the area (local anesthetic). • Your surgeon will make one or more incisions in the area where the acute compartment syndrome is located. • Your incisions may not be closed during surgery. They may be covered with: ◦ Bandages (dressings) until the pressure in the area decreases. ◦ A dressing that uses a sponge or foamlike material to suck fluid out of your incisions (negative pressure wound therapy, or NPWT). The procedure may vary among health care providers and hospitals. What happens after the procedure? • Your blood pressure, heart rate, breathing rate, and blood oxygen level will be monitored until youleave the hospital or clinic. • Your kidney function and urine will be checked for signs of ongoing breakdown of muscle tissue. • You will be given medicine for pain. • You may continue to get fluids and antibiotics through the IV. • Your incision or incisions will be checked often. • You will be checked again in the operating room in the next few days. At that time, further treatments or wound closure will be done. This may include stitches (sutures) or skin graft. A skin graft is a procedure to cover an area of damaged or missing skin with a piece of healthy skin. Summary • Acute compartment syndrome occurs when muscles begin to swell inside the tough layer of tissue (fascia) that surrounds them. Blood flow to the muscles can be cut off, and the muscles may if the pressure is not relieved. • Fasciotomy is a surgery to quickly relieve pressure around a muscle and restore blood flow to the area. • In fasciotomy surgery, an incision is made in the fascia to relieve pressure and allow the muscle to expand. • This is an urgent procedure that needs to be done right away. This information is not intended to replace advice given to you by your health care provider. Make sure you discuss any questions you have with your health care provider. Document Revised: 12/28/2020 Document Reviewed: 12/28/2020 [employer] Patient Education © 2023 [employer] Abdominal Aortic Aneurysm Open Repair Abdominal aortic aneurysm open repair is surgery to fix an abdominal aortic aneurysm (AAA). An aneurysm is a bulge in an artery. It happens when blood pushes against a weak or damaged artery wall. AnAAA happens in the lower part of the main artery of the body (aorta). Surgery may be done if the AAA: • Causes pain in your back, abdomen, or side. • Gets so large it might burst (rupture). A rupture is a medical emergency. It can cause bleeding inside your body. During this surgery, a small tube made of artificial material (aortic graft) is put in the damaged or weak part of the aorta to fix it. Tell a health care provider about: • Any allergies you have. • All medicines you are taking, including vitamins, herbs, eye drops, creams, and pwef-fik-eoxldui medicines. • Any problems you or family members have had with anesthesia. • Any bleeding problems you have. • Any surgeries you have had. • Any medical conditions you have. • Whether you are or may be . What are the risks? Your health care provider will talk with you about risks. These may include: • Infection. • Bleeding. • Allergic reactions to medicines. • Damage to nearby structures or organs. • Blood clots. • Very low blood pressure. Other problems may include: • Lung problems. • Heart attack. • Kidney problems. What happens before the procedure? When to stop eating and drinking Follow instructions from your provider about what you may eat and drink. These may include: • 8 hours before your procedure ◦ Stop eating most foods. Do not eat meat, fried foods, or fatty foods. ◦ Eat only light foods, such as toast or crackers. ◦ All liquids are okay except energy drinks and alcohol. • 6 hours before your procedure ◦ Stop eating. ◦ Drink only clear liquids, such as water, clear fruit juice, black coffee, plain tea, and sports drinks. ◦ Do not drink energy drinks or alcohol. • 2 hours before your procedure ◦ Stop drinking all liquids. ◦ You may be allowed to take medicines with small sips of water. If you do not follow your provider's instructions, your procedure may be delayed or canceled. Medicines Ask your provider about: • Changing or stopping your regular medicines. These include any diabetes medicines or blood thinnersyou take. • Taking medicines such as aspirin and ibuprofen. These medicines can thin your blood. Do not take them unless your provider tells you to. • Taking mvrt-ulx-orjddjn medicines, vitamins, herbs, and supplements. Tests You may have tests done. These may include: • Blood tests. • Electrocardiogram (ECG). This test checks your heart rhythm. • Imaging tests, such as ultrasound, CT scan, or MRI. These may be done to see where the aneurysm is and how big it is. • A stress test, if you have signs of heart problems. Surgery safety Ask your provider: • How your surgery site will be marked. • What steps will be taken to help prevent infection. These steps may include: ◦ Removing hair at the surgery site. ◦ Washing skin with a soap that kills germs. ◦ Taking antibiotics. General instructions • Do not use any products that contain nicotine or tobacco for at least 4 weeks before the procedure.These products include cigarettes, chewing tobacco, and vaping devices, such as e-cigarettes. If you need help quitting, ask your provider. • If you will be going home right after the procedure, plan to have a responsible adult: ◦ Take you home from the hospital. You will not be allowed to drive. ◦ Care for you for the time you are told. What happens during the procedure? • An IV will be inserted into one of your veins. • You may be given: ◦ A sedative. This helps you relax. ◦ Anesthesia. This keeps you from feeling pain. It will make you fall asleep for surgery. • A soft tube (catheter) will be put in your bladder. This will be used to drain urine during and after surgery. • A breathing tube will be placed down your throat into your lungs. This will breathe for you during surgery. • An incision will be made in your abdomen near the aneurysm. • A clamp will be put above the aneurysm. A second clamp will be put below it. These will stop blood flow. • The aneurysm will be opened. • The graft will be sewn to healthy parts of the aorta, right above and below the aneurysm. • The de la torre of the open aneurysm will be wrapped around the graft. The artery will be sewn closed. • The clamps will be removed. This will let the blood flow again. • The incision will be closed using stitches (sutures) and skin glue, tape strips, or tanya. It will then be covered with a bandage (dressing). The procedure may vary among providers and hospitals. What happens after the procedure? • Your blood pressure, heart rate, breathing rate, and blood oxygen level will be monitored until youleave the hospital. • You may be given pain medicine as needed. • Many of the tubes placed during surgery may be left in place during the first few hours or days of recovery. • Ultrasound may be done to check that the repair was done right. • You may be asked to cough and do deep breathing exercises. This helps prevent infection in the lungs. • Wear compression stockings as told by your provider. These stockings help to prevent blood clots and reduce swelling in your legs. This information is not intended to replace advice given to you by your health care provider. Make sure you discuss any questions you have with your health care provider. Document Revised: 01/30/2023 Document Reviewed: 01/30/2023 [employer] Patient Education © 2023 [employer] Abdominal Aortic Aneurysm An aneurysm is a bulge in an artery. It happens when blood pushes against a weak or damaged artery wall. An abdominal aortic aneurysm (AAA) is an aneurysm in the lower part of the aorta. The aorta isthe main artery of the body. It supplies blood from the heart to the rest of the body. Most aneurysms do not cause symptoms. Some can cause problems. An AAA can cause two serious problems: • It can grow and then burst (rupture). • It can cause blood to flow between the layers of the wall of the aorta through a tear (aortic dissection). These problems are medical emergencies. They can cause bleeding inside the body. They should be treated right away. What are the causes? The exact cause of this condition is not known. What increases the risk? You may be more likely to develop an AAA if: • You are male and 60 years of age or older. • You are . • You use or have used nicotine or tobacco products. • You have a family history of aneurysms. • You have an injury or trauma to your aorta. • You are obese. • You have: ◦ Arteriosclerosis. This is when your arteries harden. ◦ Arteritis. This is inflammation of the de la torre of an artery. ◦ Certain genetic conditions. ◦ Infectious aortitis. This is an infection in the wall of your aorta caused by bacteria. ◦ High cholesterol. ◦ High blood pressure (hypertension). What are the signs or symptoms? Symptoms depend on how big the aneurysm is and how fast it is growing. Most grow slowly and do not cause symptoms. In some cases, you may have: • Severe pain in your abdomen, side, or lower back. • A feeling of fullness after you eat only a little bit of food. • A throbbing lump in your abdomen. • Painful feet or toes. You may also have discolored skin or sores on your feet or toes. • Constipation or trouble peeing (urinating). If your AAA bursts, you may: • Feel sudden, severe pain in your abdomen, side, or back. • Have nausea or vomiting. • Feel light-headed or faint. How is this diagnosed? This condition may be diagnosed with a physical exam to check for throbbing and listen to blood flow in your abdomen. You may also have tests, such as: • Ultrasound. • X-rays. • CT scan. • MRI. • Angiogram. This test checks your arteries for damage or blockage. Because most AAAs that have not burst do not cause symptoms, they are often found during exams for other conditions. How is this treated? Treatment depends on: • The size of your aneurysm. • How fast your aneurysm is growing. • Your age. • Risk factors for a burst AAA. If your aneurysm is smaller than 2 inches (5 cm), your health care provider may: • Keep an eye on it to see if it gets bigger. You may need to have an ultrasound every 6–12 months,every year, or every few years. • Give you medicines to control blood pressure, treat pain, or fight infection. If your aneurysm is larger than 2 inches (5 cm), you may need surgery. Follow these instructions at home: Eating and drinking • Eat a heart-healthy diet. This includes lots of fresh fruits and vegetables, whole grains, low-fat (lean) protein, and low-fat dairy products. • Avoid foods that are high in saturated fat and cholesterol. These include red meat and some dairy products. Lifestyle • Do not use any products that contain nicotine or tobacco. These products include cigarettes, chewing tobacco, and vaping devices, such as e-cigarettes. If you need help quitting, ask your provider. • Check your blood pressure often. Follow instructions on how to keep it within normal limits. • Have your cholesterol levels checked often. Follow instructions on how to keep levels within normallimits. • Stay active. Exercise on a regular basis. Talk with your provider about how often to exercise and which types of exercise are safe for you. • Maintain a healthy weight. Alcohol use • Do not drink alcohol if: ◦ Your provider tells you not to drink. ◦ You are , may be , or plan to become . • If you drink alcohol: ◦ Limit how much you have to: ▪ 0–1 drink a day if you are female. ▪ 0–2 drinks a day if you are male. ◦ Know how much alcohol is in your drink. In the [place] one drink is one 12 oz bottle of beer (355 mL), one 5 oz glass of wine (148 mL), or one 1½ oz glass of hard liquor (44 mL). General instructions • Take pwpz-mrx-jtwtbxn and prescription medicines only as told by your provider. • You may have to avoid lifting. Ask your provider how much you can safely lift. • If you can, learn your family's health history. • Keep all follow-up visits. Your provider will need to watch the size of your aneurysm and how fast it is growing. Where to find more information • [place] [employer]: heart.org Contact a health care provider if: • You have pain in your abdomen, side, or back. • You have a throbbing mass in your abdomen. • Your heart beats fast when you stand. • You have nausea or vomiting. • You are constipated or have trouble peeing. • You have a fever. Get help right away if: • You have sudden, severe pain in your abdomen, side, or back. • You feel light-headed, or you faint. • You have sweaty, clammy skin. • You are short of breath. These symptoms may be an emergency. Get help right away. Call 911. • Do not wait to see if the symptoms will go away. • Do not drive yourself to the hospital. This information is not intended to replace advice given to you by your health care provider. Make sure you discuss any questions you have with your health care provider. Document Revised: 01/30/2023 Document Reviewed: 01/30/2023 [employer] Patient Education © 2023 [employer] Fall Prevention in Hospitals, Adult Staying in the hospital puts you at risk of falling. Falls can cause serious injuries, but they canbe prevented. Make sure you know what puts you at risk for falling and what you and your health care team can do to prevent falls. If you or a loved one falls in the hospital, tell the hospital staff about it. What can increase my risk of falls? Factors that increase your risk of falling in the hospital include: • Being in an unfamiliar environment, especially when using the bathroom at night. • Having surgery or being on bed rest. • Taking many medicines or certain types of medicines, such as sleeping pills. Some medicines can cause confusion, trouble with balance, dizziness, or low blood pressure. • Having tubes in place, such as IVs or catheters. Other risk factors for falls while in the hospital include: • Having trouble with hearing or vision. • Having depression. • Needing to use the toilet frequently. • Having fallen during the past 3 months. What actions can I take to prevent falls? If you or a loved one has to stay in the hospital: • Ask about which fall prevention strategies will be in place. • Do not get up by yourself if you have been asked to call for help when getting up. Asking for help to get up is for your safety, and the staff is there to help you. • Wear non-skid shoes or non-skid slippers. • Get up slowly, and sit at the side of the bed for a few minutes before standing up. • Keep items you need close to you, such as the call button or a phone, so that you do not need to reach for them. • Wear eyeglasses or hearing aids as told by your health care provider. • Have someone stay in the hospital with you or your loved one. • Ask if sleeping pills or other medicines that can cause confusion or dizziness are necessary if they are prescribed to you or a loved one. What does the hospital staff do to help prevent falls? Hospitals have systems in place to prevent falls and accidents, which may include: • Discussing your fall risk and making a personalized fall prevention plan. • Checking in regularly to see if you need help. Some hospitals use video monitoring that allows a staff member to come to you if you need help. • Placing an armband on your wrist or a sign near your room to alert other staff of your needs. • Using an alarm on your hospital bed. This is an alarm that goes off if you get out of bed and forget to call for help. • Keeping the bed in a low and locked position. • Keeping the area around the bed and bathroom well-lit and not cluttered. • Having a staff person stay with you (one-on-one observation), even when you are using the bathroom.This is for your safety. • Using safety equipment, such as: ◦ A belt around your waist. ◦ Walkers, crutches, and other devices for support. ◦ Safety beds, such as low beds, or cushions on the floor next to the bed. What other actions can I take to prevent falls? • Check in regularly with your provider or pharmacist to review all medicines that you take. • Make sure that you have a regular exercise program to stay physically fit. This will help you maintain your balance. • Talk with a physical therapist if recommended by your provider. A physical therapist can help you learn to do exercises to improve movement and strength. • If you are over 65 years old: ◦ Ask your provider if you need a calcium or vitamin D supplement. ◦ Have your eyes and hearing checked every year. ◦ Have your feet checked every year. This information is not intended to replace advice given to you by your health care provider. Make sure you discuss any questions you have with your health care provider. Document Revised: 02/26/2023 Document Reviewed: 02/26/2023 [employer] Patient Education © 2023 [employer]. Anesthesiology procedure note * MD Palomo, Carlos Sharma: MODIFY MD Palomo, Carlos Sharma: MODIFY, SIGN MD Culver Christopher A: SIGN, VERIFY MD Palomo, Carlos Sharma: VERIFY, SIGN Event Display: Anes Acute Pain Procedure Note Authored Date: [id number] Patient: MASOOD ORELLANA Age: 68 years Sex: Male : 1955 Associated Diagnoses: None Author: DO Jovel Joshua Health Status Allergies: Allergic Reactions (Selected) No Known Medication Allergies, Allergies (1) Active Reaction No Known Medication Allergies None Documented . Current Medication: (Selected) Inpatient Medications Ordered Ancef: 1,000 mg, 50 mL, 100 mL/HR, IV, q8h Colace: 100 mg, PO, bid Dextrose 50% syringe: 25 mL, IV Push, As indicated, PRN: per protocol Dextrose 50% syringe: 50 mL, IV Push, As indicated, PRN: per protocol Dulcolax Laxative (vegetable base) 10 mg rectal suppository: 10 mg, 1 supp, IL, Daily EPINEPHrine for infusion 4 mg [0.08 mcg/kg/min] + sodium chloride 0.9% (normalized drips) 250 mL...: 20.1 mL/HR, IV Drip, Stop: 11/10/24 21:49:00 EDT Electrolyte IV Solution 1,000 mL: 60 mL/HR, IV Fluid, Stop: 11/10/24 21:49:00 EDT Lipitor: 40 mg, PO, Daily MiraLax: 17 g, PO, Daily Protonix: 40 mg, PO, Daily Zofran: 4 mg, IV Push, q6h, PRN: nausea and vomiting calcium gluconate: 2,000 mg, 100 mL, IV, As indicated, PRN: see order comments cyclobenzaprine: 5 mg, PO, tid, PRN: spasms insulin regular for infusion 100 unit + sodium chloride 0.9% (normalized drips) 100 mL: Per Protocol, IV Drip, Stop: 11/10/24 22:49:00 EDT magnesium sulfate: 2,000 mg, 50 mL, 50 mL/HR, IV, As indicated, PRN: see order comments magnesium sulfate: 4,000 mg, 100 mL, IV, As indicated, PRN: see order comments morphine: 2 mg, IV Push, q1h, PRN: pain - moderate (4-6) morphine: 4 mg, IV Push, q1h, PRN: pain - severe (7-10) mupirocin 2% nasal ointment: 1 appl, each nostril, bid norepinephrine for infusion 4 mg + sodium chloride 0.9% (vasoactive drips) 250 mL: titrate, IV Drip, Stop: 11/10/24 22:49:00 EDT oxyCODONE: 10 mg, PO, q4h, PRN: pain - severe (7-10) oxyCODONE: 5 mg, PO, q4h, PRN: pain - moderate (4-6) potassium chloride: 20 mEq, 50 mL, IV, As indicated, PRN: see order comments pregabalin: 75 mg, PO, bid vancomycin: 1,000 mg, 200 mL, 200 mL/HR, IV, q12h Prescriptions Prescribed Metoprolol Succinate ER 25 mg oral tablet, extended release: 1 tab, PO, Daily, 360 tab, 0 Refill(s) ezetimibe 10 mg oral tablet: 1 tab, PO, Daily, 90 tab, 2 Refill(s) ketoconazole 2% topical cream: 1 appl, topical, bid, to right foot, 30 g, 5 Refill(s) lisinopril 40 mg oral tablet: 1 tab, PO, Daily, 90 tab, 2 Refill(s) meloxicam 7.5 mg oral tablet: 1 tab, PO, Daily, 90 tab, 3 Refill(s) montelukast 10 mg oral tablet: 1 tab, PO, qPM, 90 tab, 1 Refill(s) rosuvastatin 40 mg oral tablet: See Instructions, 1 tab PO Every other day, 90 tab, 3 Refill(s) Documented Medications Documented Aspir-Low 81 mg oral delayed release tablet: 1 tab, PO, Daily Fish Oil 1000 mg oral capsule: Vitamin D3: 50 mcg, PO, Daily fexofenadine: 180 mg, PO, Daily, will prn take BID fluticasone 50 mcg/inh nasal spray: 1 spray, each nostril, Daily ipratropium 21 mcg/inh (0.03%) nasal spray: 2 spray, each nostril, tid, PRN: as needed for allergy symptoms loratadine 10 mg oral capsule: 1 cap, PO, Daily. Procedure Assessment VS/Measurements: Vital Signs 09/11/2024 21:45 EST Heart Rate 94 bpm Systolic Blood Pressure Arterial 118 Diastolic Blood Pressure Arterial 52 Mean Arterial Pressure 71 SpO2 90 % CVP Reading-water manometer 16 mmHg 09/11/2024 21:45 EST Temperature 36.1 DegC LOW Temperature Route Temporal . Assessment: Procedure Date: 09/11/2024. Consent for regional Procedure: Yes. Pain Assessment: Pain Location: Chest, Bilateral. Acute Pain Procedure Procedure Location: OR. Timing of Procedure: Pre-emergence. Correct Site/Side Identified/Marked: Yes. Patient Monitored: Yes. Oxygen Available: Yes. Time Out Complete: Yes. Sterile field established: Yes. Ultrasound probe covered with sterile sleeve as indicated: Yes. Nerve identified and examined with ultrasound: Yes. Needle advanced to desired location under ultrasound guidance: Yes. Ultrasound image stored in PACS: No. Procedure Start Time: 09/11/2024 21:00:00. Procedure End Time: 09/11/2024 21:05:00. Attending Present: Yes. Anesthesiologist: MD Culver Christopher A. Referring Physician: MD Cesar Jonathan M. Patient Awake and Alert: No. Peripheral Block + Block: Primary. Patient Position: Supine. Block Location: Chest bilateral. Laterality: Bilateral. Sedation: General Anesthesia. Skin Preparation: Chlorhexidine. Needle Type: Short Bevel/Non-Stimulating. MRI Compatible: Yes. Needle Gauge: 22. Local Infiltration: No. Technique: Single Injection. Block Description: pectointercostal . Nerve Localization Technique: Ultrasound. # of attempts: 1 . Aspiration: None. Medication Injected: PowerOrders Pharmacy: BUPivacaine 0.25% (Order): 50 mL, perineural, ONCE. Fractionated Dose: 5 mL. Total Volume Injected: 50 (25mL on each side) mL. Parasthesia: No. Block Complications: No. Professional Services Resident/Fellow/ANESTHESIOLOGY TEACHER: DO Jovel Joshua. Acute Pain Procedure For Post Op Pain Management: Yes. Physician Attestation: Attending Attestation: I agree with the above described procedure details and was personally present for the randhawa portions of the procedure. Javier Culver, attending physician.. Anesthesia Hospital Charge AdHoc Form: Regional Anesthesia Section Completed: Yes. Electronic Signature on File Electronically Reviewed/Signed by: Herberth Jovel DO Author Signature Dt/Tm:09/11/2024 09:53 PM Resident Department of Anesthesia Electronically Reviewed/Signed by: Carlos Culver MD Cosigner Signature Dt/Tm: 09/12/2024 01:38 PM Department of Anesthesia DIA[facility] Patient Care team information Care Team Personnel Name: BIJU Mcdaniel Terra L Position: Nurse Pract - Vascular Surg Member Role: Lifetime Relationship Address: [address] [place] [address] Telecom: [phone] Name: MD Perez Amy L Position: Physician - Family Med Member Role: Primary Care Provider Address: [address] [place] [address] Telecom: [phone] Care Team Related Persons Name: KIKO ORELLANA Insurance Providers Guarantor name: MASOOD Pam ESTEBAN Health Plan Information #: 1 Payer: MEDICARE Member Number: [id number] Policy Number: NA Group Number: NA Health Plan Information #: 2 Payer: [employer] Member Number: [id number] Policy Number: NA Group Number: NA Health Plan Information #: 3 Payer: SELF PAY Member Number: NA Policy Number: NA Group Number: NA
[2024-10-09 07:01] LABS: Hematocrit (blood only) 30.6 % (42.0-52.0); Hemoglobin 9.7 g/dl (14.0-18.0); Mean Corpuscular Hemoglobin 29.8 pg (25.0-34.0); Mean Corpuscular Hgb Conc 31.7 g/dL (32.0-36.0); Mean Corpuscular Volume 93.9 fL (80.0-100.0); Mean Platelet Volume 7.8 fL (9.4-12.4); Platelet Count 270 K/uL (130-400); RDW Coefficient of Variation 14.8 % (11.5-14.5); RDW Standard Deviation 50.7 fL (36.4-46.3); Red Blood Count 3.26 M/uL (4.70-6.10); White Blood Count 6.74 K/ul (4.8-10.8)
[2024-10-09] MEDS: PANTOprazole 40 MG TAB PO SCH (07:11)
[2024-10-09 07:17] LABS: BUN Creatinine Ratio 28.2 (10-20); Calcium 9.2 mg/dl (8.6-10.3); Creatinine Clr Calc Pharmacy 79.5 ml/min; Potassium 3.8 mmol/L (3.5-5.1)
[2024-10-09] MEDS: ASPIRIN 81 MG ECTAB PO SCH (09:28)
[2024-10-09] MEDS: carvediloL 6.25 MG TAB PO SCH (09:28)
[2024-10-09] MEDS: CHOLECALCIFEROL 25 MCG (1000 UNITS) TAB PO SCH (09:29)
[2024-10-09] MEDS: FUROSEMIDE 40 MG TAB PO SCH (09:29)
[2024-10-09] MEDS: LORATADINE 10 MG TAB PO PRN (09:30)
[2024-10-09] MEDS: FINASTERIDE 5 MG TAB PO SCH (09:32)
--- NOTE | 2024-10-09 09:48 | Electrocardiogram Report ---
Test Reason : Blood Pressure : */* mmHG Vent. Rate : 103 BPM Atrial Rate : 103 BPM P-R Int : 146 ms QRS Dur : 82 ms QT Int : 350 ms P-R-T Axes : 77 25 183 degrees QTcB Int : 458 ms Sinus tachycardia Voltage criteria for left ventricular hypertrophy with repolarization abnormality with repolarization abnormality T-wave inversion in Anterior leads , consider ischemia Abnormal ECG When compared with ECG of 08-Oct-2024 16:29, T wave inversion less evident in Anterior leads Confirmed by Alejandro Celeste ([id number]) on 10/09/2024 9:48:34 AM Referred By: [facility] Confirmed By: Alejandro Celeste
--- NOTE | 2024-10-09 09:48 | Electrocardiogram Report ---
Test Reason : Blood Pressure : */* mmHG Vent. Rate : 96 BPM Atrial Rate : 96 BPM P-R Int : 130 ms QRS Dur : 84 ms QT Int : 384 ms P-R-T Axes : 66 -9 122 degrees QTcB Int : 485 ms Normal sinus rhythm Left ventricular hypertrophy with repolarization abnormality ( Sokolow-Cantu , Nu Mine product ) T-wave inversion in Anterior leads , consider ischemia Abnormal ECG When compared with ECG of 11-Sep-2024 10:53, Vent. rate has increased by 42 bpm T wave inversion now evident in Anterior leads Confirmed by Alejandro Celeste ([id number]) on 10/09/2024 9:48:03 AM Referred By: [facility] Confirmed By: Alejandro Celeste
[2024-10-09] MEDS: oxyCODONE HCL IR 5 MG TAB (IMMEDIATE RELEASE) PO PRN (10:05)
[2024-10-09] MEDS: guaiFENesin 600 MG TABCR PO ONE (14:40)
--- NOTE | 2024-10-09 15:05 | Communication Note ---
Date of Service: October 09, 2024 By CMS guidelines, a determination that the admission or continued stay is not medically necessary has been made by a member of the UR committee and a physi shauna for this hospital stay, therefore a Code 44 will be completed and the Inpatient admission will be changed to outpatient.
[2024-10-09] MEDS: FUROSEMIDE 40 MG/4 ML VIAL IV ONE (15:09)
--- NOTE | 2024-10-09 15:36 | Discharge Summary ---
Discharge Summary Date of Service October 09, 2024 Principal Dx & Hospital Course #1 = Principal Diagnosis (1) CAD (coronary artery disease): (2) Asthma: (3) BPH (benign prostatic hyperplasia): Plan 68-year-old male presents with chest pain after recent aortic dissection repair. Patient had repair done at [facility]. He has residual distal dissection that involve most of his descending aorta. He is a femorofemoral bypass. He had a wound VAC in place from fasciotomy on his lower extremity which is currently on cephalexin for infection. He has a mildly elevated troponin and presentation and an abnormal EKG although has some similar T wave changes to the postoperative EKG to compare. There appears to be no acute current of injury. 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 #Chest pain elevated troponin. Patient has known history of coronary disease with a previous stent to his circumflex artery. troponins without uptrend. Echo with presereved EF but with sig elevated right heart hypertension, discussion with rehab, attempt to diurese, continue his carvedilol. Aspirin. Atorvastatin 40 apixaban 5 Zetia 10. The patient typically follows with [facility] cardiology #Peripheral artery disease with femorofemoral bypass and fasciotomies of his left lower extremity currently on cephalexin for antibiotic therapy with daily wound changes required. #Asthma patient follows with pulmonary medicine he does have pulmonary nodules with are stable. He will continue on his Singulair and have as needed Flonase for nasal congestion. Significant congestion, continue mucinex #History of BPH patient has previously been on Proscar therapy but currently not receiving any he has previously had prostate procedures done to improve his flow. Notes For Next Care Provider push diuresis as renal function and bp allow to help with pulm htn congestion hopefully helped with decongestants, did not have pneumonia on imag ing Admission HPI Per Admitting Provider 68-year-old male who presented on September [address] [place] [address] was found to h ave a type B aortic dissection involving the aortic arch and extending to the great vessels. He was transferred emergently to [facility] for repair [facility] developed some chest discomfort. His initial presenting symptoms was chest and jaw discomfort so he presented to our facility. He has a mildly elevated troponin to the 40s and an abnormal EKG although we do not have a postop EKG to compare to. He had a wound VAC on his leg from the bypass insertion site does not appear to be actively infected he is mildly anemic but his hemoglobin in the 10 g range, his renal function is stable and he is a known horseshoe kidney. The emergency room physician Dr. Snell reportedly discussed his imaging of his chest abdomen pelvis with [facility] and they feel his repair is intact. This also notes of femorofemoral bypass and that the dissection is still extended distally through the descending aorta into the iliac arteries including the renal arteries in the arteries of the gut some being supplied by the true lumen some being supplied by the false lumen Discharge Exam The patient appeared well nourished and normally developed. Vital signs as documented. Head exam is normocephalic atraumatic Neck is without JVD, thyromegaly, or carotid bruits. Lungs are clear to auscultation, no focal loss of breath sounds Cardiac exam, Rhythm is regular.. No murmurs, rubs or gallops. Abdominal exam reveals normal bowel sounds, soft non tender, no masses Extremities are nonedematous and both pedal pulses are present Neurologic exam is alert and oriented, no focal loss of strength or sensation Skin is without bruises or rashes Psychologically is without concerns for anxiety or depression.. Discharge Plan Discharge Items Patient Disposition: Transfer Inpatient Rehab Fac Reason For Visit: CHEST PAIN Discharge Diagnosis: chest pain recent aortic aneurysm repair pulm hypertension on echo Activity: Per Instructions section Activity Comment: Per PT/OT Non-emergency contact: Primary Care Provider, Surgeon and Wildlife Policy Professional Call non-emergency contact if: your symptoms worsen Follow-up/Referrals: Jake Velasquez DO [Physician] - Renee Perez MD [Primary Care Provider] - Diet: Heart Healthy Addtl Attending Provider Instructions: you did not have any changes on your Echo to suggest heart muscle damage, you do have evidence of Pulmonary hypertension which can be treated with a diuretic Please continue with good wound care for you leg Pending Studies at Discharge: No Stand-Alone Forms: My [facility] Skilled Items Patient informed of condition?: Yes DNR: No Discharge Level of Care: Acute rehab Communicable Disease: No Discharge Prognosis: Stable Lines: None Urinary Catheter: No Medications and DC Order Prescriptions: Continued ipratropium bromide 21 mcg (0.03 %) spray,non-aerosol 2 spray intranasal BID PRN (Reason: nasal drainage) 90 Days Qty: 3 4RF Rx Instructions: administer into each nostril cholecalciferol (vitamin D3) [Vitamin D3] 25 mcg (1,000 unit) capsule 2,000 unit PO QAM montelukast [Singulair] 10 mg Tablet 10 mg PO HS ezetimibe [Zetia] 10 mg Tablet 10 mg PO DAILY finasteride 5 mg tablet 5 mg PO QAM Patient Comments: "Temporary hold" fluticasone propionate [Flonase Allergy Relief] 50 mcg/actuation spray,suspension 1 spray intranasal DAILY Rx Instructions: administer into each nostril furosemide [Lasix] 40 mg Tablet 40 mg PO DAILY atorvastatin 40 mg Tablet 80 mg PO HS acetaminophen [Tylenol] 325 mg Tablet 650 mg PO Q4H PRN (Reason: Pain (Scale Score 1-3)) carvedilol 6.25 mg Tablet 6.25 mg PO BIDM Rx Instructions: must administer with a meal/food albuterol sulfate 2.5 mg /3 mL (0.083 %) Solution For Nebulization 2.5 mg INHALATION Q4H PRN (Reason: Wheezing) ondansetron HCl 4 mg Tablet 4 mg PO Q6H PRN (Reason: NAUSEA/VOMITING) sennosides-docusate sodium [Senokot-S] 8.6-50 mg Tablet 1 tab-cap PO QDL PRN (Reason: Constipation) acetaminophen [Tylenol Extra Strength] 500 mg Tablet 1,000 mg PO Q4H PRN (Reason: TEMP > 100.5 F) acetaminophen [Tylenol Extra Strength] 500 mg Tablet 1,000 mg PO Q8H lorazepam 0.5 mg Tablet 0.5 mg PO TID PRN (Reason: Anxiety) bisacodyl 10 mg Suppository 10 mg AR DAILY PRN (Reason: Constipation) cephalexin 500 mg Capsule 500 mg PO QID Rx Instructions: STARTED 10/05/24 pantoprazole 40 mg Tablet,Delayed Release (Dr/Ec) 40 mg PO DAILYBB Fleet Enema 19-7 gram/118 mL Enema 118 ml AR DAILY PRN (Reason: Constipation) nitroglycerin [Nitrostat] 0.4 mg Tablet, Sublingual 0.4 mg sublingual DIRECTED PRN (Reason: Chest Pain) docusate sodium 100 mg Capsule 100 mg PO BID PRN (Reason: Constipation) hydrocortisone 2.5 % Cream 1 applic TOPICAL BID PRN (Reason: Hemorrhoids) calcium carbonate 500 mg calcium (1,250 mg) Tablet,Chewable 500 mg PO Q8H PRN (Reason: Indigestion) polyethylene glycol 3350 [Miralax] 17 gram/dose Powder 17 g PO QDL PRN (Reason: Constipation) polyethylene glycol 3350 [Miralax] 17 gram/dose Powder 17 g PO DAILY albuterol sulfate 90 mcg/actuation Hfa Aerosol Inhaler 1 inh INHALATION Q4H PRN (Reason: Wheezing) loratadine [Claritin] 10 mg Tablet 10 mg PO DAILY PRN (Reason: CONGESTION/ALLERGY SYMPTOMS) simethicone 80 mg Tablet,Chewable 120 mg PO ACHS PRN (Reason: GAS DISCOMFORT) oxycodone 5 mg Tablet 10 mg PO Q4H PRN (Reason: Pain (Scale Score 7-10)) oxycodone 5 mg Tablet 5 mg PO Q4H PRN (Reason: Pain (Scale Score 4-6)) sodium chloride 0.65 % Aerosol,Sparks 1 spray INTRANASAL .Q 30 MINUTES PRN (Reason: Congestion) Eliquis 5 mg Tablet 5 mg PO BID guaifenesin [Mucinex] 600 mg Tablet Extended Release 12hr 600 mg PO BID potassium chloride 20 mEq Tablet Extended Release 20 meq PO BID naloxone 4 mg/actuation Sparks,Non-Aerosol 4 mg INTRANASAL DIRECTED PRN (Reason: Opioid Overdose) baclofen 5 mg Tablet 5 mg PO TID Discharge Orders: Discharge Order (Routine); Ordered 10/09/24 Ordered By: Neel Bolaños Admission Data Admit Date/Time: 10/08/24 19:25 Attending Provider: Neel Bolaños Admit Provider: Neel Bolaños Primary Care Provider: Renee Perez Other Providers: Neel Bolaños; Bridgett Ferreira; [facility] Hospital Stay Data Consultations 10/08/24 18:58 ED Decision to Admit Stat 10/08/24 20:30 Consult Cardiology Routine Diagnostic Imagining Performed 10/08/24 17:09 CT angio abdomen pelvis w con Stat CT angio chest dissec wo/w con Stat Pending Results Patient Have Any Pending Studies at Discharge: No Discharge Instructions Given to Patient (Per Discharging Provider) you did not have any changes on your Echo to suggest heart muscle damage, you do have evidence of Pulmonary hypertension which can be treated with a diuretic Please continue with good wound care for you leg Total Time Total Time Spent Total Time Spent (In Minutes): It required greater than 30 minutes to prepare this patient for discharge. Coding Level of Care Code 78962 INP/OBS DISCH >30 MIN Diagnoses CAD (coronary artery disease) I25.10 Asthma J45.909 BPH (benign prostatic hyperplasia) N40.0
--- NOTE | 2024-10-10 08:18 | Cardiology Consultation ---
Date of Consultation October 09, 2024 3:30 pm Assessment & Plan (1) Thoracic aortic dissection: s/p surgery 09/11/24 (2) CAD (coronary artery disease): (3) Accelerated hypertension: (4) Tachycardia: Plan as noted above DC back to rehab max BB therapy and then add ARB anxiety control f/u with Dr. Velasquez as OP f/u with CT surgery regarding CT findings of residual dissection History of Present Illness Reason for Consultation: ECHO findings Attending Physician: Neel Bolaños MD History of Present Illness I was asked to see Mr. Green prior to him being DC back to [facility]. His history of recent TAA dissection reviewed. I read his recent ECHO which showed evidence for right sided pressure volume overload (ie PE). The septum is dyskinetic as well which is new. This COULD be related to acute pulm HTN but could also be post up septal motion from his recent surgery. I was able to go back and review his CTA with Dr. Pacheco of radiology. He felt that there was no evidence for acute PE-this was well visualized on the CTA. There is still chronic dissection noted A dissection remains beyond the repair, extending from the proximal arch, and into the right brachiocephalic artery as well as the right subclavian artery, and also into the left common carotid artery. The dissection extends distally into the aorta, including the descending thoracic aorta into the abdominal aorta, and extending into the left common iliac and the left external and internal iliac arteries. There is relative decreased enhancement of the left sided iliac arteries, likely as it is supplied primarily by the false lumen. The true lumen is seen to supply the right sided iliac arteries. The true lumen supplies of the celiac artery, SMA, right renal artery, and the BRETT. The left renal artery is supplied by the false lumen. A femorofemoral bypass is seen. Extensive surgical clips seen throughout the left groin, as well as soft tissue fullness and fluid density, likely related to evolving hematoma. The CT scan was pushed to [facility]reet[facility] for the CT surgeons to review. For now-I think he needs his BB maximized to control BP and HR and needs started on ARB as well for the TAA/dissection. His BP needs well controlled. All of this was discussed with the patient and his . His anxiety is extreme and also likely needs treated as this will impact his prognosis and care as well. The patient was examined. A total of 65 minutes was spent with the patient, additionally reviewing his ECHO, reviewing CT scan with radiology. Allergies Allergy/AdvReac Type Severity Reaction Status Date / Time No Known Allergies Allergy Verified 10/08/24 19:00 Home Medications Medication Instructions Recorded Confirmed Type montelukast 10 mg tablet 10 mg PO HS Congestion 04/29/19 10/08/24 History (Singulair) cholecalciferol (vitamin D3) 25 2,000 unit PO QAM 08/29/22 10/08/24 History mcg (1,000 unit) capsule (Vitamin D3) ezetimibe 10 mg tablet (Zetia) 10 mg PO DAILY 05/03/23 10/08/24 History finasteride 5 mg tablet 5 mg PO QAM 05/03/23 10/08/24 History fluticasone propionate 50 1 spray intranasal DAILY 06/26/24 10/08/24 History mcg/actuation nasal spray,suspension (Flonase Allergy Relief) ipratropium bromide 21 mcg (0.03 2 spray intranasal BID PRN nasal 09/12/24 10/08/24 Rx %) nasal spray drainage 90 days #3 BTLS acetaminophen 325 mg tablet 650 mg PO Q4H PRN Pain (Scale 10/08/24 10/08/24 History (Tylenol) Score 1-3) acetaminophen 500 mg tablet 1,000 mg PO Q4H PRN TEMP > 100.5 F 10/08/24 10/08/24 History (Tylenol Extra Strength) acetaminophen 500 mg tablet 1,000 mg PO Q8H 10/08/24 10/08/24 History (Tylenol Extra Strength) albuterol sulfate 2.5 mg/3 mL 2.5 mg inhalation Q4H PRN Wheezing 10/08/24 10/08/24 History (0.083 %) solution for nebulization albuterol sulfate 90 mcg/actuation 1 inh inhalation Q4H PRN Wheezing 10/08/24 10/08/24 History aerosol inhaler apixaban 5 mg tablet (Eliquis) 5 mg PO BID 10/08/24 10/08/24 History atorvastatin 40 mg tablet 80 mg PO HS 10/08/24 10/08/24 History baclofen 5 mg tablet 5 mg PO TID 10/08/24 10/08/24 History bisacodyl 10 mg rectal suppository 10 mg [place] DAILY PRN Constipation 10/08/24 10/08/24 History calcium carbonate 500 mg PO Q8H PRN Indigestion 10/08/24 10/08/24 History carvedilol 6.25 mg tablet 6.25 mg PO BIDM 10/08/24 10/08/24 History cephalexin 500 mg capsule 500 mg PO QID 10/08/24 10/08/24 History docusate sodium 100 mg capsule 100 mg PO BID PRN Constipation 10/08/24 10/08/24 History furosemide 40 mg tablet (Lasix) 40 mg PO DAILY 10/08/24 10/08/24 History guaifenesin 600 mg tablet, 600 mg PO BID 10/08/24 10/08/24 History extended release 12 hr (Mucinex) hydrocortisone 2.5 % topical cream 1 applic topical BID PRN 10/08/24 10/08/24 History Hemorrhoids loratadine 10 mg tablet (Claritin) 10 mg PO DAILY PRN 10/08/24 10/08/24 History CONGESTION/ALLERGY SYMPTOMS lorazepam 0.5 mg tablet 0.5 mg PO TID PRN Anxiety 10/08/24 10/08/24 History naloxone 4 mg/actuation nasal spray 4 mg intranasal DIRECTED PRN 10/08/24 10/08/24 History Opioid Overdose nitroglycerin 0.4 mg sublingual 0.4 mg sublingual DIRECTED PRN 10/08/24 10/08/24 History tablet (Nitrostat) Chest Pain ondansetron HCl 4 mg tablet 4 mg PO Q6H PRN NAUSEA/VOMITING 10/08/24 10/08/24 History oxycodone 5 mg tablet 5 mg PO Q4H PRN Pain (Scale Score 10/08/24 10/08/24 History 4-6) oxycodone 5 mg tablet 10 mg PO Q4H PRN Pain (Scale Score 10/08/24 10/08/24 History 7-10) pantoprazole 40 mg tablet,delayed 40 mg PO DAILYBB 10/08/24 10/08/24 History release polyethylene glycol 3350 17 17 g PO DAILY 10/08/24 10/08/24 History gram/dose oral powder (Miralax) polyethylene glycol 3350 17 17 g PO QDL PRN Constipation 10/08/24 10/08/24 History gram/dose oral powder (Miralax) potassium chloride 20 mEq 20 meq PO BID 10/08/24 10/08/24 History tablet,extended release sennosides 8.6 mg-docusate sodium 1 tab-cap PO QDL PRN Constipation 10/08/24 10/08/24 History 50 mg tablet (Senokot-S) simethicone 80 mg chewable tablet 120 mg PO ACHS PRN GAS DISCOMFORT 10/08/24 10/08/24 History sodium chloride 0.65 % nasal spray 1 spray intranasal .Q 30 MINUTES 10/08/24 10/08/24 History aerosol PRN Congestion sodium phosphates 19 gram-7 118 ml [place] DAILY PRN Constipation 10/08/24 10/08/24 History gram/118 mL enema (Fleet Enema) Patient History Medical History Adverse effect of anesthesia During one surgery had hard time regaining feeling in legs - possibly hemorrhoidectomy Diverticular disease incidental finding on colonoscopy - no issues/hospitalizations Hx of Lyme disease completed antibiotic tx Cervical spondylosis Limited ROM "I get a lot of crunching and crackles" as per patient Restless leg Pulmonary nodule Hx of sleep apnea "has had 2+ sleep studies - unable to tolerate cpap - recently did at home study and I never heard back. My says I snore." Osteoarthritis Hypertension Hyperlipidemia GERD (gastroesophageal reflux disease) Mild - "I haven't really had much in years, or any" Dyspnea pt denies Hypertrophy of nasal turbinates Chronic rhinitis Deviated septum CAD (coronary artery disease) x1 stent 2010 - [facility] Bronchitis "Chronic in the winter - no issues at present Asthma "it was just once" Ascending aorta dilatation 4.1cm per pt with last echo 06/2024 BPH (benign prostatic hyperplasia) "I put finasteride on temp hold" Surgical History Hx of bilateral inguinal hernia repair S/P excision of lipoma right shoulder Hx of wisdom tooth extraction Hx of tonsillectomy Hx of hemorrhoidectomy Hx of colonoscopy History of bunionectomy Bilateral History of bilateral cataract extraction Hx of appendectomy Status post coronary artery stent placement x1 2010 [facility] Hx of cardiac catheterization (2010) x1 stent [facility] History of transurethral resection of bladder tumor (TURBT) History of transurethral resection of prostate S/P trigger finger release right Hx of foot surgery Left Foot [employer] Bunion Correction Social History Smoking Status: Never smoker Second Hand Exposure: No; Do You Dip or Chew Tobacco: No; Hx Alcohol Use: No Hx Substance Use: No Preferred Language: Swedish Communication Ability: Effective Visual Impairment: No Limitations Customer Consultant Required: No Beliefs That Will Affect Care: None Current Living Situation: Spouse Current Living Situation Comment: [facility] for rehab then home with current occupational status: employed current occupation: Self employed android software engineer Feels Safe at Home: Yes Assistive Devices: Wheelchair Review of Systems Review of Systems: All systems reviewed & are unremarkable except as noted in HPI & below Physical Exam Cardiovascular: heart regular +S4 Chest (Breasts): Additional Comments: essentially clear Musculoskeletal: left calf with thick dressing due to fasciotomy incision Neurologic: extreme anxiety, demanding, focused on his telemetry pack and his HR
== END 2024-10-09 17:09 ==
LOC: ED 16:39 → 2S 19:25 → INTOOBSV 19:25 → SUATTDRO 19:25 → 2S 22:32